=== PATIENT | female | born 1950 | race Caucasian/White ===

== ENCOUNTER 2018-08-12 15:29 | Inpatient (IN) ==
--- NOTE | 2018-08-12 16:24 | Diag Imaging Result Doc PS360 ---
EXAM: CHEST-1 VIEW INDICATION: edema TECHNIQUE: One view COMPARISON: 07/21/2018 FINDINGS: Lung volumes remain low. There is opacification of the left mid and lower lung zone that is very similar to the previous study suggesting airspace consolidation. The right lung appears to be clear. There is no evidence of pneumothorax. Cardiac silhouette is prominent but stable. IMPRESSION: Opacification on the left that is very similar to the previous study suggesting persistent consolidation. Electronically signed by Sigifredo Shi 08/12/2018 4:22 PM
[2018-08-12 16:31] LABS: EOS# 0.08 X1000 (0.0-0.7); EOS% 2.2 % (0.0-10.0); HEMATOCRIT 26.7 % (37.0-47.0); HEMOGLOBIN 7.9 g/dL (12.0-16.0); IMM GRAN# 0.03 X1000 (0.0-0.04); IMM GRAN% 0.8 % (0.0-0.5); LYMPH# 0.75 X1000 (1.2-3.4); LYMPH% 20.8 % (20.5-51.1); MCH 23.4 PG (27-31); MCHC 29.6 g/dL (33-37); MONO# 0.37 X1000 (0.11-0.59); MONO% 10.3 % (1.7-9.3); MPV 10.5 FL (7.4-10.4); NEUT# 2.37 X1000 (1.4-6.5); NEUT% 65.9 % (42.2-75.2); PLT 116 X1000 (130-400); RBC 3.38 XMIL (4.2-5.4); RDW 20.2 % (11.5-14.5)
[2018-08-12 16:45] LABS: ALB/GLOB RATIO 0.9; ALBUMIN 2.7 g/dL (3.5-5.0); CALCIUM 7.6 mg/dL (8.8-10.2); CREATININE 2.7 mg/dL (0.5-0.9); POTASSIUM 3.9 mmol/L (3.5-5.1); TOTAL BILIRUBIN 0.2 mg/dL (0.20-1.00); TOTAL PROTEIN 5.8 g/dL (6.3-8.3)
--- NOTE | 2018-08-12 17:50 | PROVIDER DOCUMENTATION ---
HPI-General Adult - General Chief Complaint: Extremity Pain Stated Complaint: BILATERAL LEG SWELLING Time Seen by Provider: 08/12/18 17:14 Source: patient, family Allergies/Adverse Reactions: Patient Allergies Allergy/AdvReac Type Severity Reaction Status Date / Time No Known Allergies Allergy Verified 08/12/18 18:44 Home Medications: Home Medication List Medication Instructions Recorded Confirmed Last Taken Type Omeprazole [Prilosec] 40 mg PO DAILY 12/25/15 08/12/18 08/11/18 History Spironolactone 50 mg PO BID 12/25/15 08/12/18 08/11/18 History Amitriptyline HCl 1 tab PO QHS 11/18/17 08/12/18 08/11/18 History Clonidine HCl 1 tab PO BID 11/18/17 08/12/18 08/11/18 History Escitalopram [Lexapro] 10 mg PO DAILY 11/18/17 08/12/18 08/11/18 History Gabapentin 1 tab PO [id number] 11/18/17 08/12/18 08/11/18 History Metformin HCl [Metformin HCl ER] 2 tab PO BID 11/18/17 08/12/18 08/11/18 History ROSUVAstatin [Crestor] 1 tab PO QHS 11/18/17 08/12/18 08/11/18 History Insulin Lispro [Humalog Kwikpen 25 unit SQ AC 03/01/18 08/12/18 08/11/18 History U-100] Insulin Glargine [Lantus] 15 unit SUBQ QHS 03/05/18 08/12/18 08/11/18 History Torsemide [Demadex] 20 mg PO DAILY #30 tab 03/06/18 08/12/18 08/11/18 Rx Aspirin/Acetaminophen [Goody's 1 packet PO PRN PRN 07/16/18 08/12/18 08/11/18 History Body Pain Powder Pkt] Budesonide/Formoterol Inhaler 2 puff INH RTBID 07/16/18 08/12/18 08/11/18 History [Symbicort 160/4.5 Microgm Inhaler] Bumetanide 3 mg PO BID 07/16/18 08/12/18 08/11/18 History Ondansetron HCl [Zofran] 4 mg PO PRN PRN 07/16/18 08/12/18 08/11/18 History Potassium Chloride [K-Tab ER] 10 meq PO DAILY 07/16/18 08/12/18 08/11/18 History Levofloxacin [Levaquin] 500 mg PO DAILY #10 tab 07/24/18 08/12/18 08/11/18 Rx Lorazepam [Ativan] 0.5 mg PO TID #30 tablet 07/24/18 08/12/18 08/11/18 Rx Tramadol [Ultram] 50 mg PO Q4H PRN PRN tablet 07/24/18 08/12/18 Unknown Rx - History of Present Illness -Gen Adult Nature of Presenting Problems: THIS IS A 67 YEAR OLD OBESE FEMALE WITH MEDICAL HISTORY OF DIABETES MELLITUS, HYPERTENSION, CONGESTIVE HEART FAILURE, AND ALSO DVT WAS PREVIOUSLY ON XARELTO BUT ACCORDING TO THE PATIENT AND FAMILY, SHE WAS RECENTLY TAKEN OFF XARELTO ABOUT 3 MONTHS AGO DUE TO GIB WHERE SHE WAS ADMITTED AND REQUIRED TRANSFUSION. PATIENT CAME IN TODAY WITH CONCERN OF LEFT LOWER EXTREMITY DISCOMFORT. Location of Pain/Injury: reports: lower extremity (LEFT LOWER EXTREMITY DISCOMFORT.) Pain Radiation: reports: no radiation Review of Systems - Adult - REVIEW OF SYSTEMS - ADULT Constitutional: denies: chills, fever, night sweats, weight loss Eyes: denies: discharge, blurred vision Ears, Nose, Mouth & Throat: reports: no symptoms reported Cardiovascular: reports: no symptoms reported Respiratory: reports: no symptoms reported Gastrointestinal: reports: no symptoms reported Genitourinary: denies: dysuria Musculoskeletal: reports: other (LEFT LOWER EXTREMITY PAIN) Integumentary: reports: no symptoms reported Neurological: reports: no symptoms reported Psychiatric: reports: no symptoms reported Endocrine: reports: no symptoms reported Hematologic/Lymphatic: reports: no symptoms reported Past History - Adult - PAST MEDICAL HISTORY-ADULT Review of Records: reports: Old Records Reviewed Cardiovascular: reports: HTN Respiratory: reports: COPD Neurological: reports: dementia, other (neuropathy) Endocrine/Immune: reports: Diabetes - PRIOR SURGERIES/PROCEDURES Surgical/Procedure History: reports: orthopedic (extremity) (left leg Sx) - IMMUNIZATION STATUS Childhood Immunizations: See Nurse Assessment Flu Vaccine: See Nurse Assessment - FAMILY HISTORY Family History: reviewed, not pertinent Physical Exam-General - PHYSICAL EXAM-ADULT Initial Vital Signs Reviewed: Yes - CONSTITUTIONAL General Appearance: appears well, alert, no apparent distress - EYES Eyes: PERRL/EOMI - HEAD, EARS, NOSE, MOUTH & THROAT HENMT: normocephalic/atraumatic, moist mucous membranes - NECK Neck: non-tender, full range of motion, supple - RESPIRATORY Respiratory: chest non-tender, lungs clear, normal breath sounds - CARDIOVASCULAR Cardiovascular: normal peripheral pulses, regular rate, rhythm, no gallop, no JVD, no murmur, other (BILATEARL LOWER EXTREMITY NONPITTING EDEMA.) - GASTROINTESTINAL (ABDOMEN) Abdominal Exam: normal bowel sounds, non tender, soft - GENITOURINARY Female Genitalia/Pelvic Exam: external exam normal, other (FOBT DONE). negative : active bleeding Rectal Exam: normal rectal tone. negative: black stool, hemorrhoids, mass, tenderness - MUSCULOSKELETAL Back Exam: normal inspection Extremity: normal range of motion, non-tender, normal gait - SKIN Integumentary: normal color, normal turgor - NEUROLOGIC Neurologic: grossly normal - PSYCHIATRIC Psych/Mental Status: normal mood/affect, normal thought content, normal thought process, oriented x 3 Progress - PLAN OF CARE/RESULTS Progress/Plan/Lab Results: Vital Signs - 8 hr 08/12/18 16:00 Temperature 98.0 F Pulse Rate 84 Respiratory Rate 18 Blood Pressure 108/53 O2 Sat by Pulse Oximetry 86 L Laboratory Results - last 24 hr 08/12/18 08/12/18 08/12/18 16:11 16:11 16:11 WBC 3.60 L RBC 3.38 L Hgb 7.9 L Hct 26.7 L MCV 79.0 L MCH 23.4 L MCHC 29.6 L RDW Std Deviation 20.2 H Plt Count 116 L MPV 10.5 H Immature Gran % (Auto) 0.8 H Neut % (Auto) 65.9 Lymph % (Auto) 20.8 Arthur % (Auto) 10.3 H Eos % (Auto) 2.2 Baso % (Auto) 0.0 Immature Gran # (Auto) 0.03 Neut # (Auto) 2.37 Lymph # (Auto) 0.75 L Arthur # (Auto) 0.37 Eos # (Auto) 0.08 Baso # (Auto) 0.00 D-Dimer, Quantitative Sodium 134 L Potassium 3.9 Chloride 94 L Carbon Dioxide 23 L Anion Gap 17 BUN 37 H Creatinine 2.7 H Estimated GFR/1.73 m2 18 BUN/Creatinine Ratio 14 Glucose 101 Calculated Osmolality 277 Calcium 7.6 L Total Bilirubin 0.20 AST 19 ALT 27 Alkaline Phosphatase 88 Creatine Kinase 48 Troponin T [id number]-Dudvailwghs Pept 2514 H Total Protein 5.8 L Albumin 2.7 L Globulin 3.1 Albumin/Globulin Ratio 0.9 Plasma Lactate 08/12/18 08/12/18 08/12/18 16:11 16:11 16:11 WBC RBC Hgb Hct MCV MCH MCHC RDW Std Deviation Plt Count MPV Immature Gran % (Auto) Neut % (Auto) Lymph % (Auto) Arthur % (Auto) Eos % (Auto) Baso % (Auto) Immature Gran # (Auto) Neut # (Auto) Lymph # (Auto) Arthur # (Auto) Eos # (Auto) Baso # (Auto) D-Dimer, Quantitative 1.02 H Sodium Potassium Chloride Carbon Dioxide Anion Gap BUN Creatinine Estimated GFR/1.73 m2 BUN/Creatinine Ratio Glucose Calculated Osmolality Calcium Total Bilirubin AST ALT Alkaline Phosphatase Creatine Kinase Troponin T 0.011 Yrk-W-Rxgfjitajst Pept Total Protein Albumin Globulin Albumin/Globulin Ratio Plasma Lactate 2.4 H Orders Category Date Time Status CHEST-1 VIEW [RAD] Stat Exams 08/12/18 15:43 Completed BLOOD CULTURE [BLDCUL] Stat Lab 08/12/18 16:11 Ordered CBC WITH ELECTRONIC DIFF [HEME] Stat Lab 08/12/18 16:11 Completed CK PROFILE [SP CHEM] Stat Lab 08/12/18 16:11 Completed COMPREHENSIVE METABOLIC PANEL [CHEM] Stat Lab 08/12/18 16:11 Completed D-DIMER [COAG] Stat Lab 08/12/18 16:11 Completed LACTATE, PLASMA [CHEM] Stat Lab 08/12/18 16:11 Completed LACTATE, PLASMA [CHEM] Stat Lab 08/12/18 17:41 Uncollected OCCULT BLOOD SCREENING [STOOL] Stat Lab 08/12/18 17:41 Uncollected PRO B-NATRIURETIC PEPTIDE Stat Lab 08/12/18 16:11 Completed TROPONIN T Stat Lab 08/12/18 16:11 Completed TROPONIN T Stat Lab 08/12/18 17:44 Ordered EKG [EKG] Stat Ther 08/12/18 15:44 Ordered Venous U/S Bilateral Legs Stat Ther 08/12/18 17:42 Ordered Result Diagrams: 08/12/18 16:11 08/12/18 16:11 - REASSESSMENT Reassessment #1 Time Reassessed: 17:55 Status: other (PENDING BILATEARL LOWER EXTREMITY US FOR ELEVATED DDIMER. FOBT DONE AND PENDING RESULT. PATIENT SIGNED OUT TO DR. ORTIZ WHO WILL CONTINUE WITH PATIENT CARE.) - EKG 1 Time of EKG reading by physician:: 17:57 EKG Read and Signed by:: Vidal Payne EKG Interpretation (*Must complete 3 of following elements*): Normal Rate: 100 Rhythm: SINUS RHYTHM WITH PREMATURE ATRIAL COMPLEXES [place]: normal QRS: normal MD Interval: normal ST Wave: normal - CONSULTS/PCP/HOSPITALIST Notification #1 *Consult/PCP/Hospitalist*: Dr Lopez Time Discussed: 19:18 Consult Disposition: Will see in ED (Pt discussed with Dr Lopez who agreed to admit.) - CHANGE OF SHIFT REPORT (ED Provider) Report Given and Care Transferred to:: ANGEL Time of Transfer: 17:57 Items Pending: Labs, Ultrasound Results Comment: Results discussed with Pt who wants to talk to her daughter before she considers being admitted. Pt care transferred to Dr Iglesias at 1900. Departure - Departure Date of Disposition Decision: 08/12/18 Time of Disposition Decision: 19:19 DIAGNOSIS: Sepsis, Pneumonia, Cellulitis, CHF (congestive heart failure) Disposition: ADMITTED INPATIENT 09 Certified Medical Emergency: Emergent Condition: Fair - Critical Care Note This patient required my direct & personal management of CC.: Yes Total Time (mins): 30 Critical Care Statement: This patient required my direct personal management to treat or rule out processes, the absence of which, could potentiallly result in sudden, clinically significant life or limb threatening deterioration. Attestation - Physician/ MARCE Attestation The physician spent face to face time with patient:: Yes Advanced Practice Provider documentation review:: Supervising physician onsite and consulted in the evaluation and care of this patient. The physician did have a face to face encounter with the patient.
[2018-08-12] MEDS ORDERED: ROCEPHIN 1 GM in NS 50 ML IV ONE (18:59)
[2018-08-12] MEDS ORDERED: VANCOMYCIN IV PER PHARMACY MISC SCH (21:00)
[2018-08-12 21:03] LABS: INR 0.92; PROTIME 13.1 Seconds (11.0-16.0)
[2018-08-12 21:04] LABS: PTT 37.6 Seconds (22.3-41.8)
[2018-08-12] MEDS: ZOSYN 2.25 GM in NS 50 ML IV SCH (21:17)
[2018-08-12] MEDS ORDERED: NS 500 ML IV ONE (21:45)
[2018-08-12] MEDS ORDERED: VANCOMYCIN 2,000 MG in NS 500 ML IV ONE (22:00)
[2018-08-12 22:17] LABS: ALLEN TEST YES; BE 2.9 mmoll (-3.0-3.0); BLOOD TYPE ARTERIAL; HCO3-(ACT) 27.1 mmoll (20.0-26.0); METHB 0.6 % (0.0-1.5); O2(CT) 10.3 mL/dL (15.0-23.0); PO2(98.6) 67 mmHg (60-100); SAMPLE BLOOD; SAO2 94.3 % (95.0-100.0); THB 8.2 g/dL (11.5-17.4)
[2018-08-12 22:20] LABS: PCO2(98.6) 61 mmHg (35-45)
[2018-08-12 22:21] LABS: MODALITY CANNULA; O2HB 88.4 % (95.0-99.0)
[2018-08-12 22:55] LABS: URINE SOURCE CATH
[2018-08-12 23:01] LABS: BILIRUBIN URINE NEGATIVE (NEGATIVE); BLOOD URINE NEGATIVE (NEGATIVE); COLOR YELLOW; GLUCOSE URINE NEGATIVE (NEGATIVE); KETONE URINE NEGATIVE (NEGATIVE); LEUKOCYTES URINE NEGATIVE (NEGATIVE); NITRITE URINE NEGATIVE (NEGATIVE); PH URINE 5.5; PROTEIN URINE 30 mg/dL (NEGATIVE); SP GRAVITY URINE 1.004; TURBIDITY URINE CLEAR (CLEAR); UR EPITHELIAL CELLS <10 /HPF (<10); URINE BACTERIA NEGATIVE /HPF; URINE WBC <10 /HPF (<10); UROBILINOGEN URINE NORMAL (NORMAL)
[2018-08-12] MEDS: DUONEB (A & A) INH SCH (23:05)
[2018-08-12] MEDS ORDERED: PROTONIX IV SCH (23:30)
[2018-08-13] MEDS ORDERED: NS 500 ML IV ONE ×2 (00:36→02:34)
[2018-08-13] MEDS ORDERED: NS 1,000 ML IV SCH (00:45)
[2018-08-13] MEDS: SODIUM CHLORIDE 0.9% INJ SCH (00:57)
[2018-08-13] MEDS: DUONEB (A & A) INH SCH ×6 (03:05→23:24)
[2018-08-13 04:56] LABS: EOS# 0.07 X1000 (0.0-0.7); EOS% 2.3 % (0.0-10.0); HEMATOCRIT 24.1 % (37.0-47.0); IMM GRAN# 0.03 X1000 (0.0-0.04); LYMPH# 0.68 X1000 (1.2-3.4); LYMPH% 22.3 % (20.5-51.1); MCH 23.2 PG (27-31); MCV 79.8 FL (81-99); MONO# 0.42 X1000 (0.11-0.59); MONO% 13.8 % (1.7-9.3); MPV 9.6 FL (7.4-10.4); NEUT# 1.85 X1000 (1.4-6.5); NEUT% 60.6 % (42.2-75.2); PLT 106 X1000 (130-400); RBC 3.02 XMIL (4.2-5.4); RDW 20.4 % (11.5-14.5); WBC 3.05 X1000 (4.8-10.8)
[2018-08-13 05:26] LABS: ALBUMIN 2.4 g/dL (3.5-5.0); CALCIUM 7.9 mg/dL (8.8-10.2); CREATININE 2.4 mg/dL (0.5-0.9); PHOSPHORUS 5.6 mg/dL (2.7-4.5); POTASSIUM 3.3 mmol/L (3.5-5.1)
[2018-08-13 05:44] LABS: FERRITIN 37 ng/mL (13-150)
[2018-08-13] MEDS: ZOSYN 2.25 GM in NS 50 ML IV SCH ×2 (05:45→14:08)
[2018-08-13 06:29] LABS: ALLEN TEST YES; BE 1.5 mmoll (-3.0-3.0); BLOOD TYPE ARTERIAL; HCO3-(ACT) 26.1 mmoll (20.0-26.0); METHB 0.7 % (0.0-1.5); O2HB 94.4 % (95.0-99.0); PO2(98.6) 103 mmHg (60-100); SAMPLE BLOOD; SAO2 98.1 % (95.0-100.0); THB 7.4 g/dL (11.5-17.4); pH(98.6) 7.28 (7.35-7.45)
[2018-08-13 06:30] LABS: MODALITY BI PAP; PCO2(98.6) 61 mmHg (35-45)
[2018-08-13] MEDS ORDERED: HUMALOG SUBQ SCH (07:00)
--- NOTE | 2018-08-13 07:09 | Diag Imaging Result Doc PS360 ---
EXAM: CT HEAD W/O CONTRAST 08/12/2018 HISTORY: AMS TECHNIQUE: This exam was performed using automated exposure control, adjustment of mA or kV according to patient size, and/or use of iterative reconstruction technique. COMMENT: There are calcifications in the internal carotid arteries bilaterally. There is no evidence of mass effect, bleed, abnormal extra-axial fluid collection, or hydrocephalus. The visualized paranasal sinuses are clear. There is hyperostosis frontalis interna. The calvarium is intact. Compared to the previous study of 07/16/2018 the appearance of the brain has not changed significantly. IMPRESSION: No evidence of acute disease. Electronically signed by Maykel Rodríguez 08/13/2018 7:07 AM
--- NOTE | 2018-08-13 07:18 | Diag Imaging Result Doc PS360 ---
EXAM: CHEST-PORTABLE INDICATION: PNA,Acute Resp. Failure TECHNIQUE: One view COMPARISON: 08/12/2018 FINDINGS: Left-sided consolidation appears slightly less dense as compared to the previous study. No new consolidation is identified. Cardiac silhouette is stable. IMPRESSION: Likely slight interval improvement. Electronically signed by Sigifredo Shi 08/13/2018 7:15 AM
--- NOTE | 2018-08-13 07:44 | EKG Report ---
Test Performed on : 08/12/2018 5:17:17 PM Test Reason : edema Blood Pressure : / mmHG Vent. Rate : 100 BPM Atrial Rate : 100 BPM P-R Int : 160 ms QRS Dur : 092 ms QT Int : 352 ms P-R-T Axes : 043 052 161 degrees QTc Int : 454 ms Sinus rhythm. with premature atrial complexes. ST & T wave abnormality, consider lateral ischemia Abnormal ECG When compared with ECG of 17-JUL-2018 10:14, premature atrial complexes. are now present Vent. rate has increased BY [address] no longer elevated in Inferior leads ST now depressed in Lateral leads Nonspecific T wave abnormality now evident in Inferior leads T wave inversion now evident in Lateral leads Unconfirmed Result
--- NOTE | 2018-08-13 09:48 | HISTORY AND PHYSICAL ---
PRIMARY CARE PROVIDER: Dr. Wallace Meyer. TIME HISTORY AND PHYSICAL ASSESSMENT PERFORMED: 08/12/2018 at 2100. CHIEF COMPLAINT: Bilateral lower extremity swelling, erythema with pain that is worse in her left lower extremity. HISTORY OF PRESENT ILLNESS: Ms. Ndiaye is a 67-year-old, female, with a past medical history most notable for COPD requiring home oxygen use with ongoing continued tobacco abuse. She also has a history of diabetes, mellitus, type 2, hypertension, anemia, chronic renal failure, congestive heart failure and history of previous left lower extremity DVT. The patient was recently admitted to our facility on 07/16/2018. She was discharged on 2017. During this visit she was treated for COPD exacerbation and left lower lobe pneumonia. According to the ER note, the patient presented to the ER today complaining of left lower extremity discomfort. During her ER evaluation she was noted to be anemic with a hemoglobin of 7.9 and hematocrit 26.7. She also did appear to have decreased renal function with a creatinine of 2.7, BUN of 37 and GFR of 18. They also did perform a D-dimer which was elevated at 1.02. They did perform a test of chest x-ray which showed that the patient had an opacification in the left, very similar to the previous study suggesting persistent consolidation. They also performed a venous Doppler bilateral lower extremities for which the ER physician, Dr. Iglesias, reported verbally that this was a negative venous study. I really do not have an official report at this time to confirm this. She was noted in the initial ER note to be awake, alert and oriented times three. Upon my examination in the ER, the patient was very lethargic. It did take verbal and tactile stimulation to get her to awaken and once awoken she was only initially oriented to her name but did later tell us where she was. She could not say the month or date. Once she had answered a question she would drift back off to sleep. Given these findings, we did perform arterial blood gasses which showed that the patient was hypercapnic with a PC02 of 61. The patient does have COPD and does appear to be a chronic retainer. This was not that much high than what her baseline is. We did go ahead and place her on BiPAP as well, though did perform a CT head without contrast which did show no acute intracranial abnormalities. They did place a Eason catheter. The patient showed no signs of infection. During the patient's Eason catheter being placed she did become a little bit more awake. I was able to get her to report to me that she was complaining of shortness of breath and had had a cough. She denied any chest pain. She did report that she does have chronic swelling in bilateral lower extremities and that they do chronically hurt though the erythema and warmth was new. Other than this, I was not able to get much more information from the patient at this time. The patient will be placed inpatient and admitted to the ICU for further treatment and evaluation. REVIEW OF SYSTEMS: Unfortunately at this time we are unable to perform a complete review of systems due to patient's current condition and mentation. PAST MEDICAL HISTORY: This was obtained from previous medical records: 1. COPD with home oxygen use for which I believe is 2 to 3 liters nasal cannula. It also reported in previous records that the patient had been noncompliant with wearing her oxygen in the past. 2. Diabetes mellitus, type 2. 3. Hypertension. 4. History of left lower extremity DVT. 5. Anemia. 6. History of gastrointestinal bleeding. 7. Chronic kidney disease. 8. Chronic lymphedema. 9. Morbid obesity. 10.History of moderate to severe pulmonary hypertension with a PA pressure of 64 to 69 on echocardiogram performed in February 2018. 11.History of right-sided heart failure. PAST SURGICAL HISTORY: 1. Cholecystectomy. 2. Tubal ligation. 3. Left leg surgery. SOCIAL HISTORY: According to the patient's last history and physical performed at the end of June 2018, the patient at that time did live with her daughter and . It is reported that she smoked more than three packs per day at that time and has been smoking this way for 30 years. There is no known alcohol or illicit drug use. FAMILY HISTORY: Remarkable for siblings with breast cancer and renal cancer. Both of her parents had a history of CVAs. ALLERGIES: THE PATIENT HAS NO KNOWN ALLERGIES. HOME MEDICATIONS: 1. Amitriptyline 25 mg p.o. nightly. 2. Symbicort 160 mg/4.5 mcg inhaler two puffs inhaled b.i.d. 3. Bumetanide 3 mg p.o. b.i.d. 4. Clonidine 0.1 mg p.o. b.i.d. 5. Lexapro 10 mg p.o. daily. 6. Gabapentin 800 mg p.o. four times a day. 7. Lantus 15 units subcutaneously nightly. 8. Humalog Kwik-Pen U-100 25 units subcutaneously AC. 9. Levaquin 500 mg p.o. daily. 10.Ativan 0.5 mg p.o. t.i.d. 11.Metformin extended release 500 mg p.o. b.i.d. 12.Prilosec 40 mg p.o. daily. 13.Zofran 4 mg p.o. p.r.n. for nausea. 14.Potassium chloride 10 mEq p.o. daily. 15.Crestor 20 mg p.o. nightly. 16.Spironolactone 50 mg b.i.d. 17.Demadex 20 mg p.o. daily. 18.Ultram 10 mg p.o. q 4 hours p.r.n. for pain. DIAGNOSTIC DATA/LABORATORY RESULTS: White blood cell count is 3,600, hemoglobin 7.9, hematocrit 26.7, platelet count is 116. PT 13.1, INR 0.92, PTT is 37.6, D-dimer is 1.02. Sodium 134, potassium 3.9, chloride 94, serum bicarb is 23, BUN 37, creatinine 2.7 with a GFR of 18, glucose 101, calcium 7.6. Liver function test within normal limits. CK 48, troponin initial was 0.011 but repeat was less than 0.001. Plasma was 2.4 with a repeat of 1.8. Urinalysis was obtained via catheter. It was positive for protein, and 10 to 20 red blood cells. It was negative for glucose, ketones, blood, nitrites, leukocytes, and bacteria. Arterial blood gasses were obtained on nasal cannula at 2 liters, pH was 7.3, PCO2 61, PO2 67, HC03 is 27.1, base excess of 2.9, oxyhemoglobin is 88.4. Her saturation is 94.3. Carboxyhemoglobin is 5.7. EKG showed sinus rhythm with premature atrial complexes at a rate of 100 with a QTc of 454. Chest x-ray showed opacification on the left that is very similar to the previous study suggesting persistent consolidation. CT head without contrast showed expected intracranial exam for age, without acute intracranial abnormality. There was no interval change from previous. PHYSICAL EXAMINATION: VITAL SIGNS: Temperature 98, heart rate 90, respirations 20, blood pressure is 104/57, oxygen saturation is 96% on BiPAP. GENERAL: Ms. Ndiaye is a 67-year-old, obese, female. She was resting in the ER stretcher. She is very drowsy. She is responsive to verbal and light tactile stimulation though was only alert and oriented to person and place, not time. She does drift right back off to sleep after answering questions. It was difficult to obtain HPI and past medical history due to her mentation. HEENT: Head: Atraumatic, normocephalic. Pupils are equal, round and reactive to light, were 3 mm bilaterally and brisk. Oral mucosa was slightly dry. Oropharynx was clear. NECK: Supple. Trachea in midline. CARDIOVASCULAR: The patient has S1, S2. No murmurs, gallops or rubs appreciated with a regular rate and rhythm. PULMONARY: The patient has symmetrical chest expansion bilaterally. Lung sounds in the upper rocha did have some rhonchi noted. She does have crackles noted in bilateral bases. ABDOMEN: Soft, does not appear to be distended though the patient has a protuberant abdomen noted. She was nontender upon palpation. Bowel sounds were present in all four quadrants and were normoactive. EXTREMITIES: No cyanosis or clubbing noted. The patient does have swelling noted to bilateral lower extremities from approximately the knee down. She does have a history of chronic lymphedema. Both of her lower extremities from her knee down are erythematous and warm to the touch. Radial pulses were 2+. Pedal pulses were difficult to palpate. Did have to use the assistance of a venous Doppler on her right lower extremity. The left lower extremity pulses were 1+. Capillary refill at this time is less than 3. INTEGUMENTARY: The patient's skin is pink, warm and dry. NEUROLOGIC: The patient is drowsy though is arousable to verbal and tactile stimulation. Once awoken she is alert and oriented to person and place only, not time. She is able to move all extremities though at this time complete neurologic exam is difficult due to her current condition and mentation. ASSESSMENT AND PLAN: 1. Left lower lobe pneumonia. The patient has recently been admitted to the hospital approximately two to three weeks ago for treatment of pneumonia with discharge with antibiotic of Levaquin. Given this we decided to place her with antibiotic coverage of Vancomycin and Zosyn for healthcare associated pneumonia. Blood cultures and sputum culture have been ordered. We will continue with aggressive pulmonary toilet with scheduled DuoNeb treatment, incentive spirometry and frequent encouragement of turn causing deep breathing. We will perform a VQ lung scan in the morning. We will continue to follow. 2. Acute on chronic hypercapnic and hypoxic respiratory failure. The patient's PCO2 level was elevated at 61 and she was having some confusion and lethargy so we did place her on BiPAP at this time. She is resting comfortably on BiPAP. She has maintained adequate oxygen saturations from 95 to 96%. We will continue to monitor her respiratory status closely and repeat an ABG in the morning. 3. Bilateral lower extremity cellulitis. For treatment of this we have placed this patient with antibiotic coverage as mentioned above of Vancomycin and Zosyn. 4. Possible sepsis. The patient does have source of infection of pneumonia and bilateral lower extremity cellulitis. She has been afebrile. White blood cell count is 3, 600. She is not tachycardic though has had some borderline low blood pressures. We will continue to monitor this closely. The patient has been placed on empiric antibiotics. Blood cultures and sputum culture have been obtained. Will continue to monitor this closely. 5. Encephalopathy. This would be multifactorial. The patient was hypercapnic and hypoxic. She also does take some medicines that could have effect on her neurological status such as amitriptyline, gabapentin, Ativan and tramadol. She also does have an acute kidney injury at this time which may be affecting this as well. We have placed her with frequent neuro checks. Her CT of the head without contact was negative for any acute intracranial abnormality. We will continue to follow. 6. Microcytic anemia. The patient has had a drop from her previous hemoglobin and hematocrit that was just collected on 07/24. She does have a history of gastrointestinal bleeding in the past. We have ordered a Hemoccult stool and will continue to monitor this closely. Will repeat her hemoglobin and hematocrit in the morning and transfuse if necessary. 7. Rule out deep vein thrombosis. The patient does have a history of left lower extremity deep vein thrombosis. She was previously on Xarelto but this did have to be discontinued due to her gastrointestinal bleeding according to her previous medical records. She has complained of increased swelling, erythema, warmth and pain in her bilateral lower extremities. A venous Doppler was performed in the ER and Dr. Iglesias, the ER physician, did give a verbal report that this study was negative though we do not have a study at this time to confirm this. We will continue to await those results. 8. Diabetes mellitus, type 2. The patient does have an acute kidney injury at this time. We will hold her metformin. Will place on Lispro sliding scale insulin but given that she is NPO we have placed this patient specific to only be treated if greater than 200. 9. Acute on chronic kidney disease. The patient does have increased creatinine of 2.7 from a previous of 0.7 and a GFR of 18. We are providing some gentle fluid hydration with normal saline. We will avoid nephrotoxic medication and renally dosed medicines as necessary. Continue to follow. 10.Venous thromboembolism prophylaxis. At this time we are awaiting venous Doppler lower extremities results. If this is negative we can place sequential compression devices or NEIL hose on the patient. We are holding anticoagulants at this time given that the patient is anemic and does have a history of gastrointestinal bleeding. We are ruling out possible gastrointestinal bleeding. The patient has been placed in ICU with telemetry. She will have vital signs per ICU protocol. Will do frequent neuro checks. She will be NPO at this time until she becomes more awake and alert. We will repeat a CBC, renal profile and arterial blood gas in the morning. As well, we have ordered an anemia profile. Further orders and recommendations pending hospital course, diagnostic studies and physician evaluation. Dictated by TOM Allan for Clint Lopez MD I have performed a face to face diagnostic evaluation. Labs/ Xrays- reviewed. Chest- rhonchi A/P- Pneumonia, sepsis- Admit, IV ABX, check blood cultures Dr. Lopez cc: MD Wallace Sargent Jr, MD MTDD
--- NOTE | 2018-08-13 10:01 | PROGRESS NOTE ---
DATE: 08/13/2018 SUBJECTIVE: The patient is on BiPAP. Nurses say she has not been talking to them very much. She said just a word or two to me that was appropriate and then she fell off asleep and would not talk to me any more. She comes with exacerbation of COPD, left lower, left mid lung infiltrate, cellulitis lower extremities, possible congestive heart failure, elevated D-dimer, anemia with a hemoglobin this morning down to 7.0, history of GI bleed, AODM, morbid obesity, hypotension with a systolic pressure down to 70, now it is back up to 85. OBJECTIVE: Please see vital signs in chart. HEENT: She is normocephalic. On BiPAP. Lungs: Have a few scattered rhonchi anteriorly. Heart: Regular rate and rhythm without murmurs, gallops, or friction rubs. Abdomen: Soft. Active bowel sounds. No organomegaly or tenderness. Extremities: Lower extremities are swollen and red consistent with some cellulitis. She has a history of lymphedema as well. LABORATORY: Potassium was a little low at 3.0. ASSESSMENT: 1. Exacerbation of chronic obstructive pulmonary disease. 2. Cellulitis. 3. Hypotension. 4. Diabetes mellitus. 5. Congestive heart failure. 6. Anemia. Stool was negative for blood but still concerned that there could be a GI bleed. 7. Renal failure. PLAN: Will consult Pulmonology, Cardiology, Nephrology as her creatinine was 2.7 and she has renal failure. Will consult Infectious Disease. Continue support. Will transfuse. Will consult GI as well. Condition guarded. cc: Wallace Meyer Jr, MD
[2018-08-13 10:21] LABS: IRON SATURATION 25 %; TIBC 260 ug/dL; TOTAL IRON 66 ug/dL (49-151); UNBOUND IRON 194 ug/dL (112-346)
[2018-08-13] MEDS: POTASSIUM CHLORIDE 20 MEQ/SWI 20 MEQ/100 ML IVPB IV SCH ×2 (10:42→13:30)
[2018-08-13] MEDS: PROTONIX IV SCH ×2 (10:52→21:21)
[2018-08-13] MEDS ORDERED: NS 250 ML ONE (11:27)
--- NOTE | 2018-08-13 13:36 | Diag Imaging Result Doc PS360 ---
EXAM: LUNG SCAN / VQ 08/13/2018 HISTORY: Hypoxia,Dyspnea,Elevated D-dimer TECHNIQUE: 41.7 mCi of technetium 99m DTPA aerosol and 5.8 mCi of technetium MAA. COMMENT: The study is limited to anterior and posterior projection due to the patient's clinical condition. There is decreased ventilation to the left lower chest due to cardiomegaly. There is actually better perfusion activity in this area than ventilation. There are no absolute segmental or subsegmental perfusion defects. IMPRESSION: Low probability for pulmonary emboli. Electronically signed by Maykel Rodríguez 08/13/2018 1:34 PM
[2018-08-13] MEDS: HUMALOG SUBQ SCH ×3 (14:03→21:20)
[2018-08-13] MEDS: TEFLARO 600 MG in NS 250 ML IV SCH (15:03)
[2018-08-13 15:23] LABS: URINE SOURCE CATH
[2018-08-13 15:32] LABS: BILIRUBIN URINE NEGATIVE (NEGATIVE); BLOOD URINE LARGE (NEGATIVE); COLOR YELLOW; GLUCOSE URINE NEGATIVE (NEGATIVE); KETONE URINE NEGATIVE (NEGATIVE); LEUKOCYTES URINE SMALL (NEGATIVE); NITRITE URINE NEGATIVE (NEGATIVE); PH URINE 5.5; PROTEIN URINE 30 mg/dL (NEGATIVE); SP GRAVITY URINE 1.005; TURBIDITY URINE CLEAR (CLEAR); UROBILINOGEN URINE NORMAL (NORMAL)
[2018-08-13 15:37] LABS: UR EPITHELIAL CELLS <10 /HPF (<10); URINE BACTERIA NEGATIVE /HPF; URINE WBC <10 /HPF (<10)
[2018-08-13 15:39] LABS: UR CREAT RANDOM 31.1 mg/dL (11-20); UR PROT RANDOM 34.4 mg/dL
[2018-08-13 15:55] LABS: URINE CASTS GRANULAR PRESENT; URINE CRYSTALS NONE SEEN; URINE SMALL ROUND CELLS NONE SEEN; URINE YEAST NONE SEEN
[2018-08-13] MEDS: LOTRIMIN 1% CREAM TOP SCH (16:47)
--- NOTE | 2018-08-13 17:53 | NEPHROLOGY CONSULTATION ---
DATE: 08/13/2018 REASON FOR CONSULTATION: Acute kidney injury. HISTORY OF PRESENT ILLNESS: Ms. Ndiaye is a 67-year-old white female who has severe COPD requiring home oxygen. She has ongoing tobacco abuse. Diabetes, obesity, hypertension, congestive heart failure, history of DVT, etc. She was recently hospitalized at this facility with pneumonia and she was discharged on oral Levaquin. Her last creatinine was 0.7 on July 24. She has done poorly since discharge with declining status. More shortness of breath, lower extremity discomfort and weakness. Because of her worsening performance status and symptoms she came to the emergency room where she was hypotensive and anemic and had acute kidney injury. She was lethargic. She was treated with BiPAP. CT of the head was unremarkable. She was admitted to the intensive care unit with a diagnosis of pneumonia, respiratory failure, possible sepsis. She has been treated with BiPAP and IV fluids as well as empiric broad-spectrum antibiotics. She has not received any IV contrast or any nephrotoxic medications. She is receiving vancomycin at this time. Having received 1.5 L of bolus IV fluids, she is now on normal saline at 75 mL an hour. Her creatinine was 2.7 on presentation, 2.4 today. Urine output has been good. She is awake, alert. She states she does not normally have swelling. No chest pain palpitation. PAST MEDICAL HISTORY: As above. HOME MEDICATIONS: Include: Levaquin, spironolactone, omeprazole, amitriptyline , clonidine, escitalopram, metformin, rosuvastatin, gabapentin, insulin, torsemide, ondansetron, bumetanide, budesonide, potassium, aspirin, tramadol, levofloxacin, lorazepam. ALLERGIES: None. SOCIAL HISTORY: As above. She lives with her and daughter. FAMILY HISTORY: Otherwise, noncontributory. REVIEW OF SYSTEMS: Otherwise, noncontributory. PHYSICAL EXAMINATION: Vital Signs: Blood pressure 85/57, heart rate 84, respirations 16, afebrile. General: Obese white female on BiPAP, no distress. Skin: Warm and dry with a few bruises. HEENT: Conjunctivae are pink. Pupils are equal. Oropharynx is dry. Tongue is midline. Neck: Neck veins are not visible. Trachea is midline. Heart: Regular. No gallops, murmurs, rubs. Lungs: Have equal excursion. Shallow, no crackles or wheezes. Abdomen: Obese, soft, nontender. Bowel sounds are present. Extremities: Have 1+ edema. No clubbing or cyanosis. IMPRESSION: Acute kidney injury, presumably acute tubular necrosis secondary to sepsis. Certainly, she is at risk for ATN because of sepsis and hypotension. She did receive Levaquin at home which can also be a risk for acute tubular necrosis. She has no indications for dialysis at this time. Modest hypokalemia, but acid-base is in target. I will stop her IV fluids at this time. She may need vasopressors if her blood pressure remains low. cc: MD Wallace Truong Jr, MD MTDD
--- NOTE | 2018-08-13 18:15 | Diag Imaging Result Doc PS360 ---
EXAM: US RENAL 2 (RETROPER) COMPLETE 08/13/2018 HISTORY: decreased renal function TECHNIQUE: Renal ultrasound COMMENT: The detail is suboptimal due to the patient's body habitus. There is no evidence of hydronephrosis or mass. There is a cyst in the left mid anterior renal cortex. The right kidney is 11.6 x 5.5 x 6.2 cm the left is 10.9 x 6 x 6.6 cm. The urinary bladder was not demonstrated. IMPRESSION: No evidence of obstructive uropathy. Electronically signed by Maykel Rodríguez 08/13/2018 6:13 PM
--- NOTE | 2018-08-13 18:21 | ECHO REPORT ---
ORDER DATE: 08/13/2018 INDICATIONS: A 67-year-old female with COPD, CHF, hypertension, and diabetes. M-MODE MEASUREMENTS: Left ventricle end diastole: 5.1 cm. Left ventricle end systole: 3.6 cm. Posterior wall: 1.3 cm. Interventricular septum: 1.3 cm. Left atrium: 5.0 cm. Aortic root: 3.0 cm. SUMMARY OF 2-DIMENSIONAL IMAGIN. The left ventricular function is normal. Ejection fraction is estimated visually to be in the order of 65%. There is no wall motion abnormality noted. 2. The right ventricle appears to be mild to moderately enlarged. 3. There is moderate calcification of the mitral annulus. 4. There is a trivial pericardial effusion. 5. The inferior vena cava is moderately enlarged. 6. The tricuspid valve shows a moderate degree of regurgitation. 7. Pulmonary pressure is estimated at 64 mmHg. 8. The mitral valve shows mild degree of regurgitation. 9. Pulse wave Doppler of mitral inflow is normal. 10.Tissue Doppler of septal and lateral mitral annulus averages 5 and a half cm. There is impaired left ventricular relaxation. 11.Aortic valve appears to be grossly normal. 12.The pulmonic valve also appears to be grossly normal. 13.Definity was added to this study to optimize visualization of the endocardium. Clinical correlation recommended. cc: MD Cristofer Mercado MD Roger H. Moss Jr, MD
--- NOTE | 2018-08-13 18:24 | CONSULTATION ---
DATE OF CONSULTATION: 08/13/2018 IMPRESSION: 1. Respiratory failure, probably more related to severe chronic obstructive pulmonary disease, obstructive sleep apnea, and possible recurrent pneumonia. Cannot exclude congestive heart failure. Elevated B type natriuretic peptide level is nonspecific in the setting of renal dysfunction. 2. Chief complaint of lower extremity pain with clinical findings suggesting cellulitis. 3. Anemia, recurrent. 4. Acute on chronic renal dysfunction. 5. Severe chronic obstructive pulmonary disease. 6. Morbid obesity. 7. Diabetes type 2. RECOMMENDATIONS: Repeat limited echocardiography to better assess volume status. 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 She presented with complaint of left lower extremity pain. She was found to be anemic and with elevated BUN and creatinine. She was found to have hypoxemia as well as hypercapnia. Chest x-ray reportedly revealed left lower lung infiltrate, which was persistent. The cardiac silhouette was enlarged. She denies any chest discomfort or dyspnea. She denies cough. She seems somewhat drowsy in the setting of hypercapnia. PAST MEDICAL HISTORY: 1. Severe COPD requiring chronic home oxygen. 2. Probable obstructive sleep apnea. 3. Obesity. 4. Chronic left lower extremity DVT. 5. Hypertension. 6. Diabetes mellitus type 2 with associated peripheral neuropathy. 7. Cor pulmonale. PAST SURGICAL HISTORY: Left lower extremity surgery and cholecystectomy. ALLERGIES: She has no known drug allergies. MEDICATIONS PRIOR TO ADMISSION: As listed. SOCIAL HISTORY: She lives with her daughter. She has a history of chronic heavy cigarette use. She does not use alcohol. She is not very mobile and ambulates only to get to the bathroom. FAMILY HISTORY: Negative for premature coronary disease. REVIEW OF SYSTEMS: Pulmonary: Negative for dyspnea or cough. Gastrointestinal: Negative for melena or bright red blood per rectum. Constitutional: Noncontributory. Remainder of review of systems negative/noncontributory with 14 total systems reviewed. PHYSICAL EXAMINATION: General: This is an obese white female in no distress, on BiPAP. The patient is somewhat drowsy. Vital Signs: Blood pressure 106/78, heart rate 85 and regular, oxygen saturation 97% on BiPAP with 40% oxygen. HEENT: Extraocular movements appear intact. Mucous membranes are moist. Neck: Supple. Jugular venous distention cannot be appreciated given the patient's obese neck. Chest: Clear to auscultation anteriorly. Cardiac Exam: Reveals a regular rate and rhythm without appreciable murmur, rub, or gallop. Abdomen: Soft, nontender. Bowel sounds are normal. Extremities: Mild pretibial edema. The distal left lower extremity is very erythematous. Chronic venous stasis changes are evident in both lower extremities. LABORATORY DATA: White blood cell count 3.5, hematocrit 24.1, hemoglobin 7.0, platelet count 106,000. Sodium 139, potassium 3.3, chloride 100, carbon dioxide 27, BUN 32, creatinine 2.4, glucose 84. Troponin T less than 0.01. Albumin 2.4. DIAGNOSTIC STUDIES: A 12-lead EKG demonstrates sinus rhythm with occasional premature ventricular complex, occasional premature atrial complex, and nonspecific ST and T-wave abnormality. Chest x-ray reports left-sided consolidation, less dense as compared to previous study. Cardiac silhouette enlarged. cc: MD Wallace Farfan Jr, MD
--- NOTE | 2018-08-13 19:32 | CONSULTATION ---
DATE OF CONSULTATION: 08/13/2018 REQUESTING PHYSICIAN: Dr. Meyer. REASON FOR CONSULTATION: Anemia. HISTORY OF PRESENT ILLNESS: Ms. Ndiaye is a 67-year-old female who was admitted on 08/12/2018 for bilateral lower extremity swelling, erythema and cellulitis. She also has history of COPD on home oxygen and ongoing tobacco abuse. She was noted to be anemic and Gastroenterology was consulted. Her Hemoccult was negative. Her last EGD was done by Dr. Abreu on 03/03/2018 which showed no AVMs, no signs of active bleeding. PAST MEDICAL HISTORY: COPD on home oxygen 2 to 3 L/minute, type 2 diabetes, morbid obesity, hypertension, history of left lower extremity DVT, anemia, GI bleeding, chronic kidney disease, chronic lymphedema, moderate to severe pulmonary hypertension with PA pressure of 64 to 69 on echocardiogram in February 2018, right-sided heart failure, chronic anemia. PAST SURGICAL HISTORY: Cholecystectomy, tubal ligation, left leg surgery. SOCIAL HISTORY: She smokes more than 3 packs per day and she is smoking more than 30 years. No history of alcohol or illicit drug abuse. FAMILY HISTORY: Siblings with breast cancer, renal cancer. Both parents with history of CVA. ALLERGIES: No known drug allergies. MEDICATIONS IN THE HOSPITAL: Include: Humalog, Tylenol, albuterol/ipratropium, Iron C, potassium chloride, multivitamin, normal saline 70 mL/h, Zofran, Protonix b.i.d., vancomycin IV, Zosyn IV q.8 hours. The patient is currently n.p.o. Denies any current fevers, rigors or chills chest pain, shortness of breath. She does have baseline shortness of breath. She has morbid obesity. She denies any vomiting blood or passing blood in the stools. She denies any black stools. She has a history of arthritis and she has history of heart failure and pulmonary hypertension. She denies any neurologic complaints. PHYSICAL EXAMINATION: Vital Signs: Temperature of 98.9, pulse of 86, respiratory rate 18, blood pressure 106/78, saturating 97% on BiPAP at 40% FiO2. Body weight of 256 pounds 9 ounces. BMI of 46.9 kg/m2. General: Morbidly obese, lying in bed. Currently on BiPAP. HEENT: Positive pallor. No icterus. Positive BiPAP mask. Neck: Supple. Abdomen: Morbidly obese. Soft, nondistended. No guarding or rebound. Extremities: Bilateral lower extremity edema and erythema noted in the lower extremities suggesting cellulitis. Neurologic: She is awake, alert. Answers questions. She did not have a good conversation as she is on a BiPAP face mask. LABS: Hemoglobin and hematocrit is 7 and 24.1, white count 3.05, platelet count of 106,000. INR 0.92, PT of 13.1, PTT of 37.6. ABG: pH of 7.28, PCO2 of 61, PO2 103, bicarb of 26.1, lactate of 0.4. Sodium 139, potassium 3.3, chloride 100, bicarb of 27, anion gap of 12, BUN of 32, creatinine of 2.4, glucose of 84, calcium 7.9, phosphorus 5.6, iron level of 66, percent saturation 25%. AST 19, ALT 27, alkaline phosphatase is 88. Total protein 5.8, albumin of 2.4, total bilirubin is 0.2. B12 of 563, folate of 10.8, lactate of 1.8. Urinalysis showing positive protein and small white and red cells. Blood cultures are currently drawn. They are pending. Chest x-ray done today showed left-sided consolidation. Head CT done showed no evidence of acute disease. IMPRESSION AND PLAN: 1. Anemia. 2. Negative fecal occult. 3. Respiratory failure. 4. Chronic obstructive pulmonary disease. 5. Morbid obesity. 6. Cellulitis lower extremity. 7. Diabetes. 8. Right-sided heart failure. 9. Pulmonary hypertension. 10. Renal failure. RECOMMENDATIONS: 1. We will continue to watch patient's hematocrit, type and cross, and transfuse to keep hematocrit more than 20 and transfuse as needed. 2. Patient needs a hematological workup as to rule out any evidence of bone marrow suppression. She does not have any signs of active GI bleeding. She had a recent EGD done a few months ago which was negative. For now we will keep her on GI prophylaxis with PPIs. We will keep her on a bowel regimen to prevent constipation. I will keep her on Iron C b.i.d. and multivitamins daily. Then once stabilized she will probably need outpatient colonoscopy. The above plans discussed with the patient and the nursing staff and all questions answered. Please call with any further questions. cc: MD Wallace Crawford Jr, MD
--- NOTE | 2018-08-13 20:00 | PULMONOLOGY CONSULTATION ---
DATE: 08/13/2018 REQUESTING PHYSICIAN: Dr. Wallace Meyer. REASON FOR CONSULTATION: Respiratory failure. HISTORY OF PRESENT ILLNESS: Ms. Ndiaye is a 67-year-old white female with COPD, ongoing tobacco use, morbid obesity, chronic renal insufficiency, who was admitted to the hospital from 07/16/2018 to 07/24/2018 with COPD exacerbation, confusion, and pneumonia/areas of consolidation. The patient was counseled extensively about the need to discontinue tobacco. She was encouraged to follow up. She was to continue outpatient antibiotics and to follow up with Dr. Meyer with a CT scan in three weeks. The patient continued to smoke and presented to the emergency room with increased lower extremity swelling. Arterial blood gas revealed acute hypercapnic respiratory failure with a pH of 7.30, pCO2 of 61, pO2 of 67, on 2 L per nasal cannula. D dimer was minimally elevated at 1.02. She did undergo a VQ scan today, which was low probability, primarily due to decreased ventilation in the left chest due to her cardiomegaly. The patient had an echocardiogram which revealed good LV function with evidence of right ventricular enlargement with moderate pulmonary hypertension. She is currently being maintained on BiPAP. PAST MEDICAL HISTORY/PROBLEM LIST: 1. Morbid obesity a BMI of 47. 2. COPD with ongoing tobacco use. 3. Areas of consolidation on recent CT scan, pending follow up. 4. Diabetes mellitus. 5. Hypertension. 6. Chronic hypoxemic respiratory failure with noncompliance while smoking. 7. History of deep vein thrombosis. 8. Chronic lymphedema. 9. Morbid obesity. 10.Status post cholecystectomy. 11.Moderate to severe pulmonary hypertension. SOCIAL HISTORY: Ongoing tobacco use, as per above. No alcohol use listed. FAMILY HISTORY: Positive for renal cancer, breast cancer, and stroke. REVIEW OF SYSTEMS: Is limited. The patient will wake up and will answer a single question and then drifts back to sleep. PHYSICAL EXAMINATION: General: Physical exam reveals a morbidly obese white female, on BiPAP ventilation. Vital Signs: Blood pressure 121/60, heart rate 94, respiratory rate 26, oxygen saturation 94% HEENT: The pupils are equal and reactive. The oropharynx is clear but evaluation is limited with BiPAP in place. Neck: Supple. Chest: Reveals markedly diminished breath sounds bilaterally. Cardiac exam: S1, S2, distant heart sounds. Abdomen: Obese and soft with good bowel sounds. Extremities: Reveal chronic venous insufficiency. LABORATORIES: Arterial blood gas this morning, pH 7.28, pCO2 of 61, pO2 of 103. Chemistries: Sodium 139, potassium 3.3, chloride 100, bicarbonate 27, BUN 32, creatinine 2.4. IMAGING: Chest x-ray reveals some areas of consolidation on the left, which appear less dense than on prior study. IMPRESSION: A 67 year old with chronic obstructive pulmonary disease exacerbation, chronic hypoxemic respiratory failure, acute hypercapnic respiratory failure, pulmonary hypertension, abnormal CT scan of the thorax, ongoing tobacco use, acute renal failure. RECOMMENDATIONS: 1. Continue BiPAP through the evening with followup arterial blood gas tomorrow morning. 2. Continue bronchodilators. 3. Continue current antibiotic as outlined by Dr. Sumit Polanco. 4. Encourage smoking cessation. 5. Initiate DVT prophylaxis. 6. Follow up noncontrast CT scan tomorrow. cc: MD Wallace Lowe Jr, MD
[2018-08-13] MEDS: LOVENOX SUBQ SCH (21:20)
[2018-08-13] MEDS: ICAR-C PO SCH ×2 (21:20→21:23)
--- NOTE | 2018-08-13 22:34 | INFECTIOUS DISEASE CONSULT REP ---
DATE: 08/13/2018 CONCLUSION: The patient has bilateral leg cellulitis. She also has bilateral tinea pedis, which may be the portal of entry for the patient's leg cellulitis. In addition, she has a left middle lobe and lower lobe opacification, which could be due to pneumonia. RECOMMENDATIONS: I have discontinued vancomycin and Zosyn, and have put the patient instead on ceftaroline. DISCUSSION: The patient was unable to provide a history, and no family members were present. The information I got was from the computer. The patient was admitted to the hospital. She complained of bilateral lower extremity swelling, erythema, and pain. The patient's studies thus far show a CBC, with a white count of 3050, hemoglobin 7, and platelet count 106,000. Creatinine is 2.4. GFR is 20. The blood gases show a pH of 7.28, a PO2 of 103, and a pCO2 of 61. Urinalysis showed no white cells or bacteria. Blood cultures are pending. Lung scan showed no pulmonary emboli. Chest x-ray shows left middle lobe and lower lobe opacification. CT scan of the head shows no acute disease. REVIEW OF SYSTEMS: Unable to obtain from the patient. PAST MEDICAL HISTORY: Positive for COPD, diabetes mellitus, hypertension, left lower extremity deep venous thrombosis, anemia, history of GI tract bleeding, chronic kidney disease, chronic lymphedema, morbid obesity, pulmonary hypertension, hyperlipidemia, and right-sided heart failure. PAST SURGICAL HISTORY: The patient's surgical history is positive for cholecystectomy, tubal ligation, and left leg surgery. SOCIAL HISTORY: The patient smoked cigarettes, but there is no history of alcohol use or illicit drug use. FAMILY HISTORY: Positive for breast cancer, renal cancer, and cerebrovascular accidents. ALLERGIES: The patient has no known drug allergies. HOME MEDICATIONS: Amitriptyline, Symbicort, bumetanide, clonidine, Lexapro, gabapentin, Lantus insulin, Humalog insulin, Levaquin, Ativan, metformin, Prilosec, Zofran, potassium, Crestor, spironolactone, Demadex, and Ultram. PHYSICAL EXAMINATION: Vital Signs: Temperature is 98.9 degrees, pulse 86, respirations 18, blood pressure 106/78. Patient is 5 feet 2 inches tall, and weighs 256 pounds. General: This is an obese, elderly female, who is lethargic. Head, Eyes, Ears, Nose, and Throat: There is no drainage from the nose or the ears. Neck: No meningismus. Thorax: Increased AP diameter of the chest. Lungs: Clear to auscultation. Cardiovascular: Heart rate is sinus rhythm at times, and then other times her heartbeat is irregular. Abdomen: Soft and nontender. Extremities: The patient has bilateral leg edema and erythema, and she has crusting between all toes of both feet. Neurologic: The patient was very lethargic. She did not answer my questions. She did not move her extremities to request. There was no tremor. Thank you for the consult. cc: MD Wallace Serrano Jr, MD
[2018-08-14] MEDS: HUMALOG SUBQ SCH ×6 (01:36→20:18)
[2018-08-14] MEDS: TEFLARO 600 MG in NS 250 ML IV SCH ×2 (01:39→15:00)
[2018-08-14] MEDS: DUONEB (A & A) INH SCH ×6 (03:43→23:22)
[2018-08-14 04:16] LABS: ALLEN TEST YES; BE 0.8 mmoll (-3.0-3.0); BLOOD TYPE ARTERIAL; HCO3-(ACT) 25.5 mmoll (20.0-26.0); METHB 0.4 % (0.0-1.5); O2(CT) 11.9 mL/dL (15.0-23.0); O2HB 92.8 % (95.0-99.0); PO2(98.6) 67 mmHg (60-100); SAMPLE BLOOD; SAO2 94.6 % (95.0-100.0); THB 9.1 g/dL (11.5-17.4); pH(98.6) 7.28 (7.35-7.45)
[2018-08-14 04:26] LABS: MODALITY BI PAP; PCO2(98.6) 60 mmHg (35-45)
[2018-08-14] MEDS: LOTRIMIN 1% CREAM TOP SCH ×2 (05:07→15:00)
[2018-08-14 05:08] LABS: HEMOGLOBIN 9.4 g/dL (12.0-16.0); MCH 24.4 PG (27-31); MCHC 30.3 g/dL (33-37); MCV 80.5 FL (81-99); MPV 10.1 FL (7.4-10.4); RBC 3.85 XMIL (4.2-5.4); RDW 21.7 % (11.5-14.5); WBC 3.81 X1000 (4.8-10.8)
[2018-08-14 05:15] LABS: ALBUMIN 2.5 g/dL (3.5-5.0); CALCIUM 8.1 mg/dL (8.8-10.2); CREATININE 1.9 mg/dL (0.5-0.9); PHOSPHORUS 4.5 mg/dL (2.7-4.5); POTASSIUM 3.5 mmol/L (3.5-5.1)
--- NOTE | 2018-08-14 07:31 | Diag Imaging Result Doc PS360 ---
EXAM: CHEST-PORTABLE INDICATION: respiratory failure TECHNIQUE: One view COMPARISON: 08/13/2018 FINDINGS: Inspiration is suboptimal. Interstitial thickening throughout both lungs has worsened somewhat suggesting mild edema that has worsened. There is increased opacity at the right lung base suggesting developing atelectasis and/or infiltrate. Cardiac silhouette is stable. IMPRESSION: Interval slight worsening as described. Electronically signed by Sigifredo Shi 08/14/2018 7:29 AM
[2018-08-14] MEDS: PROTONIX IV SCH ×3 (08:49→23:08)
[2018-08-14] MEDS: ICAR-C PO SCH ×2 (08:49→20:17)
[2018-08-14] MEDS: CENTRUM SILVER PO SCH (08:49)
[2018-08-14] MEDS: TYLENOL PR PRN (09:58)
--- NOTE | 2018-08-14 10:16 | PROGRESS NOTE ---
DATE: 08/14/2018 SUBJECTIVE: The patient is feeling a little better. She is awake, a little bit confused but is carry on a conversation. She says her breathing is better. OBJECTIVE: Vital Signs: Blood pressure 124/66, respirations 20, pulse 87, temperature is 97.7 degrees Fahrenheit. Oxygen saturation on BiPAP is 96%. HEENT: She is normocephalic. EOMs intact. PERRLA. Throat clear. Lungs: A little dull in the right base. Heart : Regular rate and rhythm without murmurs, gallops, or friction rubs. Abdomen: Soft. Active bowel sounds. No organomegaly or tenderness. Neurologic: Intact grossly except for some confusion. DIAGNOSTIC DATA: Laboratory shows a white count of only 3810, hemoglobin is up to 9.4 after transfusion. It was 7.0 yesterday. ABG shows a pH of 7.28, pCO2 of 60, pO2 of 67 on BiPAP. Creatinine has come down from 2.7 to 2.4, and today is 1.9, Cr 21. The patient does have continued. redness in her lower extremities, with ulceration on the left heel. Blood cultures are no growth. Could find no source of bleeding. May have a bone marrow problem. We will consult Hematology, especially since she has a pancytopenia with platelet count low 110, 000, was 106,000. ASSESSMENT: 1. Right lower lobe pneumonia. 2. Chronic obstructive pulmonary disease exacerbation. 3. Respiratory distress. 4. Morbid obesity. 5. Pancytopenia. 6. Cellulitis of lower extremities. PLAN: We will continue to support with antibiotics. We will consult Hematology. I have again reiterated that she needs to quit smoking. Appreciate all the help from the specialists. cc: MD LUZ Abernathy Jr
--- NOTE | 2018-08-14 14:29 | Extremity Venous Study ---
PROCEDURE NAME: Venous U/S Bilateral Legs - 08/12/2018 PROCEDURE: Bilateral lower extremity venous duplex study. REFERRING PHYSICIAN: Dr. So Payne. READING PHYSICIAN: Dr. Thomas Woo. GENERAL ACCOUNTING CLERK: Tang. INDICATION: History of DVT, elevated D-dimer. FINDINGS: The patient had a large body habitus limiting the study, and she refused a Valsalva. The common femoral, superficial femoral, deep femoral, greater saphenous, popliteal, posterior tibial and peroneal veins were imaged. They are compressible, patent, without thrombus. INTERPRETATION: No obvious DVT or SVT on this study, which does show resolution of a previous thrombus throughout the right common femoral, superficial femoral, popliteal, and saphenous veins that were noted on the left side on 07/05/2015. cc: MD Wallace Vela Jr, MD
--- NOTE | 2018-08-14 16:11 | NEPHROLOGY PROGRESS NOTE ---
DATE: 08/14/2018 SUBJECTIVE: No complaints today. She is lying on her right side. She is alert and talking but did not really answer my questions. OBJECTIVE: Vital Signs: Blood pressure 110/71, heart rate 103, respirations 44, afebrile. General: No acute distress. Respiratory rate was not this high at the time of my exam. HEENT: Oropharynx is dry. Neck: Neck veins are not visible. Heart: Irregular, and heart rate is ranging from 85 to 130. Lungs: Equal breath sounds. No crackles. Abdomen: Obese, soft, nontender. Bowel sounds present. Extremities: 1+ edema. No clubbing or cyanosis. IMPRESSION: Acute kidney injury. Creatinine 1.9 today. Baseline 0.7 as of July 24. Should continue to improve. cc: MD Wallace Truong Jr, MD
--- NOTE | 2018-08-14 16:46 | Diag Imaging Result Doc PS360 ---
EXAM: CT THORAX W/O CONTRAST HISTORY: f/u TECHNIQUE: CT chest without contrast COMPARISON: 07/22/2018 FINDINGS: Interval development of a small right-sided pleural effusion measuring 2.5 cm posteriorly and inferiorly in the midline. Left pleural effusion measuring 1.6 cm is slightly larger than on the prior study. The heart is enlarged. There is vascular distention. Mediastinal nodes are slightly larger on the current study. A calcified right hilar lymph nodes. There are groundglass infiltrates in the upper lungs. IMPRESSION: Cardiomegaly with pulmonary edema and small pleural effusions with groundglass infiltrates This exam was performed using automated exposure control, adjustment of mA or kV according to patient size, and/or use of iterative reconstruction technique. Electronically signed by Frederic Lynn 08/14/2018 4:44 PM
[2018-08-14] MEDS: LASIX IV SCH (17:29)
--- NOTE | 2018-08-14 18:06 | PROGRESS NOTE ---
DATE: 08/14/2018 SUBJECTIVE: Patient resting in bed. She is in a BiPAP face mask. She was able to answer some of my questions. She denies any active bleeding. She denies any abdominal pain. OBJECTIVE: Vital signs: Temperature of. 97.3, pulse rate of 97, respiratory 24 , blood pressure 127/80 saturating, 92% on 50% BiPAP. General: She is morbidly obese. Lying in bed. On a BiPAP mask. HEENT: Pale conjunctivae. No icterus. Face mask in place. Neck : Supple. Abdomen: Obese, soft, nondistended. Extremities: Bilateral lower extremity cellulitis. Neurologic: She is awake and answers questions. LABORATORY DATA: Her hemoglobin and hematocrit is 9.4 and 31, white count of 3.81, platelet count of 110,000. Her ABG showing pH 7.28, pCO2 60, PO2 67. This is on BiPAP 50% FiO2. Sodium 140, potassium 3.5, chloride 103, bicarb 25, anion gap 15, BUN of 21, creatinine 1.9 , glucose of 133, calcium 8.5, phosphorus 4.5. Iron studies show percent saturation of 25%. Albumin of 2.5. Occult blood was negative and blood culture negative at 48 hours. Chest x-ray done today showed interval slight worsening. Interstitial thickening throughout both lungs worsened. Increased opacity in the right lung base suggesting atelectasis or infiltrate. IMPRESSION AND PLAN: 1. Anemia. Negative Hemoccult. We will continue watch the hematocrit. 2. The patient had recent EGD which was done a few months ago which was negative. No plans for any endoscopic intervention at this time. We may have to exclude bone marrow pathology or other hematological disorders. 3. Right lower lobe pneumonia. She is on antibiotics. 4. Chronic obstructive pulmonary disease exacerbation. She is on oxygen support and BiPAP support. 5. Morbid obesity. Aware. 6. Pancytopenia. Hematology was consulted. 7. Cellulitis lower extremities. She is on antibiotics. 8. Gastrointestinal prophylaxis. Proton pump inhibitors. 9. Deep vein thrombosis prophylaxis with Lovenox. The above plan discussed with the patient's nurse and patient. All questions answered. We will be here if needed. Please call us with any further questions. cc: MD Wallace Crawford Jr, MD MTDD
[2018-08-14] MEDS: LOVENOX SUBQ SCH (20:17)
[2018-08-15] MEDS: TEFLARO 600 MG in NS 250 ML IV SCH ×2 (02:37→14:45)
[2018-08-15] MEDS: LOTRIMIN 1% CREAM TOP SCH ×2 (02:38→14:04)
[2018-08-15] MEDS: HUMALOG SUBQ SCH ×6 (02:39→21:03)
[2018-08-15] MEDS: DUONEB (A & A) INH SCH ×6 (03:44→23:22)
[2018-08-15 04:55] LABS: BASO# 0.01 X1000 (0.0-0.2); BASO% 0.2 % (0.0-0.8); EOS# 0.05 X1000 (0.0-0.7); EOS% 0.9 % (0.0-10.0); HEMATOCRIT 32.6 % (37.0-47.0); HEMOGLOBIN 9.9 g/dL (12.0-16.0); IMM GRAN# 0.11 X1000 (0.0-0.04); LYMPH# 0.51 X1000 (1.2-3.4); MCH 24.2 PG (27-31); MCHC 30.4 g/dL (33-37); MCV 79.7 FL (81-99); MONO% 12.4 % (1.7-9.3); MPV 10.6 FL (7.4-10.4); NEUT# 4.26 X1000 (1.4-6.5); NEUT% 75.5 % (42.2-75.2); PLT 133 X1000 (130-400); RBC 4.09 XMIL (4.2-5.4); RDW 21.1 % (11.5-14.5); WBC 5.64 X1000 (4.8-10.8)
[2018-08-15 05:24] LABS: ALBUMIN 2.6 g/dL (3.5-5.0); CALCIUM 8.7 mg/dL (8.8-10.2); CREATININE 1.6 mg/dL (0.5-0.9); PHOSPHORUS 3.7 mg/dL (2.7-4.5); POTASSIUM 3.1 mmol/L (3.5-5.1)
[2018-08-15 05:24] LABS: ALLEN TEST YES; BE 2.2 mmoll (-3.0-3.0); BLOOD TYPE ARTERIAL; HCO3-(ACT) 26.5 mmoll (20.0-26.0); METHB 0.7 % (0.0-1.5); O2(CT) 16.9 mL/dL (15.0-23.0); O2HB 92.2 % (95.0-99.0); PO2(98.6) 66 mmHg (60-100); SAMPLE BLOOD; SAO2 94.3 % (95.0-100.0); pH(98.6) 7.34 (7.35-7.45)
[2018-08-15 05:26] LABS: MODALITY BI PAP
[2018-08-15 05:27] LABS: PCO2(98.6) 54 mmHg (35-45)
--- NOTE | 2018-08-15 07:12 | Diag Imaging Result Doc PS360 ---
CHEST-PORTABLE - 08/15/2018 INDICATION: respiratory failure COMPARISON: 08/14/2018 FINDINGS: Stable severe cardiomegaly and pulmonary vascular congestion. Lung volumes are improved. There is decrease in the patchy right basilar infiltrate/atelectasis. Stable background interstitial pulmonary edema. IMPRESSION: Improved lung volumes with slight improvement in right basilar atelectasis. Otherwise no change. Electronically signed by Shayan Erwin 08/15/2018 7:10 AM
[2018-08-15] MEDS: PROTONIX IV SCH ×3 (07:38→21:00)
[2018-08-15] MEDS: CENTRUM SILVER PO SCH ×2 (07:38→10:13)
[2018-08-15] MEDS: LASIX IV SCH ×2 (07:38→10:13)
[2018-08-15] MEDS: ICAR-C PO SCH ×3 (07:38→21:01)
--- NOTE | 2018-08-15 09:33 | PROGRESS NOTE ---
DATE: 08/15/2018 SUBJECTIVE: Vital signs stable with temperature 98, heart rate 103, respirations 27, O2 saturation 96% on BiPAP. The patient is a 67-year-old, morbidly obese white female with right lower lobe pneumonia, respiratory failure, morbid obesity, cellulitis of both lower extremities including the left heel. Dr. Mir and Dr. Polanco are involved in her care. LABORATORY REPORTS: Hemoglobin 9.9, hematocrit 32.6, white blood count 5600. Sodium 143, potassium 3.1. BUN 16, and creatinine 1.6. Glucose 145, calcium 8.7. The patient is taking very little p.o. IMAGING REPORTS: Chest x-ray showed improvement bilaterally. There are improved lung volumes. CULTURES: Blood cultures have revealed no growth at 48 hours. MEDICATIONS: She is on insulin per protocol q. 4 hours. Antibiotics included ceftaroline, fosamil 600 mg q. 12 hours. Clostridium ointment is being applied to lower extremities. She is on Lovenox. PLAN: Add IV potassium. Continue BiPAP and supportive care. cc: MD Wallace Hollingsworth Jr, MD
[2018-08-15] MEDS ORDERED: VANCOMYCIN 1,700 MG in NS 250 ML IV SCH (10:00)
[2018-08-15] MEDS: SANTYL OINT TOP SCH (10:14)
[2018-08-15] MEDS: POTASSIUM CHLORIDE 20 MEQ/SWI 20 MEQ/100 ML IVPB IV SCH ×2 (10:14→12:12)
--- NOTE | 2018-08-15 19:13 | INFECTIOUS DISEASE PROGRESS NO ---
DATE: 08/15/2018 PRESENT ILLNESS: The patient has bilateral leg cellulitis. She also has a right lower lobe infiltrate versus atelectasis and pulmonary venous congestion. MEDICATIONS: The patient is receiving ceftaroline. PHYSICAL EXAMINATION: Temperature is 98 degrees, pulse 116, respirations 13, blood pressure is 113/71. General: This patient is an obese elderly female. She seems to be somewhat dyspneic even at rest on the bed. Head/eyes/ears/nose/throat: There is no drainage from the nose or ears. She has a BiPAP mask on at this time. Neck: No stiffness. Lungs: Clear to auscultation. Cardiovascular: Heart rate is irregular. Abdomen: Soft and nontender. The patient's legs are edematous but they are less erythematous than they were when she came in the hospital. Neurologic: The patient appeared to be lethargic. She did not follow request to move her extremities. There was no tremor. LAB AND X-RAY: Chest x-ray shows pulmonary venous congestion and a decrease in the right lower lobe infiltrate/atelectasis. Blood cultures are negative. Creatinine is 1.6. GFR is 32. Blood gases show a pH of 7.34, pO2 of 66 and a pCO2 of 54. The CBC shows a white count of 5640, hemoglobin 9.9 and platelet count 133,000. ASSESSMENT AND PLAN: Patient has leg cellulitis and pulmonary infiltrates which could be due to pneumonia. My plan is to continue ceftaroline and also order a procalcitonin level. COMORBIDITIES: She has COPD, diabetes mellitus and chronic leg edema. She also has chronic kidney disease. The patient also is very obese. cc: MD Wallace Serrano Jr, MD
[2018-08-15] MEDS: LOVENOX SUBQ SCH (20:59)
[2018-08-15] MEDS ORDERED: LANOXIN IV ONE ×3 (21:34→23:50)
[2018-08-16] MEDS: TEFLARO 600 MG in NS 250 ML IV SCH ×2 (01:33→14:35)
[2018-08-16] MEDS: LOTRIMIN 1% CREAM TOP SCH ×2 (01:33→14:35)
[2018-08-16] MEDS: HUMALOG SUBQ SCH ×6 (01:51→22:03)
[2018-08-16] MEDS ORDERED: LANOXIN IV ONE (02:00)
[2018-08-16] MEDS: DUONEB (A & A) INH SCH ×6 (03:23→23:17)
[2018-08-16 04:56] LABS: ALBUMIN 2.5 g/dL (3.5-5.0); CALCIUM 8.6 mg/dL (8.8-10.2); CREATININE 1.3 mg/dL (0.5-0.9); PHOSPHORUS 2.1 mg/dL (2.7-4.5); POTASSIUM 2.6 mmol/L (3.5-5.1)
[2018-08-16 04:57] LABS: ALLEN TEST YES; BE 7.1 mmoll (-3.0-3.0); BLOOD TYPE ARTERIAL; HCO3-(ACT) 30.4 mmoll (20.0-26.0); O2(CT) 15.1 mL/dL (15.0-23.0); O2HB 94.9 % (95.0-99.0); PCO2(98.6) 42 mmHg (35-45); PO2(98.6) 69 mmHg (60-100); SAMPLE BLOOD; SAO2 97.2 % (95.0-100.0); THB 11.3 g/dL (11.5-17.4); pH(98.6) 7.48 (7.35-7.45)
[2018-08-16 05:00] LABS: MODALITY CANNULA
[2018-08-16] MEDS: CARDIZEM 100 MG in NS 80 ML IV SCH ×3 (06:35→22:30)
--- NOTE | 2018-08-16 07:33 | Diag Imaging Result Doc PS360 ---
CHEST-PORTABLE - 08/16/2018 INDICATION: respiratory failure COMPARISON: 08/15/2018 FINDINGS: Stable cardiomegaly and pulmonary vascular congestion. Stable hazy interstitial pulmonary edema. No large infiltrates or pleural effusion. IMPRESSION: No change from prior. Electronically signed by Shayan Erwin 08/16/2018 7:31 AM
[2018-08-16] MEDS ORDERED: ALBUMIN 25% IV ONE (08:10)
[2018-08-16] MEDS: CENTRUM SILVER PO SCH ×2 (08:32→08:48)
[2018-08-16] MEDS: ICAR-C PO SCH ×3 (08:32→22:00)
[2018-08-16] MEDS: SANTYL OINT TOP SCH (08:32)
[2018-08-16] MEDS: LASIX IV SCH (08:32)
--- NOTE | 2018-08-16 08:46 | PROGRESS NOTE ---
DATE: 08/16/2018 VITAL SIGNS: Temperature 98, heart rate 121, respirations 24, O2 saturation 92 on 4 L nasal oxygen. Blood pressure 170/100. SUBJECTIVE: The patient is moaning but responds occasionally in appropriate manner with simple yes and no answers. She denies hurting but feels weak and bad in general. OBJECTIVE: Chest x-ray is basically unchanged this morning with persistent cardiomegaly, pulmonary vascular congestion, and interstitial pulmonary edema. There are no large infiltrates or pleural effusion. Laboratory, sodium 144, potassium 2.6, BUN 12, creatinine 1.3, glucose 123, calcium 8.6, phosphorus 2.1, albumin 2.5. Abdomen soft. Legs, pretibial erythema with cellulitis of the left ankle. PLAN: Continue current therapy plus addition of potassium. cc: MD Wallace Hollingsworth Jr, MD
[2018-08-16] MEDS: POTASSIUM CHLORIDE 20 MEQ/SWI 20 MEQ/100 ML IVPB IV SCH ×2 (08:57→09:33)
[2018-08-16] MEDS ORDERED: POTASSIUM CHLORIDE 20 MEQ/SWI 20 MEQ/100 ML IVPB IV SCH (09:00)
[2018-08-16 09:16] LABS: BASO# 0.06 X1000 (0.0-0.2); BASO% 1.1 % (0.0-0.8); EOS# 0.06 X1000 (0.0-0.7); EOS% 1.1 % (0.0-10.0); HEMATOCRIT 37.8 % (37.0-47.0); HEMOGLOBIN 11.6 g/dL (12.0-16.0); IMM GRAN% 1.9 % (0.0-0.5); LYMPH# 0.81 X1000 (1.2-3.4); LYMPH% 15.3 % (20.5-51.1); MCH 24.5 PG (27-31); MCHC 30.7 g/dL (33-37); MCV 79.9 FL (81-99); MONO# 1.04 X1000 (0.11-0.59); MONO% 19.6 % (1.7-9.3); NEUT# 3.23 X1000 (1.4-6.5); PLT 140 X1000 (130-400); RBC 4.73 XMIL (4.2-5.4); RDW 21.9 % (11.5-14.5)
[2018-08-16] MEDS: PROTONIX IV SCH ×2 (09:33→22:16)
[2018-08-16] MEDS: ZOFRAN IV PRN (09:33)
[2018-08-16] MEDS: DEMEROL IV PRN (10:17)
--- NOTE | 2018-08-16 12:13 | INFECTIOUS DISEASE PROGRESS NO ---
DATE: 08/16/2018 PRESENT ILLNESS: Patient has bilateral leg cellulitis. She also has pulmonary venous congestion with a possible pneumonia. Today, she has a somewhat altered mental status. MEDICATIONS: This is the third day of treatment with ceftaroline. PHYSICAL EXAMINATION: Vital Signs: Temperature is 98 degrees, pulse 132, respirations 19, blood pressure 150/74. The patient's weight is 241 pounds. General: This is an obese, elderly female. She is in no acute distress. Head, eyes, ears, nose, and throat: There is no drainage from the nose or ears. She did not respond to verbal stimuli. Neck: No stiffness. Lungs: Clear to auscultation. Cardiovascular: Heart rate was regular. Abdomen: Soft and not tender. Neurologic: The patient appeared to be in a delirium. She did not respond to verbal stimuli. There was no tremor. LABORATORY AND X-RAY: Creatinine is 1.3. GFR is 41. CBC shows a white count of 5300, hemoglobin 11.6, and platelet count 140,000. Blood gases showed a pH of 7.48, a PO2 of 69, and a pCO2 of 42. Chest x-ray shows bilateral congestion. ASSESSMENT AND PLAN: 1. Patient has leg cellulitis and pulmonary infiltrates, which could be due to pneumonia, as well as pulmonary venous congestion. The patient also today has an altered mental status. I am waiting for the procalcitonin level to return. 2. Comorbidities: COPD, diabetes mellitus, chronic leg edema. End-stage renal disease, and obesity. cc: MD Wallace Serrano Jr, MD
[2018-08-16] MEDS: HALDOL IV PRN (13:08)
[2018-08-16 13:10] LABS: INR 1.02; PROTIME 14.2 Seconds (11.0-16.0)
[2018-08-16] MEDS ORDERED: NS 250 ML ONE (13:59)
[2018-08-16] MEDS ORDERED: POTASSIUM CHLORIDE 40 MEQ in NS 250 ML IV ONE (16:00)
[2018-08-16] MEDS ORDERED: BLISTEX MEDICATED BERRY LIP BALM TOP PRN (16:23)
[2018-08-16] MEDS: LOVENOX SUBQ SCH (22:00)
[2018-08-17] MEDS: HUMALOG SUBQ SCH ×6 (01:14→20:21)
[2018-08-17] MEDS: TEFLARO 600 MG in NS 250 ML IV SCH ×2 (02:59→14:08)
[2018-08-17] MEDS: LOTRIMIN 1% CREAM TOP SCH ×2 (02:59→14:08)
[2018-08-17] MEDS: DUONEB (A & A) INH SCH ×6 (03:23→23:13)
[2018-08-17 04:27] LABS: ALLEN TEST YES; BE 10.5 mmoll (-3.0-3.0); BLOOD TYPE ARTERIAL; METHB 0.7 % (0.0-1.5); O2(CT) 13.2 mL/dL (15.0-23.0); O2HB 91.9 % (95.0-99.0); PO2(98.6) 64 mmHg (60-100); SAMPLE BLOOD; SAO2 94.1 % (95.0-100.0); THB 10.2 g/dL (11.5-17.4); pH(98.6) 7.41 (7.35-7.45)
[2018-08-17 04:29] LABS: MODALITY VENTIMASK; PCO2(98.6) 58 mmHg (35-45)
[2018-08-17 04:31] LABS: HEMATOCRIT 32.7 % (37.0-47.0); HEMOGLOBIN 9.7 g/dL (12.0-16.0); MCH 24.2 PG (27-31); MCHC 29.7 g/dL (33-37); MCV 81.5 FL (81-99); MPV 10.2 FL (7.4-10.4); RBC 4.01 XMIL (4.2-5.4); RDW 21.2 % (11.5-14.5); WBC 4.1 X1000 (4.8-10.8)
[2018-08-17 04:44] LABS: CALCIUM 8.4 mg/dL (8.8-10.2); CREATININE 1.2 mg/dL (0.5-0.9); POTASSIUM 2.8 mmol/L (3.5-5.1)
[2018-08-17] MEDS ORDERED: SODIUM PHOSPHATE 20 MMOL in NS 250 ML IV ONE (05:27)
--- NOTE | 2018-08-17 06:56 | Diag Imaging Result Doc PS360 ---
CT HEAD W/O CONTRAST - 08/17/2018 INDICATION: unequal pupils COMPARISON: 08/12/2018 FINDINGS: The ventricles and sulci are normal in size and contour. No intracranial mass or hemorrhage. The skull is intact. The sinuses mastoids and middle ears are clear. IMPRESSION: Negative exam. This exam was performed using automated exposure control, adjustment of mA or kV according to patient size, and/or use of iterative reconstruction technique Electronically signed by Shayan Erwin 08/17/2018 6:54 AM
--- NOTE | 2018-08-17 07:01 | Diag Imaging Result Doc PS360 ---
CHEST-PORTABLE - 08/17/2018 INDICATION: respiratory failure COMPARISON: 08/16/2018 FINDINGS: Stable significantly low lung volumes. Stable cardiomegaly and pulmonary vascular congestion. There may be some collapse of the left lower lobe. Otherwise no significant infiltrates or pleural effusions. There is a new right PICC line in good position with the catheter tip at the mid SVC. IMPRESSION: New PICC line in good position. Little change from prior. Electronically signed by Shayan Erwin 08/17/2018 6:58 AM
[2018-08-17] MEDS: CENTRUM SILVER PO SCH (08:36)
[2018-08-17] MEDS: SANTYL OINT TOP SCH (08:37)
[2018-08-17] MEDS: ICAR-C PO SCH ×2 (08:37→20:39)
[2018-08-17] MEDS: CARDIZEM 100 MG in NS 80 ML IV SCH ×2 (08:39→20:41)
[2018-08-17] MEDS ORDERED: POTASSIUM CHLORIDE 80 MEQ in NS 500 ML IV ONE ×2 (09:00→14:00)
[2018-08-17] MEDS: PROTONIX IV SCH ×2 (09:16→21:25)
--- NOTE | 2018-08-17 10:39 | PROGRESS NOTE ---
DATE: 08/17/2018 SUBJECTIVE: A 67-year-old obese white female patient of Dr. Meyer admitted to the hospital on 08/12/2018 with altered mental status, bilateral leg swelling due to diastolic heart failure associated with cellulitis. Interval history was reviewed. Patient is obtunded , restrained, not eating well. PAST MEDICAL HISTORY: Reviewed. PAST SURGICAL HISTORY: Reviewed. MEDICINES: Reviewed. ALLERGIES: Not known. REVIEW OF SYSTEMS: Not able to obtain, she is moaning and restrained with confusion. OBJECTIVE: Vital signs: On examination, she is a little bit tachycardic. Respirations 22, blood pressure is 140/93, pulse oximetry 95%. HEENT: She is on Ventimask and poor air entry. Heart: Sounds are very distant. Abdomen: Belly is soft, nontender. Decreased edema as well as redness. PICC line on the right side. She was restrained. INPUT AND OUTPUT: Negative since 08/15, close to 9 L. INVESTIGATIONS: CBC: White cell count 4.1, hematocrit 32, platelets 173,000. ABG: PH is 7.41, pCO2 58, PO2 64 on 50% Ventimask. SMA7: Sodium 143, potassium 2.8, chloride 94, BUN 9, creatinine 1.2, glucose 145, albumin 3. Blood cultures were negative. Stool for occult blood is negative. ASSESSMENT AND PLAN: 1. A 67-year-old white female admitted to the hospital with altered mental status due to Pickwickian syndrome and hypercarbia on 50% Ventimask, stable. 2. Bilateral leg cellulitis due to stasis and dependent edema. Currently on IV ceftaroline 600 mg q.12 since 08/13. 3. Chronic kidney disease. Creatinine 1.9, stable. 4. Deep vein thrombosis prophylaxis with Lovenox 30 mg subcuticular q.24 hours. 5. GI prophylaxis with IV Protonix. 6. Left lower lobe infiltrate. She is on IV antibiotics. 7. History of cor pulmonale, COPD on oxygen. 8. Type 2 diabetes. Currently on insulin, Humalog protocol. 9. Hypokalemia, not on diuretics. Excellent diuresis after improve the oxygenation, replace the potassium and check the labs in the morning. 10. Nutrition will assess. Plan to do an NG tube and PICC line on the right side. 11. History of left lower extremity DVT. Continue on Lovenox. 12. History of gastrointestinal bleeding. Stool cultures are negative. 13. Right-sided heart failure due to COPD. Optimize the treatment for COPD and will follow up. LEVEL OF DOCUMENTATION: 35 minutes. cc: MD Wallace Hinojosa Jr, MD MTDD
[2018-08-17] MEDS: HALDOL IV PRN ×2 (10:50→16:39)
--- NOTE | 2018-08-17 11:59 | Diag Imaging Result Doc PS360 ---
CHEST/ABD TUBE PLACEMENT - 08/17/2018 11:00 AM INDICATION: ng tube placement COMPARISON: 5:42 AM FINDINGS: There is a nasogastric tube in good position in the stomach. IMPRESSION: Nasogastric tube in good position in the stomach. Electronically signed by Shayan Erwin 08/17/2018 11:57 AM
--- NOTE | 2018-08-17 13:14 | CARDIOLOGY PROGRESS NOTE ---
DATE: 08/17/2018 CHIEF COMPLAINT: Dyspnea, respiratory failure, confusion. SUBJECTIVE: Today, Mrs. Ndiaye is nonverbal. She is just growling and moaning. Apparently, she has been more agitated since they put an NG tube, and they had to give her some Haldol. OBJECTIVE: Vital signs: Pulse is 78, temperature 97.4, respirations 21, blood pressure 145/89. General: She does not really verbalize any words. She seems to be somewhat lethargic, very confused. Chest: Diminished breath sounds at the bases. Cardiac: Heart sounds appear to be irregularly irregular. Abdomen: Obese. Extremities: Showed 1+ to 2+ brawny edema. Neurological: Appears to be really very confused. BLOOD WORK: Her blood gases today: pH 7.41, pCO2 of 58, pO2 of 64 on a 50% Ventimask. Hemoglobin 9.7, hematocrit 81.5. Sodium 143, potassium 2.8, BUN 9, creatinine 1.2, chloride 94, carbon dioxide 32. IMAGING: A chest x-ray done today shows new PICC line in good position, little change from prior with low lung volumes, stable cardiomegaly and pulmonary vascular congestion. Head CT done today shows no evidence of any obvious lesion. IMPRESSION: 1. Patient who has persistent atrial fibrillation. 2. Advanced chronic obstructive pulmonary disease, respiratory failure. 3. Obesity. 4. Left lower extremity deep vein thrombosis. 5. Hypertension. 6. Diabetes mellitus type 2. RECOMMENDATION: At this time, I would suggest to continue Cardizem, use digoxin as needed to control the heart rate. Will follow hospital course. Prognosis is quite guarded, given her significant general impairment. cc: MD Wallace Mercado Jr, MD
--- NOTE | 2018-08-17 17:57 | INFECTIOUS DISEASE PROGRESS NO ---
DATE: 08/17/2018 PRESENT ILLNESS: Patient has bilateral leg cellulitis which has improved. She has pulmonary venous congestion and possible pneumonia. She also has an altered mental status. MEDICATIONS: This is the 4th day of treatment with ceftaroline. PHYSICAL EXAMINATION: Vital Signs: Temperature is 97.6 degrees, pulse 88, respirations 26, blood pressure 151/85. General: This is an obese, elderly female. She appears to be in a delirium. Head/eyes/ears/nose/throat: No drainage from the nose or ears. Neck: No stiffness. Lungs: Clear to auscultation. Cardiovascular: Heart rate was irregular. Abdomen: Soft and not tender. Neurologic: Patient is in a delirium. She did not respond to verbal stimuli. She does not have a tremor. LAB AND X-RAY: CT scan of the head showed no abnormalities. Blood gases showed a pH of 7.41, a pO2 of 64 and a pCO2 of 58. Creatinine is 1.2. GFR is 45. CBC shows a white count of 4100, hemoglobin 9.7, and platelet count 173,000. ASSESSMENT AND PLAN: Patient has leg cellulitis and pulmonary infiltrates which could be due to pneumonia as well as pulmonary venous congestion. The patient also has an altered mental status. My plan is to continue ceftaroline and I am waiting for the result of the procalcitonin level. COMORBIDITIES: Include COPD, diabetes mellitus, chronic leg edema, end-stage renal disease and obesity. cc: MD Wallace Serrano Jr, MD
[2018-08-17] MEDS: DEMEROL IV PRN (18:34)
[2018-08-17] MEDS: ATIVAN PO SCH (20:38)
[2018-08-17] MEDS: ULTRAM PO PRN (20:38)
[2018-08-17] MEDS: NEURONTIN PO SCH (20:38)
[2018-08-17] MEDS: ELAVIL PO SCH (20:38)
[2018-08-17] MEDS: LOVENOX SUBQ SCH (20:38)
[2018-08-17] MEDS: LEXAPRO PO SCH (20:38)
[2018-08-17] MEDS: SODIUM CHLORIDE 0.9% INJ SCH (21:25)
[2018-08-18] MEDS: TEFLARO 600 MG in NS 250 ML IV SCH ×2 (01:17→14:49)
[2018-08-18] MEDS: LOTRIMIN 1% CREAM TOP SCH ×2 (01:17→14:49)
[2018-08-18] MEDS: HUMALOG SUBQ SCH ×6 (01:18→22:07)
[2018-08-18] MEDS: DUONEB (A & A) INH SCH ×6 (03:26→23:30)
[2018-08-18 04:30] LABS: ALLEN TEST YES; BE 6.5 mmoll (-3.0-3.0); BLOOD TYPE ARTERIAL; METHB 0.2 % (0.0-1.5); O2(CT) 13.8 mL/dL (15.0-23.0); PO2(98.6) 94 mmHg (60-100); SAMPLE BLOOD; SAO2 97.7 % (95.0-100.0); THB 10.1 g/dL (11.5-17.4); pH(98.6) 7.37 (7.35-7.45)
[2018-08-18 04:32] LABS: MODALITY VENTIMASK; PCO2(98.6) 57 mmHg (35-45)
[2018-08-18] MEDS ORDERED: ATIVAN PO PRN (04:46)
[2018-08-18] MEDS: ATIVAN PO SCH (04:47)
[2018-08-18] MEDS: NEURONTIN PO SCH ×3 (05:32→22:06)
[2018-08-18 05:42] LABS: HEMATOCRIT 32.2 % (37.0-47.0); HEMOGLOBIN 9.5 g/dL (12.0-16.0); MCH 24.6 PG (27-31); MCHC 29.5 g/dL (33-37); MCV 83.4 FL (81-99); MPV 10.4 FL (7.4-10.4); RBC 3.86 XMIL (4.2-5.4); RDW 21.5 % (11.5-14.5); WBC 3.73 X1000 (4.8-10.8)
[2018-08-18 05:56] LABS: ALBUMIN 2.7 g/dL (3.5-5.0); CALCIUM 8.4 mg/dL (8.8-10.2); CREATININE 1.1 mg/dL (0.5-0.9); PHOSPHORUS 2.9 mg/dL (2.7-4.5); POTASSIUM 3.8 mmol/L (3.5-5.1)
[2018-08-18] MEDS: MAG-OX PO SCH ×3 (06:39→17:46)
--- NOTE | 2018-08-18 07:21 | Diag Imaging Result Doc PS360 ---
CHEST-PORTABLE - 08/18/2018 INDICATION: respiratory failure COMPARISON: 08/17/2018 FINDINGS: Stable nasogastric tube and right PICC line in good position. Stable cardiomegaly and severe pulmonary vascular congestion. No infiltrates or large effusions. IMPRESSION: No change from prior. Electronically signed by Shayan Erwin 08/18/2018 7:18 AM
[2018-08-18] MEDS: SANTYL OINT TOP SCH (08:51)
[2018-08-18] MEDS: ICAR-C PO SCH ×2 (08:55→22:06)
[2018-08-18] MEDS: CENTRUM SILVER PO SCH (08:55)
[2018-08-18] MEDS: LEXAPRO PO SCH (08:55)
[2018-08-18] MEDS: CARDIZEM 100 MG in NS 80 ML IV SCH (08:57)
[2018-08-18] MEDS: PROTONIX IV SCH ×2 (09:12→22:07)
--- NOTE | 2018-08-18 09:25 | INFECTIOUS DISEASE PROGRESS NO ---
DATE: 08/18/2018 PRESENT ILLNESS: The patient has bilateral leg cellulitis. She also had pulmonary venous congestion and possible pneumonia. The patient continues with a decreased level of consciousness, but it should be noted she is receiving sedation, so most likely that is the reason for her decreased mental acuity. MEDICATIONS: The patient is on day 5 of treatment with ceftaroline. PHYSICAL EXAMINATION: Vital Signs: Temperature is 99.2 degrees, pulse 79, respirations 18, blood pressure 141/79. General: This is an obese, elderly female. She is not arousable. HEENT: She has a BiPAP mask on. No drainage was noted from the nose or ears. Neck: No meningismus. Lungs: Clear to auscultation. Cardiovascular: Heart rate is for the most part regular, but there are areas where it is irregular. Abdomen: The abdomen is soft and nontender. Extremities: Both legs are less erythematous and swollen. LAB AND X-RAY: Chest x-ray shows no infiltrate today. ASSESSMENT AND PLAN: Since the patient's infiltrates have cleared, I do not think the patient has pneumonia. Her leg cellulitis is getting better. I am continuing ceftaroline and I am still waiting to see the results of the procalcitonin level. COMORBIDITIES: The patient has comorbidities that include COPD, diabetes mellitus, chronic leg edema, end-stage renal disease and morbid obesity. cc: MD Wallace Serrano Jr, MD
[2018-08-18] MEDS ORDERED: MAGNESIUM SULFATE 2 GM/S.W.I. 2 GM/50 ML IVPB IV ONE (10:19)
--- NOTE | 2018-08-18 12:20 | Diag Imaging Result Doc PS360 ---
CT ABD/PELVIS W/IV CONT ONLY - 08/18/2018 INDICATION: mets cervical ca, evaluate dz status, on keytruda COMPARISON: 03/02/2018 FINDINGS: There are bilateral lower lobe infiltrates left greater than right. There is a trace right pleural effusion. Heart size is slightly enlarged. There is a nasogastric tube in good position. There is mild body wall edema. There is a Eaosn catheter in the urinary bladder. Uterus and rectum are normal. There are cholecystectomy clips. The liver, pancreas, spleen, adrenals, and kidneys are normal. No bowel obstruction or inflammation. There are advanced degenerative changes of the spine and pelvis. Bones are intact. IMPRESSION: 1. Bilateral lower lobe infiltrates left greater than right consistent with atelectasis although the there may be pneumonia as well. Trace right pleural effusion. 2. Body wall edema. 3. No acute process in the abdomen. This exam was performed using automated exposure control, adjustment of mA or kV according to patient size, and/or use of iterative reconstruction technique Electronically signed by Shayan Erwin 08/18/2018 12:17 PM
--- NOTE | 2018-08-18 12:58 | PROGRESS NOTE ---
DATE: 08/18/2018 SUBJECTIVE: The patient is still obtunded. NG tube was placed. Not eating well. Awake. Apparently, nurse practitioner ordered CT of the abdomen and pelvis for follow-up on some cervical cancer. This morning, we started giving her home medicines through the NG tube. Not eating well. She has excellent diuresis. REVIEW OF SYSTEMS: None reported. PHYSICAL EXAMINATION: Vital Signs: Temperature is 98.6, pulse is 80, blood pressure is 116/73 96% on Ventimask. General: Morbidly obese, and restrained. Chest: Bilateral poor air entry. Heart: Sounds are regular. Very distant. Abdomen: Belly is soft, obese, nontender. Good bowel sounds. 1+ pedal edema in both legs. LABS: CBC: White cell count 3.7, hematocrit 32, platelets 183,000. ABG: pH is 7.37, pCO2 57, PO2 94. SMA-7: Sodium 150, potassium 3.8, creatinine is 1.1, magnesium 1.0. Chest x-ray on 08/18/2018: Cardiomegaly, stable. CT scan of the abdomen and pelvis: Bowel wall edema. No acute process in the belly. ASSESSMENT AND PLAN: 1. Altered mental status due to Pickwickian syndrome, with hypercarbia, on BiPAP machine, under the care of Dr. Matthews. Slowly wean off the FiO2. 2. Bilateral leg cellulitis due to dependent edema, currently on IV ceftaroline 600 mg IV q.12. 3. Chronic kidney disease. Creatinine back to the baseline. 4. Hypomagnesemia. Replace the magnesium. 5. Deep venous thrombosis prophylaxis with Lovenox and gastrointestinal prophylaxis with IV Protonix. 6. History of cor pulmonale. BiPAP machine. Slowly wean off FiO2. 7. Type 2 diabetes, currently on insulin. 8. Nutrition. NG tube. We will start with Dietary consult, and also add some free water. PICC line on the right side. Stable. Will follow up. LEVEL OF DOCUMENTATION: 25 minutes. cc: MD Wallace Hinojosa Jr, MD
--- NOTE | 2018-08-18 15:19 | CARDIOLOGY PROGRESS NOTE ---
DATE: 08/18/2018 CHIEF COMPLAINT: Dyspnea, confusion, and agitation. SUBJECTIVE: Mrs. Ndiaye remains heavily sedated at this time. She does not interact very much. OBJECTIVE: Blood pressure is 116/73, temperature 98.6, pulse 80, respirations 18. She is on a Cardizem drip. Rate is controlled now. HEENT unremarkable. Chest with some bilateral rhonchi. Heart sounds are irregularly irregular. Abdomen is soft. Extremities showed edema with redness of both legs, especially the left. LABORATORY WORK: Hemoglobin 9.5, hematocrit is 32.2, white cell count 3.73. Sodium 150, potassium 3.8, magnesium low at 1.0. Dr. Pineda has ordered magnesium replacement and also Dr. Matthews. IMAGING: Her most current chest x-ray from today shows stable nasogastric tube and right PICC line in good position. A CT of the abdomen that was done today shows bilateral lower lobe infiltrates, left greater than right, consistent with atelectasis; body wall edema; no acute process in the abdomen. IMPRESSION: 1. Patient has persistent atrial fibrillation, which is controlled now with intravenous Cardizem. 2. Advanced chronic obstructive pulmonary disease with pleural effusions/ atelectasis. 3. Obesity. 4. Remote history of deep venous thrombosis (on the right side). There has been no recent episode of it. The last ultrasound of the lower extremities done on 08/12/2018 shows that there is no obvious deep venous thrombosis on her. 5. History of diabetes mellitus. 6. Hypertension. 7. Agitation/encephalopathy. RECOMMENDATION: At this time, I would suggest to continue Cardizem as we are doing. No other drastic intervention. cc: MD Wallace Mercado Jr, MD MTDD
[2018-08-18] MEDS: ELAVIL PO SCH (22:06)
[2018-08-18] MEDS: LOVENOX SUBQ SCH (22:07)
[2018-08-18] MEDS: SODIUM CHLORIDE 0.9% INJ SCH (22:11)
[2018-08-19] MEDS: MAG-OX PO SCH ×4 (01:02→18:35)
[2018-08-19] MEDS: HUMALOG SUBQ SCH ×6 (01:22→21:21)
[2018-08-19] MEDS: TEFLARO 600 MG in NS 250 ML IV SCH ×2 (01:46→14:34)
[2018-08-19] MEDS: LOTRIMIN 1% CREAM TOP SCH ×2 (01:46→14:34)
[2018-08-19] MEDS: DUONEB (A & A) INH SCH ×6 (03:36→23:25)
[2018-08-19 04:31] LABS: ALLEN TEST YES; BE 6.4 mmoll (-3.0-3.0); BLOOD TYPE ARTERIAL; HCO3-(ACT) 29.8 mmoll (20.0-26.0); METHB 0.6 % (0.0-1.5); O2(CT) 14.4 mL/dL (15.0-23.0); O2HB 90.6 % (95.0-99.0); PO2(98.6) 61 mmHg (60-100); SAMPLE BLOOD; SAO2 92.4 % (95.0-100.0); THB 11.3 g/dL (11.5-17.4); pH(98.6) 7.39 (7.35-7.45)
[2018-08-19 04:32] LABS: MODALITY BI PAP; PCO2(98.6) 54 mmHg (35-45)
[2018-08-19] MEDS: NEURONTIN PO SCH ×3 (05:59→21:15)
[2018-08-19 06:07] LABS: CALCIUM 8.7 mg/dL (8.8-10.2); CREATININE 1.1 mg/dL (0.5-0.9); MAGNESIUM 1.8 mg/dL (1.5-2.7); PHOSPHORUS 3.8 mg/dL (2.7-4.5); POTASSIUM 3.6 mmol/L (3.5-5.1)
[2018-08-19 06:33] LABS: PREALBUMIN 6.6 mg/dL (20-40)
--- NOTE | 2018-08-19 06:51 | Diag Imaging Result Doc PS360 ---
CHEST-PORTABLE - 08/19/2018 INDICATION: respiratory failure COMPARISON: 08/18/2018 FINDINGS: There has been significant collapse of the left lower lobe, with deviation of the mediastinum to the left. Stable cardiomegaly and pulmonary vascular congestion. No dense infiltrates or significant effusion. IMPRESSION: Significant collapse of the left lung with volume loss and deviation of the mediastinum to the left, presumably due to airway mucous plugging. Electronically signed by Shayan Erwin 08/19/2018 6:49 AM
--- NOTE | 2018-08-19 07:57 | INFECTIOUS DISEASE PROGRESS NO ---
DATE: 08/19/2018 PRESENT ILLNESS: Patient has bilateral leg cellulitis. It is slightly better than when she came in, but still a significant amount of erythema remains. The patient's newest finding is that she has collapse of part of her left lung. Dr. Erwin, who read the x-ray, thought that there could be mucous plugging of the bronchus. MEDICATIONS: This is the sixth day of treatment with ceftaroline. PHYSICAL EXAMINATION: Vital Signs: Temperature is 97.8 degrees, pulse 83, respirations 20, blood pressure 135/76. General: This is an obese, elderly female. She is much more alert today, and in fact is even trying to talk. Head/eyes/ears/nose/throat: No drainage was noted from the nose or ears. I was unable to get a good look at her mouth. Neck: No stiffness. Lungs: Clear to auscultation. Cardiovascular: Heart rate is irregular. Abdomen: Soft and not tender. Extremities: The patient's both legs remain edematous and erythematous, but overall there has been some improvement. LAB AND X-RAY: The blood gases show a pH of 7.39, a PO2 of 61, a pCO2 of 54. Creatinine is 1.1. GFR is 50. Chest x-ray as mentioned above shows significant left lung collapse. ASSESSMENT AND PLAN: I am going to continue ceftaroline. I have discussed with Dr. Matthews about the patient's lung collapse, and he asked me to make the patient nothing by mouth, which I have done. For now, I am going to continue ceftaroline also. I did order a procalcitonin level, the result of which is not yet back. COMORBIDITIES: The patient's comorbidities: She has COPD, diabetes mellitus, chronic leg edema, end-stage renal disease, and morbid obesity. cc: MD Wallace Serrano Jr, MD
[2018-08-19] MEDS: CENTRUM SILVER PO SCH (08:49)
[2018-08-19] MEDS: ICAR-C PO SCH ×2 (08:49→21:15)
[2018-08-19] MEDS: LEXAPRO PO SCH (08:49)
[2018-08-19] MEDS: SANTYL OINT TOP SCH (08:49)
--- NOTE | 2018-08-19 10:48 | EKG Report ---
Test Performed on : 08/15/2018 7:59:24 PM Test Reason : NO EKG ORDER FOR MUSE Blood Pressure : / mmHG Vent. Rate : 136 BPM Atrial Rate : 197 BPM P-R Int : 000 ms QRS Dur : 098 ms QT Int : 358 ms P-R-T Axes : 000 058 063 degrees QTc Int : 538 ms Atrial fibrillation. with rapid ventricular response. with premature ventricular or aberrantly conduc césar complexes. Nonspecific ST abnormality Abnormal ECG When compared with ECG of 15-AUG-2018 19:58, (Unconfirmed) Atrial fibrillation. has replaced Sinus rhythm. Confirmed by Merrick RIOS, Norris Galdamez ([id number]) on 08/21/2018 8:34:51 AM
[2018-08-19] MEDS: ZOFRAN IV PRN (11:08)
[2018-08-19] MEDS: SODIUM CHLORIDE 0.9% INJ SCH ×2 (11:08→21:15)
[2018-08-19] MEDS: PROTONIX IV SCH ×2 (11:08→21:15)
[2018-08-19] MEDS: MUCOMYST 20% INH SCH ×2 (11:24→19:34)
[2018-08-19] MEDS ORDERED: EPINEPHRINE ONE (12:47)
[2018-08-19] MEDS ORDERED: XYLOCAINE 2% ONE (12:47)
[2018-08-19] MEDS ORDERED: XYLOCAINE 2% VISCOUS ONE (12:47)
[2018-08-19] MEDS ORDERED: SODIUM CHLORIDE 0.9% 20 ML ONE ×2 (12:48→13:36)
[2018-08-19] MEDS ORDERED: DIPRIVAN 1% ONE (12:57)
--- NOTE | 2018-08-19 13:31 | PROGRESS NOTE ---
DATE: 08/19/2018 SUBJECTIVE: I am seeing the patient for Dr. Meyer who is out this week. The patient remains in the ICU. She is alert but has been found to have a partial collapse of her left lung this morning on chest x-ray and is going down now by stretcher for a bronchoscopy per Dr. Matthews. OBJECTIVE: Vital Signs: Afebrile, pulse 76, respirations 24, blood pressure 123/67, O2 saturation 80 to 95 percent on O2 per Ventimask. CV: Irregularly irregular. Lungs: Decreased breath sounds with possible rhonchi on the left. Right fairly clear. Laboratory Data: Shows sodium 148, potassium 3.6, chloride 105, CO2 30, BUN 12, creatinine 1.1, glucose 150s primarily, calcium 8.7, phosphorus 3.8, magnesium 1.8 up from 1.0 yesterday. Prealbumin 6.6. Chest x-ray today reveals significant collapse of the left lung with volume loss and deviation of the mediastinum to the left, presumably due to airway mucus plugging per Dr. Erwin. ASSESSMENT: 1. Partial collapse of the left lung. Rule out secondary to mucus plugging. Going now for a bronchoscopy per Dr. Matthews. 2. Hypercapnia with Pickwickian syndrome and chronic obstructive pulmonary disease, on a BiPAP at night. 3. Bilateral leg cellulitis, on ceftaroline intravenous antibiotic per Dr. Sumit Polanco. 4. Chronic kidney disease, now with improved renal function. 5. Hypomagnesemia, improved with repletion. 6. Cor pulmonale. 7. Type 2 diabetes mellitus, on sliding scale insulin. 8. Nutrition per nasogastric tube. PLAN: Continue antibiotics. Patient to receive bronchoscopy hopefully to clear mucus plugging. Continue other supportive measures with albuterol nebulizers and Mucomyst nebulizers. Continue to monitor labs closely to include electrolytes and CBC. cc: MD Wallace Lopez Jr, MD
[2018-08-19] MEDS ORDERED: ZEMURON ONE ×2 (13:43→13:52)
[2018-08-19] MEDS ORDERED: VERSED ONE (13:44)
[2018-08-19] MEDS ORDERED: QUELICIN (DOSE) ONE (13:52)
--- NOTE | 2018-08-19 14:24 | OPERATIVE NOTE ---
PROCEDURE DATE: 08/19/2018 REFERRING PHYSICIANS: Dr. Wallace Meyer and Dr. Unruly Jenkins and Dr. Sumit Polanco. PROCEDURE: Bronchoscopy. INDICATION: Left lung collapse, atelectasis and mucous plugging. DESCRIPTION OF PROCEDURE: Consent obtained. Conscious sedation administered via anesthesia. The patient was preemptively electively intubated. Flexible bronchoscope passed through the ET tube, and all major segments visualized. There was initially mucous plug in the left main segment and also subsegment of the left side. After cleaning and suctioning and lavaging, we have noticed that there is a left upper lobe mucus irritation initially we thought, but with further visualization there is quite a possibility of small mucous membrane tumors in the left upper lobe bifurcation of the lingula. Identified the lingula, both blocking about 10% or so. They are just raised above the mucous membranes (see pictures). So, brushings and then endobronchial biopsies taken, sent for cytology, microbiology and pathology. In addition to the lavages, the chest x-ray fluoroscopy guidance used for sampling. Patient tolerated the procedure well. Being sent back to the intensive care unit on the ventilator. Again, the biopsies were endobronchial. No transbronchial biopsies done. So, the patient being sent back on the ventilator to the intensive care unit. Chest x-ray is requested. No complications noted so far. IMPRESSION: 1. Atelectasis on the left side and left mucous plugging. 2. 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 PLAN: Awaiting cytology, microbiology and pathology results. The total blood loss was less than 5 mL and we sometimes used diluted epinephrine to minimize bleeding. cc: MD Wallace Holliday Jr, MD
[2018-08-19] MEDS: DIPRIVAN 1% 1,000 MG/100 ML BOTTLE IV SCH ×3 (14:31→22:57)
[2018-08-19] MEDS ORDERED: DIPRIVAN 1% 1,000 MG/100 ML BOTTLE ONE (14:32)
--- NOTE | 2018-08-19 15:06 | Diag Imaging Result Doc PS360 ---
EXAM: CHEST-PORTABLE INDICATION: post bronchoscopy TECHNIQUE: One view COMPARISON: 08/19/2018 FINDINGS: There is a newly placed ET tube. The tip projects over the trachea and above the lady at about the T4 level. The right PICC line and NG tube appear to be in stable positions. There is no evidence of pneumothorax. The left lower lobe appears slightly better expanded than the previous study. No new consolidations are identified. Cardiac silhouette is stable. IMPRESSION: 1.Interval intubation as described. 2.Slightly better aeration of the left lung as compared to the previous study. Electronically signed by Sigifredo Shi 08/19/2018 3:04 PM
[2018-08-19] MEDS: LOVENOX SUBQ SCH (21:15)
[2018-08-19] MEDS: ELAVIL PO SCH (21:15)
[2018-08-20] MEDS: MAG-OX PO SCH ×2 (01:00→06:13)
[2018-08-20] MEDS: HUMALOG SUBQ SCH ×6 (01:13→20:47)
[2018-08-20] MEDS: LOTRIMIN 1% CREAM TOP SCH ×2 (02:15→13:26)
[2018-08-20] MEDS: TEFLARO 600 MG in NS 250 ML IV SCH ×2 (02:15→13:30)
[2018-08-20] MEDS: DUONEB (A & A) INH SCH ×6 (03:25→23:20)
[2018-08-20] MEDS: NEURONTIN PO SCH ×3 (03:56→20:38)
[2018-08-20] MEDS: DIPRIVAN 1% 1,000 MG/100 ML BOTTLE IV SCH ×5 (03:58→21:55)
[2018-08-20] MEDS: CARDIZEM 100 MG in NS 80 ML IV SCH ×2 (04:07→22:29)
[2018-08-20 05:19] LABS: ALLEN TEST YES; BE 6.2 mmoll (-3.0-3.0); BLOOD TYPE ARTERIAL; HCO3-(ACT) 29.8 mmoll (20.0-26.0); O2(CT) 11.9 mL/dL (15.0-23.0); O2HB 95.8 % (95.0-99.0); PO2(98.6) 105 mmHg (60-100); SAMPLE BLOOD; SAO2 97.6 % (95.0-100.0); SRATE 14 BPM; THB 8.7 g/dL (11.5-17.4); TVOL 500 mL; pH(98.6) 7.39 (7.35-7.45)
[2018-08-20 05:20] LABS: MODALITY VENTILATOR; PCO2(98.6) 53 mmHg (35-45)
[2018-08-20 06:47] LABS: CALCIUM 8.8 mg/dL (8.8-10.2); CREATININE 1.2 mg/dL (0.5-0.9); MAGNESIUM 1.8 mg/dL (1.5-2.7); POTASSIUM 3.3 mmol/L (3.5-5.1)
--- NOTE | 2018-08-20 07:04 | EKG Report ---
Test Performed on : 08/20/2018 06:42:57 AM Test Reason : afib Blood Pressure : / mmHG Vent. Rate : 094 BPM Atrial Rate : 094 BPM P-R Int : 166 ms QRS Dur : 088 ms QT Int : 360 ms P-R-T Axes : 057 033 076 degrees QTc Int : 450 ms Sinus rhythm. with premature atrial complexes. with aberrant conduction. Nonspecific ST and T wave abnormality Abnormal ECG When compared with ECG of 15-AUG-2018 19:59, (Unconfirmed) Sinus rhythm. has replaced Atrial fibrillation. premature ventricular complexes. Confirmed by Merrick RIOS, Norris Galdamez ([id number]) on 08/21/2018 8:51:42 AM
[2018-08-20] MEDS ORDERED: POTASSIUM CHLORIDE 20% LIQUID PO ONE (07:32)
--- NOTE | 2018-08-20 07:51 | Diag Imaging Result Doc PS360 ---
EXAM: CHEST-PORTABLE INDICATION: respiratory failure TECHNIQUE: One view COMPARISON: 08/19/2018 FINDINGS: Support tubes and lines are in stable positions. Lung volumes are very low. Central vascular crowding is noted. Left lower lobe atelectasis appears less prominent than the previous study. No new consolidation is identified. Cardiac silhouette is stable. IMPRESSION: Poor inspiration but likely improved atelectasis at the left lower lobe. Electronically signed by Sigifredo Shi 08/20/2018 7:49 AM
[2018-08-20 07:52] LABS: BASO# 0.02 X1000 (0.0-0.2); BASO% 0.5 % (0.0-0.8); EOS# 0.07 X1000 (0.0-0.7); EOS% 1.8 % (0.0-10.0); HEMATOCRIT 30.6 % (37.0-47.0); HEMOGLOBIN 8.5 g/dL (12.0-16.0); IMM GRAN# 0.06 X1000 (0.0-0.04); IMM GRAN% 1.5 % (0.0-0.5); LYMPH# 1.16 X1000 (1.2-3.4); LYMPH% 29.1 % (20.5-51.1); MCH 23.9 PG (27-31); MCHC 27.8 g/dL (33-37); MONO# 0.75 X1000 (0.11-0.59); MONO% 18.8 % (1.7-9.3); MPV 10.8 FL (7.4-10.4); NEUT# 1.92 X1000 (1.4-6.5); NEUT% 48.3 % (42.2-75.2); PLT 202 X1000 (130-400); RBC 3.56 XMIL (4.2-5.4); RDW 21.6 % (11.5-14.5); WBC 3.98 X1000 (4.8-10.8)
[2018-08-20] MEDS: MUCOMYST 20% INH SCH ×2 (08:01→19:30)
[2018-08-20] MEDS: ICAR-C PO SCH ×2 (08:23→20:38)
[2018-08-20] MEDS: CENTRUM SILVER PO SCH (08:23)
[2018-08-20] MEDS: SANTYL OINT TOP SCH (08:24)
[2018-08-20] MEDS: LEXAPRO PO SCH (08:24)
--- NOTE | 2018-08-20 08:31 | INFECTIOUS DISEASE PROGRESS NO ---
DATE: 08/20/2018 PRESENT ILLNESS: The patient has bilateral leg cellulitis and on x-ray, it was found that there was a left lung collapse. MEDICATIONS: The patient is on her 7th day of ceftaroline. PHYSICAL EXAMINATION: Vital Signs: Temperature is 99.6 degrees, pulse 102, respirations 18, blood pressure 105/49. General: This is an obese, elderly female who is intubated and sedated. Head, Eyes, Ears, Nose, and Throat: No drainage was noted from the nose or ears. Orotracheal tube is in place. Neck: No meningismus. Lungs: Clear to auscultation. Cardiovascular: Heart rate was regular. Abdomen: Soft and nontender. Extremities: The patient has a PICC in her right arm. The site is not erythematous or draining. The legs were both edematous and erythematous but less so than they had been recently. Neurologic: The patient is sedated. She made no spontaneous movements. Integument: No rash noted. LAB AND X-RAY: The chest x-ray shows improvement in the left lower lobe atelectasis. Creatinine is 1.2. GFR is 45. Blood gases show a pH of 7.39, a PO2 of 105, and pCO2 of 53. CBC shows a white count of 3980, hemoglobin 8.5, and platelet count 202,000. ASSESSMENT AND PLAN: The patient has cellulitis of the legs. The patient may have pneumonia in addition to the lung collapse. A procalcitonin level is pending. For now, I plan on continuing ceftaroline. COMORBIDITIES: The patient has COPD, diabetes mellitus, chronic leg edema, end-stage renal disease, and morbid obesity. cc: MD Wallace Serrano Jr, MD
[2018-08-20 08:37] LABS: EOS 1 % (1-10); HYPOCHROM 1+; LYMPHS 26 % (21-51); MONO 17 % (1-9); SEGS 56 % (42-75)
[2018-08-20] MEDS: PROTONIX IV SCH ×2 (09:03→21:55)
[2018-08-20] MEDS ORDERED: LASIX IV ONE (09:52)
--- NOTE | 2018-08-20 13:23 | PROGRESS NOTE ---
DATE: 08/20/2018 SUBJECTIVE: I am seeing Mrs. Ndiaye in Dr. Meyer absence. She is now on a ventilator after having undergone bronchoscopy yesterday for atelectasis and partial collapse left lung due to mucus plugging that was found in left bronchial tree. 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 The patient is sedated. OBJECTIVE: Vital Signs: T-max 100.4, pulse 98, respirations 18, blood pressure 113/65. Again, NG tube and endotracheal tube in place. PICC line in place right arm. CV: Regular rhythm with very frequent ectopy, rule out intermittent atrial fibrillation. Lungs: Decreased breath sounds left lung base fairly clear on the right. Abdomen: Protuberant. Sluggish bowel sounds. Extremities: 1+ to 2+ lower extremity edema with mild redness of the lower extremities and some mild scaliness over the distal left leg. Left ankle is bandaged currently. Neurologic: Patient is sedated. LABS: Sodium 146, potassium 3.3, chloride 104, CO2 of 29, BUN 13, creatinine 1.2. Blood sugars low to 100s. Magnesium 1.8. White count 3.98, hemoglobin 8.5, platelets 202. ASSESSMENT: 1. Left lung atelectasis plus-minus pneumonia with possible lingular mass per bronchoscopy. 2. Hypercapnia with Pickwickian syndrome and chronic obstructive pulmonary disease, now on ventilatory support. 3. Bilateral lower extremity cellulitis on ceftaroline IV per Dr. Polanco. 4. Chronic kidney disease with improvement back to baseline around 1.2 to 1.3 creatinine. 5. Hypomagnesemia, improved with repletion. 6. Hypokalemia, mild. 7. Cor pulmonale. 8. Type 2 diabetes mellitus, stable on sliding scale insulin. PLAN: Cytology is pending from bronchial washing and also fungal and bacterial studies pending in that regard. She is on albuterol nebulizers, Mucomyst nebulizers, and remains on ceftaroline for the lower extremity cellulitis. Supportive measures are being pursued vigorously per Dr. Matthews and Collin. She is receiving potassium repletion and some Lasix per Dr. Matthews today as well. cc: MD Wallace Lopez Jr, MD
[2018-08-20] MEDS: ELAVIL PO SCH (20:38)
[2018-08-20] MEDS: LOVENOX SUBQ SCH (20:38)
[2018-08-21] MEDS: HUMALOG SUBQ SCH ×6 (01:04→21:53)
[2018-08-21] MEDS: LOTRIMIN 1% CREAM TOP SCH ×2 (02:02→13:14)
[2018-08-21] MEDS: DIPRIVAN 1% 1,000 MG/100 ML BOTTLE IV SCH ×6 (02:02→21:50)
[2018-08-21] MEDS: TEFLARO 600 MG in NS 250 ML IV SCH (02:04)
[2018-08-21] MEDS: DUONEB (A & A) INH SCH ×6 (03:25→23:33)
[2018-08-21] MEDS: NEURONTIN PO SCH ×3 (04:48→21:49)
[2018-08-21 04:58] LABS: ALLEN TEST YES; BE 8.7 mmoll (-3.0-3.0); BLOOD TYPE ARTERIAL; HCO3-(ACT) 31.7 mmoll (20.0-26.0); METHB 0.5 % (0.0-1.5); O2(CT) 12.5 mL/dL (15.0-23.0); O2HB 97.2 % (95.0-99.0); PO2(98.6) 141 mmHg (60-100); SAMPLE BLOOD; SAO2 98.7 % (95.0-100.0); SRATE 14 BPM; THB 8.9 g/dL (11.5-17.4); TVOL 500 mL; pH(98.6) 7.37 (7.35-7.45)
[2018-08-21 05:02] LABS: MODALITY VENTILATOR; PCO2(98.6) 61 mmHg (35-45)
--- NOTE | 2018-08-21 06:38 | Diag Imaging Result Doc PS360 ---
CHEST-PORTABLE - 08/21/2018 INDICATION: respiratory failure COMPARISON: 08/20/2018 FINDINGS: Support lines and tubes are stable. Stable cardiomegaly and severe pulmonary vascular congestion. No new or focal infiltrates. No large pleural effusion. IMPRESSION: No change from prior. Electronically signed by Shayan Erwin 08/21/2018 6:35 AM
[2018-08-21] MEDS: MUCOMYST 20% INH SCH ×2 (07:29→19:33)
[2018-08-21] MEDS: SANTYL OINT TOP SCH (08:27)
[2018-08-21] MEDS: ICAR-C PO SCH ×2 (08:27→21:50)
[2018-08-21] MEDS: LEXAPRO PO SCH (08:27)
[2018-08-21] MEDS: CENTRUM SILVER PO SCH (08:27)
[2018-08-21] MEDS: PROTONIX IV SCH ×2 (09:31→21:46)
[2018-08-21] MEDS: SODIUM CHLORIDE 0.9% INJ SCH ×2 (09:31→21:51)
--- NOTE | 2018-08-21 10:49 | INFECTIOUS DISEASE PROGRESS NO ---
DATE: 08/21/2018 PRESENT ILLNESS: The patient has on x-ray pulmonary venous congestion. Her procalcitonin level is 0.23. Based on these findings, I think that the patient does not have pneumonia and she does have, as mentioned by the radiologist, pulmonary venous congestion. The patient does have cellulitis of the legs also. It is improving and the ulcerated area on the left heel is clean and it is getting smaller. MEDICATIONS: This is the 8th day of ceftaroline treatment. PHYSICAL EXAMINATION: Vital Signs: Temperature is 98 degrees, pulse 85, respirations 18, blood pressure 99/58. General: This is an obese, elderly female. She is intubated and sedated. Lungs: Clear to auscultation. Cardiovascular: Regular heart rate. Abdomen: Soft and nontender. Extremities: The patient has a PICC in her right arm. The site is not erythematous or swollen. Both legs are edematous. They seem to be less erythematous today than yesterday. The patient does have an ulcer on her left heel. As mentioned above, the ulcer is clean and granulating. Neurologic: Patient is sedated. LABS/X-RAYS: Patient's does not have a CBC or BMP for today. The bronchial washings obtained on the patient are not growing any organisms. Chest x-ray shows pulmonary vascular congestion. The procalcitonin level, as mentioned above, is 0.23. ASSESSMENT AND PLAN: The patient does not have any more pneumonia. She does have cellulitis of the legs which is improving. My plan now is to discontinue ceftaroline and put the patient on Ancef. COMORBIDITIES: Chronic obstructive pulmonary disease, diabetes mellitus, chronic leg edema, end- stage renal disease, and morbid obesity. cc: MD Wallace Serrano Jr, MD
--- NOTE | 2018-08-21 12:28 | PULMONOLOGY PROGRESS NOTE ---
DATE: 08/21/2018 SUBJECTIVE: The patient is sedated on mechanical ventilation. She failed spontaneous breathing trial. She remains on mechanical ventilation. OBJECTIVE: The patient has been afebrile over the last 24 hours. Blood pressure 107/51, heart rate 96, respiratory rate 15, oxygen saturation 98%. HEENT: Pupils are equal and reactive. Oropharynx is clear. Neck is supple. Chest reveals prolonged expiratory phase with faint wheezing. Cardiac: S1, S2. Abdomen is obese and soft. Extremities without edema. DIAGNOSTIC DATA: Sputum culture reveals no new data. Lung biopsy reveals fragments of patchy inflammation but no evidence of malignancy. Chest x-ray reveals cardiomegaly with pulmonary vascular congestion. Arterial blood gas reveals a pH of 7.37, pCO2 of 61, pO2 of 141. IMPRESSION: A 67 year old with morbid obesity and a BMI of 45, severe COPD with ongoing tobacco use, acute hypoxemic respiratory failure, acute hypercapnic respiratory failure, pulmonary hypertension. She is now on mechanical ventilation following bronchoscopy. RECOMMENDATIONS: 1. Continue current ventilatory support. We will attempt to decrease PEEP today. 2. Continue bronchodilators. 3. Antibiotic management per Dr. Polanco. Cultures remain negative. 4. Recommend low dose steroid. Time spent in critical care is 30 plus minutes. cc: MD Wallace Lowe Jr, MD
[2018-08-21] MEDS: KEFZOL 2 GM/D5W 2 GM/50 ML IVPB IV SCH ×2 (13:01→21:50)
[2018-08-21] MEDS: SOLU-MEDROL IV SCH ×2 (13:03→23:18)
[2018-08-21 13:36] LABS: ALBUMIN 2.5 g/dL (3.5-5.0); CALCIUM 8.7 mg/dL (8.8-10.2); CREATININE 1.2 mg/dL (0.5-0.9); PHOSPHORUS 3.6 mg/dL (2.7-4.5); POTASSIUM 3.8 mmol/L (3.5-5.1)
--- NOTE | 2018-08-21 13:51 | PROGRESS NOTE ---
DATE: 08/21/2018 SUBJECTIVE: The patient remains in the ICU on mechanical ventilation followed by Dr. Matthews/Adeola. She is sedated. OBJECTIVE: Vital Signs: Afebrile, pulse 96, respirations 15, blood pressure 107/51. General: Moderately obese white female, sedated on mechanical ventilation. So far, she has failed weaning trial. CV: RRR. Lungs: CTA, except for very rare wheeze bilaterally. Abdomen: Protuberant, soft, nontender. Active bowel sounds. NG tube in place. Extremities: Trace lower extremity edema with mild redness to the shins, especially bilaterally, right slightly greater than left. Ulcer of the left heel is currently bandaged. X-RAYS: Chest x-ray reveals pulmonary vascular congestion. ASSESSMENT: 1. Left lung atelectasis, improved, with pulmonary and vascular congestion prominent. Negative for pneumonia per Dr. Polanco' report. 2. Hypercapnia with advanced chronic obstructive pulmonary disease and pickwickian syndrome, requiring ventilatory support presently. 3. Bilateral lower extremity cellulitis on cefazolin now per Dr. Polanco. 4. Chronic kidney disease improvement back to baseline. Creatinine 1.2 to 1.3, now. 5. Hypokalemia, status post repletion. 6. Cor pulmonale. 7. Type 2 diabetes mellitus, stable on sliding scale insulin. 8. Paroxysmal atrial fibrillation on Cardizem drip. 9. Possible lingular mass per bronchoscopy done per Dr. Matthews. Biopsy of left upper lung lesion shows chronic inflammatory process and fibrosis. No CA. PLAN: 1. The patient is on antibiotics for the cellulitis and is on some low-dose steroids per Dr. Mir for mild COPD. She remains on nebulizer treatments and ventilatory support. NG tube remains in place. 2. The patient remains on Cardizem for the paroxysmal atrial fibrillation. Continue supportive measures and will follow along with Dr. Mir. cc: MD Wallace Lopez Jr, MD MTDD
[2018-08-21] MEDS: TYLENOL PR PRN (16:51)
--- NOTE | 2018-08-21 17:26 | PROGRESS NOTE ---
DATE: 08/21/2018 SUBJECTIVE: The patient continues sedated on mechanical ventilator. She has converted back to sinus rhythm. OBJECTIVE: Vital Signs: Blood pressure 101/57, heart rate 85 with ECG monitor showing sinus rhythm with frequent premature supraventricular complexes and occasional premature ventricular complex. Oxygen saturation 97% on ventilator with FiO2 of 50%. Jugular venous distention cannot be appreciated. Chest: Auscultation of the chest reveals coarse breath sounds anteriorly. Cardiac Exam: Reveals a regular rate and rhythm without appreciable murmur or gallop. Extremities: Without edema. LABORATORY DATA: Includes arterial blood gas with pH of 7.37, pCO2 of 61, PO2 141. On ventilator with FiO2 of 60%. Sodium 144, potassium 3.8, chloride 102, carbon dioxide 32, BUN 15, creatinine 1.2, glucose 134. Albumin 2.5, magnesium 1.9. IMPRESSION: 1. Hypoxemic/hypercapnic respiratory failure, in a setting of severe COPD and morbid obesity. 2. Recent persistent atrial fibrillation developing during her hospital course now converted back to sinus rhythm. 3. Remote history of deep venous thrombosis on the right side. There has been no evidence of recurrence. 4. Diabetes mellitus type 2. 5. Hypertension. RECOMMENDATIONS: 1. Discontinue intravenous Cardizem. 2. Continue to monitor cardiac rhythm. cc: MD Wallace Farfan Jr, MD
[2018-08-21] MEDS: LOVENOX SUBQ SCH (21:48)
[2018-08-21] MEDS: ELAVIL PO SCH (21:49)
[2018-08-22] MEDS: HUMALOG SUBQ SCH ×6 (00:16→21:08)
[2018-08-22] MEDS: DIPRIVAN 1% 1,000 MG/100 ML BOTTLE IV SCH ×8 (01:50→22:36)
[2018-08-22] MEDS: LOTRIMIN 1% CREAM TOP SCH ×2 (01:51→13:35)
[2018-08-22] MEDS: NEURONTIN PO SCH ×3 (03:28→21:06)
[2018-08-22] MEDS: DUONEB (A & A) INH SCH ×6 (03:29→23:31)
[2018-08-22 04:43] LABS: ALLEN TEST YES; BE 8.6 mmoll (-3.0-3.0); BLOOD TYPE ARTERIAL; HCO3-(ACT) 31.6 mmoll (20.0-26.0); METHB 0.7 % (0.0-1.5); O2(CT) 13.3 mL/dL (15.0-23.0); O2HB 96.8 % (95.0-99.0); PCO2(98.6) 36 mmHg (35-45); PO2(98.6) 159 mmHg (60-100); SAMPLE BLOOD; SAO2 98.3 % (95.0-100.0); SRATE 12 BPM; THB 9.5 g/dL (11.5-17.4); TVOL 650 mL; pH(98.6) 7.55 (7.35-7.45)
[2018-08-22 04:45] LABS: MODALITY VENTILATOR
[2018-08-22] MEDS: KEFZOL 2 GM/D5W 2 GM/50 ML IVPB IV SCH ×3 (04:49→21:07)
[2018-08-22 07:13] LABS: CALCIUM 8.6 mg/dL (8.8-10.2); CREATININE 1.2 mg/dL (0.5-0.9); PHOSPHORUS 4.4 mg/dL (2.7-4.5); POTASSIUM 4.1 mmol/L (3.5-5.1)
[2018-08-22] MEDS: MUCOMYST 20% INH SCH ×2 (07:32→19:32)
--- NOTE | 2018-08-22 08:23 | Diag Imaging Result Doc PS360 ---
EXAM: CHEST-PORTABLE INDICATION: respiratory failure TECHNIQUE: One view COMPARISON: 08/21/2018 FINDINGS: The ET tube is in stable position. The right PICC line is stable. Pulmonary venous congestion is approximately stable. No new consolidation is identified. Cardiac silhouette is stable. IMPRESSION: Essentially stable chest. Electronically signed by Sigifredo Shi 08/22/2018 8:20 AM
[2018-08-22] MEDS: LEXAPRO PO SCH (08:30)
[2018-08-22] MEDS: CENTRUM SILVER PO SCH (08:30)
[2018-08-22] MEDS: ICAR-C PO SCH ×2 (08:30→21:07)
[2018-08-22] MEDS: SANTYL OINT TOP SCH (09:04)
[2018-08-22] MEDS: PROTONIX IV SCH ×2 (09:04→21:06)
[2018-08-22] MEDS: SODIUM CHLORIDE 0.9% INJ SCH ×2 (09:04→21:06)
[2018-08-22] MEDS: SOLU-MEDROL IV SCH ×2 (12:04→23:25)
--- NOTE | 2018-08-22 14:14 | CARDIOLOGY PROGRESS NOTE ---
DATE: 08/22/2018 SUBJECTIVE: Ms. Ndiaye is currently on a ventilator and sedated. PHYSICAL EXAMINATION: Vital Signs: Patient is afebrile over the last 24 hours. Heart rate 72, blood pressure 95/56. Her systolics have been in the 90s to 110s. General: She is in no acute distress. Cardiovascular: She sounds to be in a regular rate and rhythm. Current telemetry shows sinus rhythm. She has no murmurs identified on examination. She has warm and well perfused lower extremities with trace to 1+ bilateral lower extremity edema. Chest: Sounds clear, but she has limited inspiratory effort and somewhat distant breath sounds. Mechanical breath sounds are heard throughout all lung rocha. Abdomen: Soft, nontender. PERTINENT DATA: Her chest x-ray shows some pulmonary venous congestion. She had a bronchoscopy that was negative. Path showed negative for malignancy. Her lab data from the shows a white count of 3.9, hematocrit of 30, platelet count is 202,000. Her chemistry today shows sodium 138, potassium 4.1, BUN 16, creatinine is 1.2. ASSESSMENT: Ms. Ndiaye is a 67-year-old female who has had intermittent atrial fibrillation during this hospitalization, currently in sinus. PLAN: For now, we will continue with current course of treatment from a cardiovascular standpoint. She is on prophylactic Lovenox. I would withhold treatment dose anticoagulation at this time for her atrial fibrillation, given her other comorbidities. cc: MD Wallace Arteaga Jr, MD
--- NOTE | 2018-08-22 14:20 | PULMONOLOGY PROGRESS NOTE ---
DATE: 08/22/2018 SUBJECTIVE: The patient is sedated. She is not breathing over the ventilator. She became agitated and tachypneic with sedation vacation. OBJECTIVE: Blood pressure is 95/56, heart rate 72, respiratory rate 12, oxygen saturation 94%. She has been afebrile for the last 24 hours. HEENT: Pupils are equal and reactive. Oropharynx appears clear. Neck is supple. Chest reveals prolonged expiratory phase with decreased wheezing compared to yesterday. Cardiac: S1, S2. Abdomen is soft and obese. Extremities reveal trace edema. DIAGNOSTIC DATA: Sodium is 138, potassium 4.1, chloride 96, bicarbonate 30, BUN is 16, creatinine 1.2. CBC not obtained today. Arterial blood gas shows pH of 7.55, pCO2 of 36, pO2 of 159. Chest x-ray is unchanged. There is no new microbiology data. IMPRESSION: A 67 year old with morbid obesity and a BMI of 45, severe COPD with ongoing tobacco use, acute hypoxemic respiratory failure, acute hypercapnic respiratory failure , with pulmonary hypertension. RECOMMENDATIONS: 1. Decrease ventilatory rate today. 2. Continue bronchodilators and steroids. 3. Continue current antibiotic regimen. 4. We will initiate spontaneous breathing trial tomorrow in the hopes that the patient can be extubated. Time spent critical care: 30+ minutes cc: MD Wallace Lowe Jr, MD MTDD
--- NOTE | 2018-08-22 15:22 | PROGRESS NOTE ---
DATE: 08/22/2018 SUBJECTIVE: Interval history was reviewed. Since I saw her last time, the patient developed acute respiratory distress syndrome with mucous plugging with left lower lobe collapse. The patient had a bronchoscopy done by Dr. Matthews. After that, the patient was intubated and sedated. Trying to wean off from the vent by Dr. Mir. NG tube was placed on hold. She also has a PICC line in the right side. No history was obtained. PHYSICAL EXAMINATION: Vital Signs: Stable. General: Morbidly obese, intubated, and sedated. NG tube was placed. Chest: Bilateral air entry. Heart: Distant heart sounds. Abdomen: Belly is soft, obese, nontender. Extremities: Decreased edema in both legs as well as stasis changes. LABORATORY DATA: ABG: pH is 7.55, pCO2 36, pO2 159 on assisted control, rate of 12, FIO2 40%, tidal volume 650, PEEP of 5. SMA-7: Sodium 138, potassium 4.1, chloride 96, BUN 60, creatinine 1.2, glucose 215. IMAGING: Chest x-ray with improvement on both sides. ET tube was in place. ASSESSMENT AND PLAN: 1. Acute respiratory failure with Pickwickian syndrome and mucous plugging, status post bronchoscopy, on ventilator support as per Dr. Mir. 2. Enteral feeding on hold. 3. PICC line on the right side. 4. Bilateral stasis dermatitis, much improved. 5. Deep venous thrombosis prophylaxis with Lovenox and gastrointestinal prophylaxis with intravenous Protonix. 6. Diabetes, on sliding scale with insulin coverage. 7. Currently, the antibiotics as per Dr. Polanco, which include cefazolin 2 grams intravenously every eight hours. LEVEL OF DOCUMENTATION: 25 minutes. cc: MD Wallace Hinojosa Jr, MD
[2018-08-22] MEDS: ELAVIL PO SCH (21:07)
[2018-08-22] MEDS: LOVENOX SUBQ SCH (21:08)
[2018-08-23] MEDS: HUMALOG SUBQ SCH ×6 (00:17→20:37)
[2018-08-23] MEDS: DIPRIVAN 1% 1,000 MG/100 ML BOTTLE IV SCH ×10 (01:04→22:47)
[2018-08-23] MEDS: LOTRIMIN 1% CREAM TOP SCH ×2 (01:54→13:21)
[2018-08-23] MEDS: DUONEB (A & A) INH SCH ×6 (03:06→23:11)
[2018-08-23] MEDS: NEURONTIN PO SCH ×3 (03:48→20:36)
[2018-08-23 04:36] LABS: ALLEN TEST YES; BE 8.6 mmoll (-3.0-3.0); BLOOD TYPE ARTERIAL; HCO3-(ACT) 31.6 mmoll (20.0-26.0); METHB 0.7 % (0.0-1.5); O2(CT) 9.2 mL/dL (15.0-23.0); O2HB 90.1 % (95.0-99.0); PO2(98.6) 58 mmHg (60-100); SAMPLE BLOOD; SAO2 91.7 % (95.0-100.0); SRATE 8 BPM; THB 7.2 g/dL (11.5-17.4); TVOL 650 mL; pH(98.6) 7.41 (7.35-7.45)
[2018-08-23 04:38] LABS: MODALITY VENTILATOR; PCO2(98.6) 54 mmHg (35-45)
[2018-08-23] MEDS: KEFZOL 2 GM/D5W 2 GM/50 ML IVPB IV SCH ×3 (04:46→20:36)
[2018-08-23] MEDS: MUCOMYST 20% INH SCH ×2 (07:19→19:26)
--- NOTE | 2018-08-23 08:22 | Diag Imaging Result Doc PS360 ---
EXAM: CHEST-PORTABLE INDICATION: respiratory failure TECHNIQUE: One view COMPARISON: 08/22/2018 FINDINGS: Support tubes and lines are in stable positions. The patient is rotated toward the left. There has been interval complete opacification of the left hemithorax. This is probably due to a large effusion and/or atelectasis. No new consolidation is identified on the right. Cardiac silhouette is essentially stable. IMPRESSION: Interval complete opacification of the left hemithorax. Electronically signed by Sigifredo Shi 08/23/2018 8:19 AM
[2018-08-23] MEDS: SANTYL OINT TOP SCH (08:51)
[2018-08-23] MEDS: ICAR-C PO SCH ×2 (08:51→20:36)
[2018-08-23] MEDS: CENTRUM SILVER PO SCH (08:51)
[2018-08-23] MEDS: LEXAPRO PO SCH (08:51)
[2018-08-23] MEDS: SODIUM CHLORIDE 0.9% INJ SCH (09:00)
[2018-08-23] MEDS: PROTONIX IV SCH ×2 (09:00→23:15)
[2018-08-23] MEDS: SOLU-MEDROL IV SCH ×2 (11:37→23:15)
--- NOTE | 2018-08-23 13:24 | PULMONOLOGY PROGRESS NOTE ---
DATE: 08/23/2018 SUBJECTIVE: The patient will arouse and follow commands with sedation vacation. She remains on mechanical ventilation. OBJECTIVE: Vital signs: The patient has remained afebrile for the last 24 hours. Blood pressure 115/63, heart rate 81, respiratory rate 8 and oxygen saturation 98%. HEENT: Pupils are equal and reactive. Oropharynx is clear. Neck: Supple. Chest: Reveals faint wheezing on the right with tubular breath sounds on the left. Cardiac: S1, S2. Abdomen: Obese and soft with positive bowel sounds. Extremities: Without edema. LABORATORY: Chest x-ray reveals mucus plug with opacification of the left hemithorax compared to yesterday. No chemistry or CBC today. Arterial blood gas showed a pH of 7.41, pCO2 of 54 and pO2 of 58 on 40% (FIO2 increased to 50%). IMPRESSION: 67-year-old with morbid obesity, severe COPD with ongoing tobacco use, acute hypoxemic respiratory failure, acute hypercapnic respiratory failure, pulmonary hypertension, with mucus plug and atelectasis of the left lung. Her tidal volumes will be adjusted, and we will continue mucolytics. I spoke with her daughter this morning. With her severe COPD and morbid obesity, extubation will be challenging, and she may require reintubation after extubation. RECOMMENDATIONS: 1. Ventilator adjustments and continue mucolytics for atelectasis of the left lung. 2. Continue bronchodilators and steroids. 3. Continue current antibiotic regimen. 4. Continue tube feeds. 5. Anticipate weaning and probable extubation with resolution of atelectatic left lung. CRITICAL CARE TIME: 30+ minutes. cc: MD Wallace Lowe Jr, MD
[2018-08-23 13:47] LABS: CALCIUM 9.4 mg/dL (8.8-10.2); CREATININE 1.2 mg/dL (0.5-0.9); POTASSIUM 3.5 mmol/L (3.5-5.1)
--- NOTE | 2018-08-23 13:54 | PROGRESS NOTE ---
DATE: 08/23/2018 Ms. Ndiaye has been on the vent for last 4 days. She has complete opacification of the left thorax. Bronchial washings have come back negative so far. Her pCO2 was 54, PO2 was 58. Other vital signs are stable. Blood sugar was 290. We are going to repeat her electrolytes and magnesium in the morning. Overall condition is unchanged. -7 cc: MD Wallace Cuellar Jr, MD
[2018-08-23 14:51] LABS: BASO# 0.01 X1000 (0.0-0.2); BASO% 0.3 % (0.0-0.8); HEMATOCRIT 28.2 % (37.0-47.0); HEMOGLOBIN 8.3 g/dL (12.0-16.0); IMM GRAN# 0.15 X1000 (0.0-0.04); IMM GRAN% 3.9 % (0.0-0.5); LYMPH# 0.54 X1000 (1.2-3.4); LYMPH% 14.2 % (20.5-51.1); MCH 23.9 PG (27-31); MCHC 29.4 g/dL (33-37); MCV 81.3 FL (81-99); MONO# 0.28 X1000 (0.11-0.59); MONO% 7.3 % (1.7-9.3); MPV 10.5 FL (7.4-10.4); NEUT# 2.83 X1000 (1.4-6.5); NEUT% 74.3 % (42.2-75.2); PLT 224 X1000 (130-400); RBC 3.47 XMIL (4.2-5.4); RDW 20.5 % (11.5-14.5); WBC 3.81 X1000 (4.8-10.8)
[2018-08-23] MEDS: ELAVIL PO SCH (20:36)
[2018-08-23] MEDS: LOVENOX SUBQ SCH ×2 (20:36→20:48)
[2018-08-24] MEDS: DIPRIVAN 1% 1,000 MG/100 ML BOTTLE IV SCH ×4 (00:36→06:55)
[2018-08-24] MEDS: HUMALOG SUBQ SCH ×6 (01:23→20:36)
[2018-08-24] MEDS: LOTRIMIN 1% CREAM TOP SCH ×2 (02:29→13:39)
[2018-08-24] MEDS: DUONEB (A & A) INH SCH ×6 (03:28→23:03)
[2018-08-24 04:33] LABS: ALLEN TEST YES; BE 10.7 mmoll (-3.0-3.0); BLOOD TYPE ARTERIAL; HCO3-(ACT) 33.3 mmoll (20.0-26.0); METHB 0.6 % (0.0-1.5); O2(CT) 11.8 mL/dL (15.0-23.0); O2HB 96.9 % (95.0-99.0); PO2(98.6) 117 mmHg (60-100); SAMPLE BLOOD; SAO2 98.1 % (95.0-100.0); SRATE 8 BPM; THB 8.5 g/dL (11.5-17.4); TVOL 750 mL; pH(98.6) 7.41 (7.35-7.45)
[2018-08-24] MEDS: NEURONTIN PO SCH ×3 (04:37→20:37)
[2018-08-24] MEDS: KEFZOL 2 GM/D5W 2 GM/50 ML IVPB IV SCH ×3 (04:43→20:37)
[2018-08-24 04:46] LABS: MODALITY VENTILATOR; PCO2(98.6) 58 mmHg (35-45)
[2018-08-24 05:43] LABS: AGAP 11; ALB/GLOB RATIO 0.9; ALBUMIN 2.9 g/dL (3.5-5.0); ALKALINE PHOSPHATASE 60 U/L (32-104); BUN 21 mg/dL (8-22); CALCIUM 9.6 mg/dL (8.8-10.2); CHLORIDE 98 mmol/L (98-107); COSMO 288; CREATININE 1.2 mg/dL (0.5-0.9); ESTIMATED GFR 45; GLUCOSE 225 mg/dL (70-104); GOT 18 U/L (10-30); GPT < 5 U/L (10-36); POTASSIUM 4.1 mmol/L (3.5-5.1); SODIUM 139 mmol/L (136-145); TCO2 30 mmol/L (25-35); TOTAL BILIRUBIN < 0.15 mg/dL (0.20-1.00); TOTAL PROTEIN 6.3 g/dL (6.3-8.3)
[2018-08-24 06:53] LABS: HEMATOCRIT 26.6 % (37.0-47.0); MCH 24.7 PG (27-31); MCHC 30.1 g/dL (33-37); MCV 82.1 FL (81-99); MPV 11.3 FL (7.4-10.4); RBC 3.24 XMIL (4.2-5.4); RDW 20.9 % (11.5-14.5); WBC 4.57 X1000 (4.8-10.8)
--- NOTE | 2018-08-24 07:11 | Diag Imaging Result Doc PS360 ---
EXAM: CHEST-PORTABLE 08/24/2018 HISTORY: respiratory failure TECHNIQUE: AP portable at 0513 COMMENT: There is an endotracheal tube with its tip at the thoracic inlet and an NG tube with its tip below the diaphragm. There is cardiomegaly. There is mild interstitial pulmonary edema. The inspiration is less optimal than on 08/23/2018 however there is a left upper lobe is no longer opacified. IMPRESSION: Pulmonary edema and cardiomegaly. Improved atelectasis on the left as described. Electronically signed by Maykel Rodríguez 08/24/2018 7:08 AM
[2018-08-24] MEDS: MUCOMYST 20% INH SCH ×2 (07:40→19:35)
[2018-08-24] MEDS: SANTYL OINT TOP SCH (08:39)
[2018-08-24] MEDS: CENTRUM SILVER PO SCH (08:39)
[2018-08-24] MEDS: ICAR-C PO SCH ×2 (08:39→20:37)
[2018-08-24] MEDS: LEXAPRO PO SCH (08:39)
--- NOTE | 2018-08-24 09:10 | INFECTIOUS DISEASE PROGRESS NO ---
DATE: 08/24/2018 PRESENT ILLNESS: The patient has leg cellulitis and also an ulcerated area on the left heel which has some purulent drainage and is infected also. The pulmonary findings I think are due to pulmonary venous congestion. MEDICATIONS: I stopped the ceftaroline yesterday and placed the patient on Ancef for her cellulitis. PHYSICAL EXAMINATION: Vital Signs: Temperature is 100 degrees, pulse 71, respirations 10, blood pressure 112/64. The patient is intubated and sedated. General: She is an obese, elderly female. She does not appear to be in any acute distress. Head, Eyes, Ears, Nose, and Throat: There is no drainage from the nose or ears. Orotracheal tube is in place. Neck: No stiffness. Lungs: Clear to auscultation. Cardiovascular: Regular heart rate. Abdomen: Soft and apparently nontender. Extremities: Both legs are less erythematous. The ulcer on the left heel does have some yellowish drainage and I am concerned it may be infected. The patient has a PICC in her right arm. The site is not erythematous or swollen. Neurologic: The patient did not respond to verbal stimuli. There was no tremor. LAB AND X-RAY: CBC today shows a white count of 4570, hemoglobin 8, and platelet count 242,000. Blood gases show a pH of 7.41, a PO2 of 117, and a pCO2 of 58. Creatinine is 1.2. GFR is 45. Liver function studies are normal. Bronchial washings and blood cultures are all negative. Chest x-ray shows improvement in the patient's pulmonary edema. ASSESSMENT AND PLAN: The patient has leg cellulitis and an infected left heel ulcer. I plan to continue Ancef pending results of the culture I just obtained from the patient's left heel. COMORBIDITIES: She has chronic obstructive pulmonary disease, diabetes mellitus, chronic leg edema, end-stage renal disease, and morbid obesity. cc: MD Wallace Serrano Jr, MD
[2018-08-24] MEDS: SODIUM CHLORIDE 0.9% INJ SCH ×2 (09:29→20:37)
[2018-08-24] MEDS: PROTONIX IV SCH ×3 (09:29→23:54)
--- NOTE | 2018-08-24 10:44 | PULMONOLOGY PROGRESS NOTE ---
DATE: 08/24/2018 SUBJECTIVE: The patient's sedation is on hold. She is awake, alert, and intermittently following commands. She has no increased work of breathing on a spontaneous breathing trial. She can pull a negative 20 cm pressure and trigger inspiration. OBJECTIVE: Vital signs: Maximum temperature in the last 24 hours 99.7 degrees, blood pressure 112/64, heart rate 71, respiratory rate 10, oxygen saturation 100%. HEENT: Pupils are equal and reactive. Oropharynx is clear. Neck: Supple. Chest: Reveals prolonged expiratory phase with scattered rhonchi. Cardiac: S1, S2. Abdomen: Obese and soft. Extremities: Reveal trace edema. LABORATORIES: Chest x-ray reveals reexpansion of the left lung. Arterial blood gas reveals pH of 7.41, pCO2 of 58, pO2 of 117. Sodium 139, potassium 4.1, chloride 98, bicarbonate 30, BUN 21, creatinine 1.2. IMPRESSION: A 67-year-old with morbid obesity, severe COPD with ongoing tobacco use, acute hypoxemic respiratory failure, acute hypercapnic respiratory failure, pulmonary hypertension, with resolution of atelectasis in the left lung. The patient currently is without increased work of breathing on a spontaneous breathing trial. She will be extubated this morning but will be at high risk for failure requiring reintubation. RECOMMENDATION: 1. Extubation this morning. 2. Will cycle BiPAP at bedtime and p.r.n. 3. Encouraged bronchial hygiene. 4. Antibiotics per Infectious Disease for possible leg cellulitis and infected left heel ulcer. 5. Guarded prognosis as outlined above. Time spent in critical care 30+ minutes. cc: MD Wallace Lowe Jr, MD
[2018-08-24] MEDS: SOLU-MEDROL IV SCH ×2 (12:54→23:55)
--- NOTE | 2018-08-24 13:39 | PROGRESS NOTE ---
DATE: 08/24/2018 Ms. Ndiaye is somewhat alert today. She is on Ventimask. She is off the ventilator now. Her lungs still reveal some pulmonary congestion. Her vital signs are stable. Hemoglobin is 8 g. Left side of the lung shows improvement on the chest x-ray. She has pulmonary edema with cardiomegaly. Overall prognosis is poor. We will continue to watch her closely. -3 cc: MD Wallace Cuellar Jr, MD
[2018-08-24] MEDS: HALDOL IV PRN (14:46)
[2018-08-24] MEDS: LOVENOX SUBQ SCH (20:37)
[2018-08-24] MEDS: ELAVIL PO SCH (20:37)
[2018-08-25] MEDS: HUMALOG SUBQ SCH ×6 (00:36→21:23)
[2018-08-25] MEDS: DUONEB (A & A) INH SCH ×6 (03:17→22:48)
[2018-08-25] MEDS: LOTRIMIN 1% CREAM TOP SCH ×2 (03:39→13:19)
[2018-08-25] MEDS: KEFZOL 2 GM/D5W 2 GM/50 ML IVPB IV SCH (04:20)
[2018-08-25] MEDS: NEURONTIN PO SCH ×3 (04:20→21:23)
[2018-08-25 05:24] LABS: ALLEN TEST YES; BE 9.9 mmoll (-3.0-3.0); BLOOD TYPE ARTERIAL; HCO3-(ACT) 32.6 mmoll (20.0-26.0); METHB 0.9 % (0.0-1.5); O2(CT) 12.1 mL/dL (15.0-23.0); O2HB 95.4 % (95.0-99.0); PO2(98.6) 83 mmHg (60-100); SAMPLE BLOOD; SAO2 97.4 % (95.0-100.0); THB 8.9 g/dL (11.5-17.4); pH(98.6) 7.42 (7.35-7.45)
[2018-08-25 05:25] LABS: MODALITY COOL AEROSOL; PCO2(98.6) 55 mmHg (35-45)
[2018-08-25 05:51] LABS: HEMATOCRIT 28.3 % (37.0-47.0); HEMOGLOBIN 8.4 g/dL (12.0-16.0); MCH 24.8 PG (27-31); MCHC 29.7 g/dL (33-37); MCV 83.5 FL (81-99); MPV 11.2 FL (7.4-10.4); RBC 3.39 XMIL (4.2-5.4); RDW 21.4 % (11.5-14.5); WBC 4.13 X1000 (4.8-10.8)
[2018-08-25 06:12] LABS: AGAP 12; ALB/GLOB RATIO 0.8; ALBUMIN 3.1 g/dL (3.5-5.0); ALKALINE PHOSPHATASE 62 U/L (32-104); BUN 26 mg/dL (8-22); CALCIUM 9.4 mg/dL (8.8-10.2); CHLORIDE 99 mmol/L (98-107); COSMO 302; ESTIMATED GFR 55; GLUCOSE 282 mg/dL (70-104); GOT 17 U/L (10-30); GPT < 5 U/L (10-36); POTASSIUM 4.1 mmol/L (3.5-5.1); SODIUM 144 mmol/L (136-145); TCO2 33 mmol/L (25-35); TOTAL BILIRUBIN < 0.15 mg/dL (0.20-1.00); TOTAL PROTEIN 7.2 g/dL (6.3-8.3)
[2018-08-25] MEDS: LEXAPRO PO SCH (08:02)
[2018-08-25] MEDS: PROTONIX IV SCH ×2 (08:02→21:22)
[2018-08-25] MEDS: SANTYL OINT TOP SCH (08:02)
[2018-08-25] MEDS: CENTRUM SILVER PO SCH (08:02)
[2018-08-25] MEDS: ICAR-C PO SCH ×2 (08:02→21:22)
[2018-08-25] MEDS: MUCOMYST 20% INH SCH ×2 (08:22→20:00)
--- NOTE | 2018-08-25 08:37 | Diag Imaging Result Doc PS360 ---
EXAM: CHEST-PORTABLE INDICATION: respiratory failure TECHNIQUE: One view COMPARISON: 08/24/2018 FINDINGS: The ET tube appears to have been removed during the interval. The NG tube and right PICC line are in stable positions. There is better inspiration on the current study. Given differences in inspiration, the interstitial edema and pulmonary venous congestion are approximately stable. No new consolidation is identified. Cardiac silhouette is stable. IMPRESSION: Better inspiration and apparent removal of the ET tube. Essentially stable chest, otherwise. Electronically signed by Sigifredo Shi 08/25/2018 8:35 AM
--- NOTE | 2018-08-25 09:01 | EKG Report ---
Test Performed on : 08/25/2018 08:05:28 AM Test Reason : afib Blood Pressure : / mmHG Vent. Rate : 091 BPM Atrial Rate : 091 BPM P-R Int : 168 ms QRS Dur : 090 ms QT Int : 344 ms P-R-T Axes : 049 062 076 degrees QTc Int : 423 ms Sinus rhythm. with premature atrial complexes. Nonspecific ST abnormality Abnormal ECG When compared with ECG of 20-AUG-2018 06:42, Nonspecific T wave abnormality no longer evident in Anterior leads Confirmed by Merrick RIOS, Norris Galdamez ([id number]) on 08/25/2018 1:13:00 PM
--- NOTE | 2018-08-25 09:32 | INFECTIOUS DISEASE PROGRESS NO ---
DATE: 08/25/2018 PRESENT ILLNESS: The patient's leg cellulitis has improved quite a bit. She does have an ulcerated area on her left heel which today does not look purulent like it did yesterday. The patient's pulmonary findings I think are due to pulmonary venous congestion and not to pneumonia. MEDICATIONS: Yesterday, ceftaroline was discontinued, and I started the patient on Ancef for her leg cellulitis. PHYSICAL EXAMINATION: Vital Signs: Temperature was 100; now it is 99. Pulse 102, respirations 20, blood pressure 120/66. Generally, this is an obese, elderly female. She seems to be somewhat delirious. Head/eyes/ears/nose/throat: She does not have any drainage coming from the nose or ears. I could not really get a good view of her mouth. Neck: No stiffness. Lungs clear to auscultation. Cardiovascular: Heart rate is irregular. Abdomen is soft and nontender. Extremities: The patient also has a PICC in place in the right arm. The site is not erythematous or swollen. The patient's legs had less erythema, and the patient's heel did not have any purulent drainage. Neurologic: As mentioned above, the patient seems delirious. She did not respond to verbal stimuli. There was no tremor. LABORATORY DATA AND X-RAY: CBC shows a white count of 4130, hemoglobin 8.4, and platelet count 260,000. Blood gases show a pH of 7.42, a PO2 of 83 and a pCO2 of 55. Creatinine is 1. GFR is 55. The patient's left foot heel is growing gram-positive coccus. Chest x-ray shows pulmonary venous congestion. ASSESSMENT AND PLAN: The patient has leg cellulitis which is improving. The heel ulcer looks clean. I am waiting for the patient's culture results and, for now, I will continue Ancef. COMORBIDITIES: The patient has chronic obstructive pulmonary disease, diabetes mellitus, chronic leg edema, end-stage renal disease, and morbid obesity. cc: MD Wallace Serrano Jr, MD
[2018-08-25] MEDS ORDERED: VANCOMYCIN IV PER PHARMACY MISC SCH (10:45)
[2018-08-25] MEDS ORDERED: VANCOMYCIN 2,000 MG in NS 500 ML IV ONE (11:00)
--- NOTE | 2018-08-25 11:07 | INFECTIOUS DISEASE PROGRESS NO ---
DATE: 08/25/2018 ADDENDUM: The micro lab just called and notified us that the patient is growing presumptive methicillin-resistant Staphylococcus aureus from her heel culture I took yesterday. I have discontinued Ancef and placed the patient on vancomycin intravenously. cc: MD Wallace Serrano Jr, MD
[2018-08-25] MEDS: SOLU-MEDROL IV SCH (11:26)
[2018-08-25] MEDS: LASIX IV SCH (13:05)
--- NOTE | 2018-08-25 13:37 | PULMONOLOGY PROGRESS NOTE ---
DATE: 08/25/2018 SUBJECTIVE: The patient is arousable to alert. She has some confusion. She will respond to questions. She has a marginal cough effort. The patient was ordered BiPAP last evening, but it was accidentally canceled and will be reordered. OBJECTIVE: The patient has been afebrile for the last 24 hours, blood pressure 112/75, heart rate 91, respiratory rate 20, oxygen saturation 99%. HEENT: Pupils are equal and reactive. Oropharynx is clear. Neck is supple. Chest reveals coarse rhonchi bilaterally with prolonged expiratory phase. Cardiac: S1, S2. Abdomen is soft. Extremities revealed trace to 1+ peripheral edema. DIAGNOSTIC DATA: Chest x-ray reveals removal of endotracheal tube with better inspiration. No consolidation identified. Microbiology reveals a gram-positive cocci from the left foot. No new data from the bronchial washings. Arterial blood gas reveals a pH of 7.42, pCO2 of 55, pO2 of 83. Sodium is 144, potassium 4.1, chloride 99, bicarbonate 33, BUN is 26, creatinine 1.0. IMPRESSION: A 67 year old with morbid obesity, severe COPD, intermittent atelectasis of the left lung, ongoing tobacco use, acute hypoxemic and acute hypercapnic respiratory failure, with pulmonary hypertension. The patient has been successfully extubated and is doing well 24 hours off mechanical ventilation. RECOMMENDATIONS: 1. Cycle BiPAP nightly at bedtime and p.r.n. 2. Continue bronchial hygiene. 3. Antibiotics per Infectious Disease for cellulitis and infected heel ulcer. 4. Continue tube feeds. 5. Smoking cessation and weight loss will be strongly encouraged. cc: MD Wallace Lowe Jr, MD
--- NOTE | 2018-08-25 14:33 | PROGRESS NOTE ---
DATE: 08/25/2018 SUBJECTIVE: Ms. Ndiaye extubated yesterday. The patient is doing better. She is tolerating oxygen via nasal cannula. When she talks, she does make sense most of the time. She is ambulating all 4 limbs. Patient does have decubitus on the right heel. Wound culture grew MRSA. The patient is on vancomycin. Patient is also on antibiotics for pneumonia. She denied any chest pain, palpitations, complaining of dull headache. No nausea or vomiting. PAST MEDICAL HISTORY: Her past medical history is significant for: 1. Morbid obesity. 2. Chronic obstructive pulmonary disease. 3. Diabetes mellitus. 4. Hypertension. 5. Chronic hypoxemic respiratory failure. 6. History of DVT. 7. Chronic lymphedema. 8. Obesity. 9. Moderate to severe pulmonary hypertension. Her history, physical, Pulmonary consult and ID consult noted. OBJECTIVE: Vital signs: Blood pressure 96/59, pulse 104, respiration 18, temperature 97.7 degrees. Neck: Supple. No JVD. Lungs: Decreased air entry both the bases. CVS: S1 and S2 heard. Abdomen: Soft, globular. Bowel sounds present. Extremities: Patient does have a dressed wound on the right heel. Minimal swelling in both the legs. [employer]: Alert, awake, answering questions fairly well. LABORATORY DATA: Lab data done today reveals hemoglobin 8.4, hematocrit 28.3, WBC count 4.13, platelet 260. Blood gas: The pH is 7.42, pCO2 of 55, PO2 83. Electrolytes: BUN 26, creatinine 1, potassium 4.1. MEDICAL PROBLEMS: 1. Status post respiratory failure and mechanical ventilation. The patient is on nasal cannula doing well. 2. Pneumonia. 3. Decubitus ulcer on the right heel. 4. Hypercapnic respiratory failure. 5. Pulmonary hypertension. 6. Chronic obstructive pulmonary disease. 7. Morbid obesity. 8. Methicillin-resistant Staphylococcus aureus on the right heel wound. 9. Anemia most likely of chronic disease. Overall prognosis fair to guarded. The patient is clinically improving. We will continue current treatment and close observation. cc: MD Wallace Lara Jr, MD
[2018-08-25] MEDS: SODIUM CHLORIDE 0.9% INJ SCH (21:22)
[2018-08-25] MEDS: LOVENOX SUBQ SCH (21:22)
[2018-08-25] MEDS: ELAVIL PO SCH (21:23)
[2018-08-26] MEDS: HUMALOG SUBQ SCH ×6 (01:10→19:59)
[2018-08-26] MEDS: LASIX IV SCH (01:11)
[2018-08-26] MEDS: SOLU-MEDROL IV SCH ×3 (01:11→23:55)
[2018-08-26] MEDS: LOTRIMIN 1% CREAM TOP SCH ×2 (01:15→13:42)
[2018-08-26] MEDS: DUONEB (A & A) INH SCH ×6 (02:53→23:32)
[2018-08-26] MEDS: NEURONTIN PO SCH ×3 (03:31→19:57)
[2018-08-26 04:39] LABS: ALLEN TEST YES; BE 18.9 mmoll (-3.0-3.0); BLOOD TYPE ARTERIAL; HCO3-(ACT) 39.7 mmoll (20.0-26.0); O2(CT) 13.5 mL/dL (15.0-23.0); PO2(98.6) 106 mmHg (60-100); SAMPLE BLOOD; SAO2 98.4 % (95.0-100.0); THB 9.9 g/dL (11.5-17.4)
[2018-08-26 04:41] LABS: MODALITY BI PAP; PCO2(98.6) 57 mmHg (35-45)
[2018-08-26 06:25] LABS: BASO# 0.05 X1000 (0.0-0.2); BASO% 0.9 % (0.0-0.8); EOS# 0.01 X1000 (0.0-0.7); EOS% 0.2 % (0.0-10.0); HEMATOCRIT 32.3 % (37.0-47.0); HEMOGLOBIN 9.4 g/dL (12.0-16.0); IMM GRAN# 0.39 X1000 (0.0-0.04); IMM GRAN% 6.8 % (0.0-0.5); LYMPH% 15.6 % (20.5-51.1); MCH 24.4 PG (27-31); MCHC 29.1 g/dL (33-37); MCV 83.7 FL (81-99); MONO# 0.71 X1000 (0.11-0.59); MONO% 12.3 % (1.7-9.3); MPV 11.4 FL (7.4-10.4); NEUT# 3.71 X1000 (1.4-6.5); NEUT% 64.2 % (42.2-75.2); PLT 281 X1000 (130-400); RBC 3.86 XMIL (4.2-5.4); RDW 21.8 % (11.5-14.5); WBC 5.77 X1000 (4.8-10.8)
[2018-08-26 06:39] LABS: MAGNESIUM 2.1 mg/dL (1.5-2.7); PHOSPHORUS 3.1 mg/dL (2.7-4.5); PREALBUMIN 29.3 mg/dL (20-40)
[2018-08-26 06:49] LABS: AGAP 15; ALB/GLOB RATIO 0.7; ALBUMIN 3.1 g/dL (3.5-5.0); ALKALINE PHOSPHATASE 63 U/L (32-104); BUN 25 mg/dL (8-22); CALCIUM 9.1 mg/dL (8.8-10.2); CHLORIDE 93 mmol/L (98-107); COSMO 300; CREATININE 0.9 mg/dL (0.5-0.9); ESTIMATED GFR > 60; GLUCOSE 290 mg/dL (70-104); GOT 30 U/L (10-30); GPT 7 U/L (10-36); POTASSIUM 3.4 mmol/L (3.5-5.1); SODIUM 143 mmol/L (136-145); TCO2 35 mmol/L (25-35); TOTAL BILIRUBIN 0.21 mg/dL (0.20-1.00); TOTAL PROTEIN 7.5 g/dL (6.3-8.3)
[2018-08-26 07:08] LABS: LYMPHS 12 % (21-51); MONO 22 % (1-9); SEGS 66 % (42-75)
[2018-08-26] MEDS ORDERED: POTASSIUM CHLORIDE 20% LIQUID PO ONE ×2 (07:15→07:28)
[2018-08-26] MEDS: MUCOMYST 20% INH SCH ×2 (07:17→19:45)
--- NOTE | 2018-08-26 07:17 | Diag Imaging Result Doc PS360 ---
EXAM: CHEST-PORTABLE 08/26/2018 HISTORY: respiratory failure TECHNIQUE: AP portable at 0544 COMMENT: The NG tube and right PICC line remain in place. There is cardiomegaly. The inspiration is less optimal than on 08/25/2018, however the pulmonary edema which was present previously has improved slightly. IMPRESSION: Improved pulmonary edema. Electronically signed by Maykel Rodríguez 08/26/2018 7:15 AM
[2018-08-26] MEDS: CENTRUM SILVER PO SCH (08:25)
[2018-08-26] MEDS: LEXAPRO PO SCH (08:25)
[2018-08-26] MEDS: ICAR-C PO SCH ×2 (08:25→19:59)
[2018-08-26] MEDS: PROTONIX IV SCH ×2 (08:25→19:59)
[2018-08-26] MEDS: SANTYL OINT TOP SCH (08:27)
--- NOTE | 2018-08-26 08:29 | PROGRESS NOTE ---
DATE: 08/26/2018 SUBJECTIVE: The patient says she is feeling a little bit better. She is a little confused, thought this was . This is Friday which is close but could not tell me the year. She did carry on conversation. OBJECTIVE: Blood pressure 119/67, respirations 23, pulse 96. Temp 98.1 degrees Fahrenheit. Weight is 224 pounds 3.2 ounces.HEENT: She is normocephalic. EOMS intact. PERRLA. Throat clear. Lungs: Have scattered rhonchi. Heart: Regular rate and rhythm without murmurs, gallops, friction rubs. Abdomen: Soft. Active bowel sounds. No organomegaly or tenderness. Does have an NG tube down. He has been on BiPAP but right now is off. Extremities: Cellulitis seems to be improving in the lower extremities. Less redness there. She has an ulceration on her left heel that seems to be growing MRSA, at least that is presumed MRSA. The patient has stayed a little confused. Blood gas today has a pH of 7.50, pCO2 57, PO2 of 106 on 40% FiO2 while she was on BiPAP. White count 5770, hemoglobin 9.4, potassium a little low at 3.4, glucose 290. ASSESSMENT: 1. Respiratory arrest. 2. Pulmonary edema seen on chest x-ray. 3. Cellulitis. 4. Ulceration on the left heel with presumed Methicillin-resistant Staphylococcus aureus. 5. Adult onset diabetes mellitus. 6. Pickwickian syndrome. 7. Morbid obesity. 8. Tobacco addiction. 9. Chronic obstructive pulmonary disease. 10. The patient also has had a history of DVT. 11. Chronic lymph edema. 12. Hypertension. 13. Pulmonary hypertension. 14. She also has anemia, probably of chronic disease. PLAN: We will continue support. Condition guarded. The patient is now on vancomycin. Appreciate help from all the specialists. cc: Wallace Meyer Jr, MD
--- NOTE | 2018-08-26 09:21 | INFECTIOUS DISEASE PROGRESS NO ---
DATE: 08/26/2018 PRESENT ILLNESS: The patient has bilateral leg cellulitis. A recent culture taken from her heel grew methicillin-resistant Staphylococcus aureus. MEDICATIONS: Yesterday, I placed the patient on vancomycin when we were notified by the microbiology lab that the culture I took from the patient's heel was growing methicillin-resistant Staphylococcus aureus. PHYSICAL EXAMINATION: Vital Signs: Temperature is 98.2 degrees, pulse 88, respirations 22, blood pressure 119/67. General: This is an obese, elderly female. Her sensorium seems to be slightly improved today. She is able to carry on a conversation. Head, Eyes, Ears, Nose, and Throat: No drainage noted from the nose or ears. She does not have any white patches on her tongue. Neck: No meningismus. Lungs: Clear to auscultation. Cardiovascular: Heart rate is irregular. Abdomen: Soft and nontender. Extremities: The patient has a PICC in her right arm. The site is not swollen or tender. Both legs have less erythema and no purulent drainage. Neurologic: The patient is lethargic. She did respond to verbal stimuli, however. LAB AND X-RAY: CBC shows a white count of 5770, hemoglobin 9.4, and platelet count 281,000. Patient's blood gases show a pH of 7.5, a PO2 of 106, pCO2 of 57. Creatinine is 0.9. GFR is greater than 60. Liver function studies are normal. ASSESSMENT AND PLAN: The patient has methicillin-resistant Staphylococcus aureus leg cellulitis. My plan is to continue with vancomycin. COMORBIDITIES: Chronic obstructive pulmonary disease, diabetes mellitus, chronic leg edema, end- stage renal disease, and morbid obesity. cc: MD Wallace Serrano Jr, MD
[2018-08-26] MEDS: ULTRAM PO PRN (19:57)
[2018-08-26] MEDS: ELAVIL PO SCH (19:59)
[2018-08-26] MEDS: LOVENOX SUBQ SCH (19:59)
[2018-08-26] MEDS: SODIUM CHLORIDE 0.9% INJ SCH (19:59)
[2018-08-26] MEDS ORDERED: LASIX IV ONE (22:09)
[2018-08-26] MEDS: VANCOMYCIN 1,500 MG in NS 250 ML IV SCH (23:55)
[2018-08-27] MEDS: HUMALOG SUBQ SCH ×6 (00:08→21:12)
[2018-08-27] MEDS: LOTRIMIN 1% CREAM TOP SCH ×2 (02:26→13:19)
[2018-08-27] MEDS: NEURONTIN PO SCH ×4 (03:34→19:52)
[2018-08-27] MEDS: DUONEB (A & A) INH SCH ×6 (03:50→23:28)
[2018-08-27 05:05] LABS: ALLEN TEST YES; BE 19.6 mmoll (-3.0-3.0); BLOOD TYPE ARTERIAL; HCO3-(ACT) 40.2 mmoll (20.0-26.0); METHB 0.5 % (0.0-1.5); O2(CT) 13.9 mL/dL (15.0-23.0); PO2(98.6) 85 mmHg (60-100); SAMPLE BLOOD; THB 10.2 g/dL (11.5-17.4); pH(98.6) 7.54 (7.35-7.45)
[2018-08-27 05:07] LABS: MODALITY BI PAP; PCO2(98.6) 52 mmHg (35-45)
[2018-08-27 05:18] LABS: HEMATOCRIT 32.4 % (37.0-47.0); HEMOGLOBIN 9.6 g/dL (12.0-16.0); MCH 24.9 PG (27-31); MCHC 29.6 g/dL (33-37); MCV 84.2 FL (81-99); MPV 11.4 FL (7.4-10.4); RBC 3.85 XMIL (4.2-5.4); WBC 5.77 X1000 (4.8-10.8)
[2018-08-27 05:34] LABS: AGAP 9; ALB/GLOB RATIO 0.8; ALBUMIN 3.3 g/dL (3.5-5.0); ALKALINE PHOSPHATASE 63 U/L (32-104); BUN 26 mg/dL (8-22); CALCIUM 9.9 mg/dL (8.8-10.2); CHLORIDE 92 mmol/L (98-107); COSMO 299; CREATININE 0.8 mg/dL (0.5-0.9); ESTIMATED GFR > 60; GLUCOSE 329 mg/dL (70-104); GOT 28 U/L (10-30); GPT 10 U/L (10-36); POTASSIUM 3.8 mmol/L (3.5-5.1); SODIUM 141 mmol/L (136-145); TCO2 40 mmol/L (25-35); TOTAL BILIRUBIN 0.25 mg/dL (0.20-1.00); TOTAL PROTEIN 7.5 g/dL (6.3-8.3)
[2018-08-27 05:57] LABS: PHOSPHORUS 3.6 mg/dL (2.7-4.5)
--- NOTE | 2018-08-27 06:55 | PULMONOLOGY PROGRESS NOTE ---
DATE: 08/26/2018 SUBJECTIVE: The patient is awake, alert. She is conversant. She has no increased work of breathing. She has a marginal cough effort. OBJECTIVE: VITAL SIGNS: The patient has been afebrile for the last 24 hours. Blood pressure 116/76, heart rate 93, respiratory rate 14, oxygen saturation 96% on 4 L per nasal cannula. HEENT: Pupils are equal and reactive. Oropharynx is clear. NECK: Supple. CHEST: Reveals prolonged expiratory phase with scattered rhonchi. Wheezing has diminished. CARDIAC: Distant heart sounds. Normal S1, normal S2. ABDOMEN: Soft, without hepatosplenomegaly. EXTREMITIES: Reveal cellulitis involving both legs with a heel ulcer. LABORATORIES: Chest x-ray reveals cardiomegaly with shallow inspiration but decrease in pulmonary edema. Sodium 143, potassium 3.4, chloride 93, bicarbonate 35, BUN 25, creatinine 0.9. Arterial blood gas, pH 7.50, PCO2 of 57, PO2 of 106. IMPRESSION: 68-year-old with morbid obesity, severe COPD, fluctuating atelectasis in the left lung, ongoing tobacco use at the time of admission, acute hypoxemic and acute hypercapnic respiratory failure with pulmonary hypertension. Patient also has bilateral lower extremity cellulitis. Clinically, she is improving and stable off mechanical ventilation. RECOMMENDATIONS: 1. Continue to cycle BiPAP at bedtime and p.r.n. 2. Maintain balance to prevent fluid overload. 3. Wean oxygen as tolerated. 4. Continue antibiotics per Infectious Disease. 5. Initiate physical therapy. 6. Patient likely will require rehab at the time of discharge. cc: MD Wallace Lowe Jr, MD
--- NOTE | 2018-08-27 07:07 | Diag Imaging Result Doc PS360 ---
EXAM: CHEST-PORTABLE HISTORY: respiratory failure TECHNIQUE: Chest, single view COMPARISON: 08/26/2018 FINDINGS: Poor inspiratory effort. Heart remains enlarged. There is pulmonary edema. There may be a tiny left pleural effusion. No consolidation. No change in the right-sided PICC line. IMPRESSION: No interval improvement. Electronically signed by Frederic Lynn 08/27/2018 7:04 AM
[2018-08-27] MEDS: MUCOMYST 20% INH SCH ×2 (07:23→19:36)
[2018-08-27] MEDS: SODIUM CHLORIDE 0.9% INJ SCH (08:41)
[2018-08-27] MEDS: PROTONIX IV SCH ×2 (08:41→20:57)
[2018-08-27] MEDS: CENTRUM SILVER PO SCH (08:41)
[2018-08-27] MEDS: ICAR-C PO SCH ×2 (08:41→20:57)
[2018-08-27] MEDS: LEXAPRO PO SCH (08:41)
[2018-08-27] MEDS: SANTYL OINT TOP SCH (09:00)
--- NOTE | 2018-08-27 09:05 | PROGRESS NOTE ---
DATE: 08/27/2018 SUBJECTIVE: The patient has no complaints. She says she feels better. She seems a little confused when I have asked her questions. OBJECTIVE: Vital signs: Blood pressure is 132/61, respirations 18, pulse 81, oxygen saturation is 98%. Temp is 97.9 degrees Fahrenheit. She is on nasal cannula at 4 liters this time. HEENT: She is normocephalic. EOMS intact. PERRLA. Throat clear. Lungs: Have scattered wheezes, a little worse on the right side. Heart: Regular rate and rhythm without murmurs, gallops, friction rubs. Abdomen: Soft. Active bowel sounds. No organomegaly or tenderness. DIAGNOSTIC DATA: Blood pressure is holding up better now. White count is 5770, hemoglobin 9.6, hematocrit 32.4 platelet count 274,000. Blood gas shows a pH of 7.54, pCO2 of 52, pO2 of 85. That was done on BiPAP. Potassium up to 3.8, was 3.4 yesterday. Rest of electrolytes essentially normal. ASSESSMENT: 1. Respiratory distress. 2. Chronic obstructive pulmonary disease. 3. Pneumonia now clearing 4. Cellulitis, lower extremities. 5. Methicillin-resistant Staphylococcus aureus in wound on left foot. 6. Atelectasis, left lung. 7. Diabetes mellitus. PLAN: We will continue care. Patient seems to be slowly improving. Appreciate the help from all the specialists. cc: Wallace Meyer Jr, MD
--- NOTE | 2018-08-27 09:36 | INFECTIOUS DISEASE PROGRESS NO ---
DATE: 08/27/2018 PRESENT ILLNESS: The patient has methicillin-resistant Staphylococcus aureus bilateral leg cellulitis. MEDICATIONS: The patient has been on vancomycin now for 1 day. PHYSICAL EXAMINATION: Vital Signs: Temperature is 98 degrees, pulse 84, respirations 18, blood pressure 132/61. General: This is an obese, elderly female. She is alert and talking now. She talks in a very hoarse voice. Head, Eyes, Ears, Nose, and Throat: No drainage noted from the nose or ears. I did not see any white patches on her tongue. Neck: No stiffness. Lungs: Bilateral rhonchi. Cardiovascular: Heart rate is irregular. Abdomen: Soft and nontender. Extremities: The patient has a PICC in her right arm. The site is not erythematous or draining. The patient's legs are less erythematous and edematous. Neurologic: The patient is lethargic but she is able to respond to verbal stimuli and she can talk. LAB AND X-RAY: Chest x-ray shows pulmonary edema. Creatinine is 0.8. GFR is greater than 60. Blood gases show a pH of 7.54, PO2 of 85, and a pCO2 of 52. CBC shows a white count of 5770, hemoglobin 9.6, platelet count of 274,000. Liver function studies are normal. ASSESSMENT AND PLAN: The patient has methicillin-resistant Staphylococcus aureus leg cellulitis. I plan to continue vancomycin. Also, we are elevating the patient's legs as much as possible. COMORBIDITIES: COPD, diabetes mellitus, chronic leg edema, end-stage renal disease, and morbid obesity. cc: MD Wallace Serrano Jr, MD
[2018-08-27] MEDS: SOLU-MEDROL IV SCH ×2 (11:23→23:13)
--- NOTE | 2018-08-27 15:43 | PULMONOLOGY PROGRESS NOTE ---
DATE: 08/27/2018 SUBJECTIVE: The patient is awake, alert, and conversant. She has no increased work of breathing. She reports she is hungry. OBJECTIVE: The patient has been afebrile for the last 24 hours. Blood pressure 104/59. Heart rate 100. Respiration rate 16. Oxygen saturation 95% on 4 L per nasal cannula. HEENT: Pupils are equal and reactive. Oropharynx is clear. Neck is supple. Chest reveals prolonged expiratory phase with faint crackles in the bases. No wheezing. No rhonchi. Cardiac exam: S1-S2. Abdomen is obese and soft. Extremities revealed cellulitis of the lower extremities. LABORATORIES: Chest x-ray reveals tiny left effusion but no consolidation. There is increased vascular markings consistent with pulmonary vascular congestion. White blood count 5.77, hemoglobin 9.6. Platelet count 274,000. Chemistry: Sodium 141, potassium 3.8, chloride 92, bicarbonate 40. BUN 26, creatinine 0.8. IMPRESSION: A 68-year-old with morbid obesity, severe chronic obstructive pulmonary disease, acute hypoxemic and acute hypercapnic respiratory failure and pulmonary hypertension. The patient is currently being treated for bilateral cellulitis. She is stable off mechanical ventilation. PLAN: 1. Continue oxygen and BiPAP for respiratory failure. 2. Maintain intake and output fluid balance. 3. Initiate physical therapy. 4. Continue antibiotics per Infectious Disease. 5. Pull in NG-tube and attempt oral diet. 6. Anticipate the need for rehab at the time of discharge. cc: MD Wallace Lowe Jr, MD
[2018-08-27] MEDS: ELAVIL PO SCH (20:57)
[2018-08-27] MEDS: LOVENOX SUBQ SCH (20:57)
[2018-08-28] MEDS: HUMALOG SUBQ SCH ×6 (01:10→20:36)
[2018-08-28] MEDS: LOTRIMIN 1% CREAM TOP SCH ×2 (01:15→14:02)
[2018-08-28] MEDS: DUONEB (A & A) INH SCH ×6 (03:27→23:29)
[2018-08-28] MEDS: NEURONTIN PO SCH ×3 (04:05→19:33)
[2018-08-28 04:27] LABS: ALLEN TEST YES; BE 18.1 mmoll (-3.0-3.0); BLOOD TYPE ARTERIAL; METHB 0.7 % (0.0-1.5); O2(CT) 14.4 mL/dL (15.0-23.0); O2HB 96.3 % (95.0-99.0); PO2(98.6) 96 mmHg (60-100); SAMPLE BLOOD; SAO2 98.1 % (95.0-100.0); THB 10.5 g/dL (11.5-17.4)
[2018-08-28 04:28] LABS: MODALITY BI PAP; PCO2(98.6) 56 mmHg (35-45)
[2018-08-28 04:58] LABS: HEMATOCRIT 33.2 % (37.0-47.0); HEMOGLOBIN 9.9 g/dL (12.0-16.0); MCH 24.6 PG (27-31); MCHC 29.8 g/dL (33-37); MCV 82.4 FL (81-99); MPV 11.8 FL (7.4-10.4); RBC 4.03 XMIL (4.2-5.4); WBC 5.67 X1000 (4.8-10.8)
[2018-08-28 05:19] LABS: AGAP 11; ALKALINE PHOSPHATASE 69 U/L (32-104); BUN 25 mg/dL (8-22); CALCIUM 9.6 mg/dL (8.8-10.2); CHLORIDE 93 mmol/L (98-107); COSMO 294; CREATININE 0.7 mg/dL (0.5-0.9); ESTIMATED GFR > 60; GLUCOSE 274 mg/dL (70-104); GOT 26 U/L (10-30); GPT 13 U/L (10-36); POTASSIUM 3.6 mmol/L (3.5-5.1); SODIUM 140 mmol/L (136-145); TCO2 37 mmol/L (25-35); TOTAL PROTEIN 6.5 g/dL (6.3-8.3)
--- NOTE | 2018-08-28 06:50 | Diag Imaging Result Doc PS360 ---
EXAM: CHEST-PORTABLE HISTORY: respiratory failure TECHNIQUE: Portable chest single view COMPARISON: 08/27/2018 FINDINGS: Poor inspiratory effort. Right-sided PICC line in good position. Heart is enlarged and there is pulmonary edema. No consolidation. No pleural effusions identified. IMPRESSION: No interval improvement. Electronically signed by Frederic Lynn 08/28/2018 6:47 AM
[2018-08-28] MEDS: MUCOMYST 20% INH SCH ×2 (07:52→19:49)
[2018-08-28] MEDS: ICAR-C PO SCH ×2 (08:36→20:35)
[2018-08-28] MEDS: LEXAPRO PO SCH (08:36)
[2018-08-28] MEDS: CENTRUM SILVER PO SCH (08:36)
[2018-08-28] MEDS: SODIUM CHLORIDE 0.9% INJ SCH (08:36)
[2018-08-28] MEDS: PROTONIX IV SCH ×2 (08:36→20:35)
--- NOTE | 2018-08-28 10:09 | INFECTIOUS DISEASE PROGRESS NO ---
DATE: 08/28/2018 PRESENT ILLNESS: Ms. Ndiaye has a methicillin-resistant Staph aureus cellulitis to her bilateral lower extremities. There is also a candidal, erythematous rash to her intertriginous areas. MEDICATIONS: Today is day 3 of IV vancomycin per pharmacy dosing. PHYSICAL EXAM: Vital Signs: Temperature is 98.7, pulse rate is 103, respiratory rate 21, blood pressure 103/63. O2 saturation is 99% on 5 L nasal cannula. General: This is a chronically ill- appearing, elderly female. She is sitting up in the bed, drinking liquids much of which is on her gown. HEENT: Atraumatic, normocephalic. Oral mucous membranes are pink and moist. Conjunctivae are pink. Neck: Supple. Trachea is midline. Cardiovascular: Irregularly, irregular. Pedal pulses are diminished bilaterally. Respiratory: Lung sounds are clear in the upper lobes. Diminished in the bases. Abdomen: Soft, obese, and nontender. Bowel sounds are active. Neurologic: She is awake, alert, and oriented to person and place. Extremities: Generally weak with some mild edema noted. There is a PICC line in place to her right upper arm. The site has no erythema, edema, or drainage. There is erythema noted to bilateral calves. Integumentary: There are some areas of erythema to the intertriginous areas below her breasts and abdominal fat folds. LABORATORY AND X-RAY: Today her white count is 5.67, hemoglobin 9.9, platelet count 279,000. This morning on a 40% BiPAP, her pH was 7.5, pCO2 56, pO2 96, HCO3 is 39. Creatinine is 0.7, estimated GFR is greater than 60. AST 26, ALT 13, alkaline phosphatase 69. Her left foot has grown a methicillin-resistant Staph aureus. Her chest x-ray today showed no interval improvement with pulmonary edema and no consolidation. ASSESSMENT AND PLAN: Ms. Ndiaye has a methicillin-resistant Staphylococcus aureus cellulitis to her lower extremities. We will continue her vancomycin at this point, and keep her legs elevated as much as possible. Unfortunately, fluconazole interacts with several of her medications, so we will order Micafungin 100mg IV daily for the erythematous rash to her intertriginous areas. These plans have been discussed with and recommended by Dr. Polanco. COMORBIDITIES: For Ms. Ndiaye include that she is elderly with diabetes mellitus , chronic lower extremity edema, and chronic obstructive pulmonary disease. Dictated by TOM Addison for Sumit Polanco MD This chart was documented by, TOM Addison and accurately reflects the services performed, treatment plan and medical decisions as attested by the providers signature Sumit Polanco MD. cc: MD Wallace Serrano Jr, MD MTDD
[2018-08-28] MEDS: MYCAMINE 100 MG in NS 100 ML IV SCH (10:40)
[2018-08-28] MEDS: VANCOMYCIN 1,500 MG in NS 250 ML IV SCH (10:40)
[2018-08-28] MEDS: SANTYL OINT TOP SCH (10:48)
[2018-08-28] MEDS: SOLU-MEDROL IV SCH (11:27)
[2018-08-28] MEDS: LANOXIN IV SCH ×2 (11:27→14:01)
--- NOTE | 2018-08-28 11:39 | EKG Report ---
Test Performed on : 08/28/2018 11:31:36 AM Test Reason : afib Blood Pressure : / mmHG Vent. Rate : 098 BPM Atrial Rate : 129 BPM P-R Int : 000 ms QRS Dur : 096 ms QT Int : 360 ms P-R-T Axes : 000 042 069 degrees QTc Int : 459 ms Atrial fibrillation. with premature ventricular or aberrantly conducted complexes. Nonspecific ST and T wave abnormality Abnormal ECG When compared with ECG of 25-AUG-2018 08:05, Atrial fibrillation. has replaced Sinus rhythm. Confirmed by Shama RIOS, Carlos Benoit ([id number]) on 08/29/2018 8:44:15 AM
--- NOTE | 2018-08-28 12:19 | PROGRESS NOTE ---
DATE: 08/28/2018 SUBJECTIVE: The patient is feeling a little bit better. She is more alert. She carries on a good conversation without confusion. OBJECTIVE: Vital signs: Blood pressure is 112/79, respirations 20, pulse 72, temperature 98.7 degrees Fahrenheit. Pulse has been ranging; however, as she went into atrial fibrillation which she has had in the past. She has had GI bleed in the past, and did not go back for her complete GI workup as requested. Right now, she is comfortable. Since she has also had some hypotension, we would probably have to give her digoxin. As matter of fact, looking through her chart right now, I see where Cardiology went ahead and started some IV digoxin for her to slow her heart rate down. HEENT: She is normocephalic. EOMS intact. PERRLA. Throat clear. Lungs: Sound fairly clear to auscultation. Chest x-ray still shows a little pulmonary edema and mild cardiomegaly. Heart: Irregularly, irregular without murmurs, gallops, or friction rubs. Abdomen: Soft. Active bowel sounds. No organomegaly or tenderness. Neurological: Cranial nerves 2-12 intact grossly. Sensory and motor intact. Reflexes 1+ all. Skin: The patient has cellulitis of the lower extremities seem to be improving. Her wound on her left heel is improving. ASSESSMENT: 1. Respiratory distress. 2. Exacerbation of chronic obstructive pulmonary disease. 3. Pneumonia, now resolved. 4. Cellulitis of lower extremities. 5. Methicillin-resistant Staphylococcus aureus infected left heel ulceration. 6. Yeast infection in her inguinal areas. 7. New onset atrial fibrillation. She has had this in the past, but has been in normal sinus rhythm until today for some time now. SECONDARY DIAGNOSES: 1. Lymphedema. 2. Diabetes mellitus. 3. Morbid obesity. 4. Tobacco addiction. 5. Pickwickian syndrome. PLAN: We will continue to support. Appreciate Cardiology seeing the patient for the atrial fibrillation. Appreciate all the consultants. Helping with her care. cc: Wallace Meyer Jr, MD
[2018-08-28] MEDS ORDERED: LOPRESSOR IV PRN (13:08)
--- NOTE | 2018-08-28 13:32 | PROGRESS NOTE ---
DATE: 08/28/2018 SUBJECTIVE: The patient reported to have some episodic tachycardia. She has been making gradual progress from a pulmonary standpoint. She denies any palpitations or chest discomfort. OBJECTIVE: Blood pressure 112/79, heart rate 72, with ECG monitor showing sinus rhythm with frequent premature supraventricular complexes as well as brief irregular bursts of tachycardia that appeared to be probably multifocal atrial tachycardia. The patient has not manifested sustained tachycardia. Auscultation of the chest reveals a few faint wheezes. Oxygen saturation 99 to 100 percent on nasal cannula oxygen at 4 L/minute. There is no significant jugular venous distention. Auscultation of the chest reveals diminished breath sounds diffusely. No wheezes could be appreciated. Cardiac exam reveals a regular rate and rhythm without appreciable murmur or gallop. Extremities without edema. LABORATORY DATA: White blood cell count of 5.67, hematocrit 33.2, hemoglobin 9.9. Platelet count 279,000. Sodium 140, potassium 3.6, chloride 93, carbon dioxide 37. BUN 25, creatinine 0.7, glucose 274. IMPRESSION: 1. Recovering hypoxemic hypercapnic respiratory failure in the setting of severe chronic obstructive pulmonary disease and morbid obesity. 2. Recent persistent atrial fibrillation during hospital course. The patient has converted back to sinus rhythm with frequent premature supraventricular complexes and occasional brief instances of what appears to be multifocal atrial tachycardia. 3. Remote history of deep venous thrombosis on the right side. There has been no evidence of recurrence. 4. Diabetes mellitus, type 2. 5. Hypertension. RECOMMENDATIONS: 1. Low-dose diltiazem as tolerated. 2. Can use some IV metoprolol as needed if sustained tachycardia manifested. 3. Aspirin p.o. daily as tolerated. cc: MD Wallace Farfan Jr, MD
[2018-08-28] MEDS: ASPIRIN PO SCH (14:01)
[2018-08-28] MEDS: CARDIZEM PO SCH (18:13)
[2018-08-28] MEDS: LOVENOX SUBQ SCH (20:35)
[2018-08-28] MEDS: ELAVIL PO SCH (20:35)
[2018-08-29] MEDS: HUMALOG SUBQ SCH ×6 (00:51→20:04)
[2018-08-29] MEDS: SOLU-MEDROL IV SCH ×2 (00:53→14:00)
[2018-08-29] MEDS: LOTRIMIN 1% CREAM TOP SCH ×2 (03:15→14:00)
[2018-08-29] MEDS: NEURONTIN PO SCH ×3 (03:33→20:04)
[2018-08-29] MEDS: DUONEB (A & A) INH SCH ×6 (03:39→23:32)
[2018-08-29 05:08] LABS: HEMATOCRIT 33.1 % (37.0-47.0); HEMOGLOBIN 10.1 g/dL (12.0-16.0); MCH 25.1 PG (27-31); MCHC 30.5 g/dL (33-37); MCV 82.3 FL (81-99); MPV 11.1 FL (7.4-10.4); RBC 4.02 XMIL (4.2-5.4); RDW 21.4 % (11.5-14.5); WBC 5.76 X1000 (4.8-10.8)
[2018-08-29 05:16] LABS: ALLEN TEST YES; BE 13.4 mmoll (-3.0-3.0); BLOOD TYPE ARTERIAL; HCO3-(ACT) 35.3 mmoll (20.0-26.0); METHB 0.4 % (0.0-1.5); O2(CT) 13.9 mL/dL (15.0-23.0); O2HB 94.7 % (95.0-99.0); PO2(98.6) 73 mmHg (60-100); SAMPLE BLOOD; SAO2 97.1 % (95.0-100.0); THB 10.4 g/dL (11.5-17.4); pH(98.6) 7.48 (7.35-7.45)
[2018-08-29 05:18] LABS: MODALITY BI PAP; PCO2(98.6) 52 mmHg (35-45)
[2018-08-29 05:37] LABS: AGAP 15; ALBUMIN 3.1 g/dL (3.5-5.0); BUN 23 mg/dL (8-22); CALCIUM 9.5 mg/dL (8.8-10.2); CHLORIDE 94 mmol/L (98-107); COSMO 296; CREATININE 0.6 mg/dL (0.5-0.9); ESTIMATED GFR > 60; GLUCOSE 265 mg/dL (70-104); GOT 25 U/L (10-30); GPT 15 U/L (10-36); POTASSIUM 3.6 mmol/L (3.5-5.1); SODIUM 142 mmol/L (136-145); TCO2 33 mmol/L (25-35); TOTAL BILIRUBIN 0.32 mg/dL (0.20-1.00); TOTAL PROTEIN 6.2 g/dL (6.3-8.3)
[2018-08-29 06:48] LABS: ALKALINE PHOSPHATASE 65 U/L (32-104)
--- NOTE | 2018-08-29 07:08 | Diag Imaging Result Doc PS360 ---
EXAM: CHEST-PORTABLE 08/29/2018 HISTORY: respiratory failure TECHNIQUE: AP portable at 0554 COMMENT: There is cardiomegaly. There is a PICC line with its tip in the superior vena cava on the right. The appearance of the chest has not changed appreciably since 08/28/2018. IMPRESSION: Stable chest. Electronically signed by Maykel Rodríguez 08/29/2018 7:06 AM
[2018-08-29] MEDS: MUCOMYST 20% INH SCH ×2 (07:49→19:38)
[2018-08-29] MEDS: ICAR-C PO SCH ×2 (08:27→20:03)
[2018-08-29] MEDS: ASPIRIN PO SCH (08:27)
[2018-08-29] MEDS: PROTONIX IV SCH ×2 (08:27→20:04)
[2018-08-29] MEDS: CENTRUM SILVER PO SCH (08:27)
[2018-08-29] MEDS: CARDIZEM PO SCH ×3 (08:28→17:56)
[2018-08-29] MEDS: LEXAPRO PO SCH (08:28)
[2018-08-29] MEDS: MYCAMINE 100 MG in NS 100 ML IV SCH (08:43)
[2018-08-29] MEDS: SANTYL OINT TOP SCH (09:42)
[2018-08-29] MEDS: VANCOMYCIN 1,500 MG in NS 250 ML IV SCH (12:00)
--- NOTE | 2018-08-29 12:52 | PROGRESS NOTE ---
DATE: 08/29/2018 SUBJECTIVE: The patient is very confused this morning. At first, she did not want to talk to me. She would open her eyes a little bit and when I did ask her to talk to me, she started talking about someone else outside the hospital the did not make a whole lot of sense. LABORATORY DATA: Blood gas shows a pH of 7.48, pCO2 52, PO2 73. That is on 30% FiO2 on the BiPAP earlier this morning. White count 5760, hemoglobin 10.1. Electrolytes are essentially normal. Blood sugar was high at 326. OBJECTIVE: HEENT: She is normocephalic. Neck: Supple. Lungs: Sound fairly clear to auscultation. Heart: Regular rate and rhythm without murmurs, gallops, or friction rubs. Abdomen: Soft. Active bowel sounds. No organomegaly or tenderness. Neurological: The patient is very confused this morning, not very responsive. Her O2 with nasal cannula was not in her nose. I put this back in her nose. Will see if this makes a difference. ASSESSMENT: 1. Respiratory distress. 2. Chronic obstructive pulmonary disease exacerbation. 3. Pneumonia, resolving. 4. Cellulitis of the lower extremities. 5. Infected ulcer, left heel. 6. Diabetes mellitus. PLAN: Continue care. Will watch mentation. cc: Wallace Meyer Jr, MD
[2018-08-29] MEDS: ELAVIL PO SCH (20:04)
[2018-08-29] MEDS: LOVENOX SUBQ SCH (20:04)
[2018-08-30] MEDS: SOLU-MEDROL IV SCH ×2 (00:14→14:00)
[2018-08-30] MEDS: HUMALOG SUBQ SCH ×7 (00:14→23:43)
[2018-08-30] MEDS: LOTRIMIN 1% CREAM TOP SCH ×2 (00:14→14:00)
[2018-08-30] MEDS: DUONEB (A & A) INH SCH ×6 (03:05→23:40)
[2018-08-30] MEDS: VANCOMYCIN 1,500 MG in NS 250 ML IV SCH ×2 (04:00→23:32)
[2018-08-30] MEDS: NEURONTIN PO SCH ×3 (04:00→20:11)
[2018-08-30 05:20] LABS: ALLEN TEST YES; BE 11.6 mmoll (-3.0-3.0); BLOOD TYPE ARTERIAL; O2(CT) 9.7 mL/dL (15.0-23.0); O2HB 93.8 % (95.0-99.0); PCO2(98.6) 50 mmHg (35-45); PO2(98.6) 68 mmHg (60-100); SAMPLE BLOOD; SAO2 96.6 % (95.0-100.0); THB 7.3 g/dL (11.5-17.4); pH(98.6) 7.47 (7.35-7.45)
[2018-08-30 05:22] LABS: MODALITY BI PAP
[2018-08-30 06:10] LABS: HEMATOCRIT 32.2 % (37.0-47.0); HEMOGLOBIN 9.9 g/dL (12.0-16.0); MCH 25.1 PG (27-31); MCHC 30.7 g/dL (33-37); MCV 81.5 FL (81-99); MPV 12.4 FL (7.4-10.4); RBC 3.95 XMIL (4.2-5.4); RDW 20.8 % (11.5-14.5); WBC 5.58 X1000 (4.8-10.8)
[2018-08-30 06:22] LABS: AGAP 11; ALB/GLOB RATIO 1.1; ALBUMIN 3.2 g/dL (3.5-5.0); ALKALINE PHOSPHATASE 64 U/L (32-104); BUN 22 mg/dL (8-22); CALCIUM 8.9 mg/dL (8.8-10.2); CHLORIDE 94 mmol/L (98-107); COSMO 284; CREATININE 0.6 mg/dL (0.5-0.9); ESTIMATED GFR > 60; GLUCOSE 226 mg/dL (70-104); GOT 36 U/L (10-30); GPT 33 U/L (10-36); POTASSIUM 3.6 mmol/L (3.5-5.1); SODIUM 137 mmol/L (136-145); TCO2 32 mmol/L (25-35); TOTAL BILIRUBIN 0.41 mg/dL (0.20-1.00); TOTAL PROTEIN 6.1 g/dL (6.3-8.3)
--- NOTE | 2018-08-30 07:29 | Diag Imaging Result Doc PS360 ---
EXAM: CHEST-PORTABLE 08/30/2018 HISTORY: respiratory failure TECHNIQUE: AP portable at 0432 COMMENT: The lungs are slightly better expanded and clearer than on the previous study of 08/29/2018. IMPRESSION: Improved pulmonary edema. Electronically signed by Maykel Rodríguez 08/30/2018 7:27 AM
[2018-08-30] MEDS: MUCOMYST 20% INH SCH ×2 (07:41→19:40)
[2018-08-30] MEDS: SANTYL OINT TOP SCH (09:01)
[2018-08-30] MEDS: MYCAMINE 100 MG in NS 100 ML IV SCH (09:02)
[2018-08-30] MEDS: CARDIZEM PO SCH ×3 (09:02→17:58)
[2018-08-30] MEDS: ASPIRIN PO SCH (09:02)
[2018-08-30] MEDS: ICAR-C PO SCH ×2 (09:03→20:11)
[2018-08-30] MEDS: PROTONIX IV SCH ×2 (09:03→20:12)
[2018-08-30] MEDS: LEXAPRO PO SCH (09:03)
[2018-08-30] MEDS: CENTRUM SILVER PO SCH (09:03)
--- NOTE | 2018-08-30 13:05 | PROGRESS NOTE ---
DATE: 08/30/2018 SUBJECTIVE: The patient is alert today. She has got her nasal cannula in place. Seems to be feeling better. She makes sense today. OBJECTIVE: Blood pressure is 125/61, respirations 18, pulse 77, temperature 98.3 degrees Fahrenheit. Oxygen saturation is 99% with 3 L. Chest x-ray shows lungs are slightly better expanded and clearer than on the previous study. Improved pulmonary edema.HEENT: She is normocephalic. EOMS intact. PERRLA. Throat clear. Lungs: A few rales anteriorly. Heart: Regular rate and rhythm without murmurs, gallops, or friction rubs. It sounds at this time as if she has gone into atrial fibrillation. The patient on the monitor is still in atrial fibrillation. Abdomen: Soft. Active bowel sounds. No organomegaly or tenderness. Neurologic: Exam intact. Cellulitis is improving on her lower extremities. She has a wound on her left heel with MRSA positive. Endocrine: The patient also has diabetes mellitus. PLAN: Continue current care. cc: Wallace Meyer Jr, MD
--- NOTE | 2018-08-30 13:42 | INFECTIOUS DISEASE PROGRESS NO ---
DATE: 08/30/2018 PRESENT ILLNESS: The patient has methicillin-resistant Staph aureus cellulitis of her legs. She also has a Molly dermatitis in intertriginous areas. MEDICATIONS: This is day 5 of treatment with IV vancomycin and day the 3 of treatment with micafungin. PHYSICAL EXAMINATION: Vital Signs: Temperature is 98.3 degrees, pulse 77, respirations 18, blood pressure 125/61. General: This is a chronically ill-appearing elderly female. She is alert. She is sitting in her bed and eating. She has no complaints at this time. Head, eyes, ears, nose, and throat: She can hear my spoken words and see near objects. She does not have any white coating on her tongue. Neck: No stiffness. Lungs: Clear to auscultation. Cardiovascular: Heart rate is irregular. Abdomen: Soft and nontender. Extremities: The patient has a PICC in her right arm. The site is not erythematous or draining. Both legs are less edematous and erythematous. Integument: The erythematous rash in intertriginous areas appears to be improving. Neurologic: Patient is alert. She is coherent. There is no tremor. LABORATORY AND X-RAY: CBC today shows a white count of 5580, hemoglobin 9.9, and platelet count 183,000. Blood gases show a pH of 7.47, a PO2 of 68, a pCO2 of 50. Creatinine is 0.6, GFR is greater than 60. Chest x-ray shows improvement in the patient's pulmonary edema. ASSESSMENT AND PLAN: 1. The patient has methicillin-resistant Staph aureus cellulitis of her legs for which she is on vancomycin and a Molly dermatitis in intertriginous areas for which the patient is on fluconazole. 2. Comorbidities: The patient is elderly. She is obese. She has diabetes mellitus, chronic leg edema and chronic obstructive pulmonary disease. cc: MD Wallace Serrano Jr, MD
[2018-08-30] MEDS: ELAVIL PO SCH (20:11)
[2018-08-30] MEDS: LOVENOX SUBQ SCH (20:12)
[2018-08-31] MEDS: LOTRIMIN 1% CREAM TOP SCH ×4 (01:46→21:40)
[2018-08-31] MEDS: SOLU-MEDROL IV SCH ×2 (01:46→16:21)
[2018-08-31] MEDS: DUONEB (A & A) INH SCH ×6 (03:09→23:40)
[2018-08-31 04:53] LABS: ALLEN TEST YES; BE 10.7 mmoll (-3.0-3.0); BLOOD TYPE ARTERIAL; HCO3-(ACT) 33.3 mmoll (20.0-26.0); O2(CT) 9.7 mL/dL (15.0-23.0); PCO2(98.6) 50 mmHg (35-45); PO2(98.6) 77 mmHg (60-100); SAMPLE BLOOD; SAO2 97.2 % (95.0-100.0); THB 7.2 g/dL (11.5-17.4); pH(98.6) 7.46 (7.35-7.45)
[2018-08-31 04:55] LABS: MODALITY BI PAP
[2018-08-31] MEDS: NEURONTIN PO SCH ×3 (05:08→21:27)
[2018-08-31] MEDS: HUMALOG SUBQ SCH ×5 (05:08→21:28)
[2018-08-31 05:19] LABS: HEMATOCRIT 30.7 % (37.0-47.0); HEMOGLOBIN 9.5 g/dL (12.0-16.0); MCH 25.1 PG (27-31); MCHC 30.9 g/dL (33-37); MPV 11.1 FL (7.4-10.4); RBC 3.79 XMIL (4.2-5.4); RDW 20.7 % (11.5-14.5); WBC 6.29 X1000 (4.8-10.8)
[2018-08-31 05:26] LABS: AGAP 11; ALB/GLOB RATIO 1.1; ALBUMIN 3.1 g/dL (3.5-5.0); ALKALINE PHOSPHATASE 61 U/L (32-104); BUN 23 mg/dL (8-22); CALCIUM 9.3 mg/dL (8.8-10.2); CHLORIDE 97 mmol/L (98-107); COSMO 288; CREATININE 0.8 mg/dL (0.5-0.9); ESTIMATED GFR > 60; GLUCOSE 218 mg/dL (70-104); GOT 43 U/L (10-30); GPT 56 U/L (10-36); POTASSIUM 3.6 mmol/L (3.5-5.1); SODIUM 139 mmol/L (136-145); TCO2 31 mmol/L (25-35); TOTAL BILIRUBIN 0.36 mg/dL (0.20-1.00); TOTAL PROTEIN 5.8 g/dL (6.3-8.3)
--- NOTE | 2018-08-31 06:18 | Diag Imaging Result Doc PS360 ---
EXAM: CHEST-PORTABLE HISTORY: respiratory failure TECHNIQUE: Portable chest single view COMPARISON: 08/30/2018 FINDINGS: Poor inspiratory effort. No change in the right-sided PICC line. The heart is enlarged. Mild pulmonary edema. No consolidation. No pleural effusions identified. IMPRESSION: Cardiomegaly with pulmonary edema Electronically signed by Frederic Lynn 08/31/2018 6:16 AM
[2018-08-31] MEDS: MUCOMYST 20% INH SCH ×2 (07:52→19:45)
--- NOTE | 2018-08-31 08:12 | EKG Report ---
Test Performed on : 08/29/2018 06:21:47 AM Test Reason : afib Blood Pressure : / mmHG Vent. Rate : 100 BPM Atrial Rate : 100 BPM P-R Int : 180 ms QRS Dur : 086 ms QT Int : 424 ms P-R-T Axes : 039 049 098 degrees QTc Int : 546 ms Sinus rhythm. with premature ventricular complexes. or fusion complexes Nonspecific ST and T wave abnormality Prolonged QT Abnormal ECG When compared with ECG of 29-AUG-2018 02:02, (Unconfirmed) fusion complexes are now present QT has lengthened Confirmed by Shama RIOS, Carlos Benoit ([id number]) on 08/31/2018 9:40:42 AM
--- NOTE | 2018-08-31 08:17 | EKG Report ---
Test Performed on : 08/29/2018 02:02:36 AM Test Reason : afib Blood Pressure : / mmHG Vent. Rate : 099 BPM Atrial Rate : 086 BPM P-R Int : 188 ms QRS Dur : 090 ms QT Int : 348 ms P-R-T Axes : 072 052 093 degrees QTc Int : 446 ms Sinus rhythm. with marked sinus arrhythmia. with frequent and consecutive premature ventricular compl exes. Nonspecific ST abnormality Abnormal ECG When compared with ECG of 29-AUG-2018 02:01, (Unconfirmed) Sinus rhythm. has replaced Atrial fibrillation. T wave inversion no longer evident in Lateral leads Rhythm may be SR with PACswith aberrant conduction Confirmed by Shama RIOS, Carlos Benoit ([id number]) on 08/31/2018 9:36:48 AM
--- NOTE | 2018-08-31 08:37 | INFECTIOUS DISEASE PROGRESS NO ---
DATE: 08/31/2018 PRESENT ILLNESS: Patient has methicillin-resistant Staph aureus cellulitis of her leg. She also has a Molly dermatitis in intertriginous areas and also in the vaginal area. MEDICATIONS: This is day 8 of treatment with IV vancomycin and day 6 of treatment with micafungin IV. PHYSICAL EXAMINATION: Vital Signs: Temperature is 98.8 degrees, pulse 58, respirations 17, blood pressure 116/66. General: This is a chronically ill-appearing elderly female. She is alert today. She is moving her extremities. There is no tremor. Head/eyes/ears/nose/throat: No drainage noted from the nose or ears. She does not have any white patches on her tongue. Neck: No meningismus. Lungs: Clear to auscultation. Cardiovascular: Regular heart rate. Abdomen: Soft and nontender. Neurologic: The patient is awake. She can move her extremities. There is no tremor. Integument: Patient's intertriginous rash is getting much better. Extremities: The patient's legs, the erythema is almost completely gone and the wound on the heel is clean and getting smaller. LABORATORY AND X-RAY: The chest x-ray shows pulmonary edema. CE CBC shows a white count of 6290, hemoglobin 9.5, and platelet count 182,000. Blood gases show a pH of 7.46, a PO2 of 77, a pCO2 of 50. Creatinine 0.8. GFR is greater than 60. The ALT is 56. ASSESSMENT AND PLAN: 1. As regarding the patient's methicillin-resistant Staph aureus infection of her legs, I have switched the patient to doxycycline for 5 more days and discontinued vancomycin. As for the patient's Molly dermatitis, I have discontinued micafungin and have ordered Lotrimin cream for the intertriginous areas, rashes and Gyne-Lotrimin for the Molly vaginitis. My plan now is I put a stop date on both of those new medications for after 5 days. I am signing off the patient's case. I am available to see the patient on a p.r.n. basis. 2. Comorbidities: The patient is elderly, she is obese and she has diabetes mellitus, chronic leg edema, chronic obstructive pulmonary disease. cc: MD Wallace Serrano Jr, MD
[2018-08-31] MEDS: DOXYCYCLINE PO SCH ×2 (09:00→21:27)
[2018-08-31] MEDS: PROTONIX IV SCH ×2 (09:00→21:27)
[2018-08-31] MEDS: SODIUM CHLORIDE 0.9% INJ SCH ×2 (09:00→21:27)
[2018-08-31] MEDS: CENTRUM SILVER PO SCH (09:00)
[2018-08-31] MEDS: ASPIRIN PO SCH (09:01)
[2018-08-31] MEDS: CARDIZEM PO SCH ×3 (09:01→16:21)
[2018-08-31] MEDS: LEXAPRO PO SCH (09:01)
[2018-08-31] MEDS: ICAR-C PO SCH ×2 (09:01→21:27)
[2018-08-31] MEDS: SANTYL OINT TOP SCH (09:18)
--- NOTE | 2018-08-31 10:12 | PROGRESS NOTE ---
DATE: 08/31/2018 SUBJECTIVE: The patient says she is hurting worse. She is aching all over, does not feel good. Aches down in her thighs. She wonders if she has the flu. Her heel is bothering her more. Actually, her heel is getting better and her cellulitis is clearing up. The nurse tells me that she has been confused and talking out of her head at times. Infectious disease has signed off because her cellulitis is improved so much. Still has trouble with her breathing at times. OBJECTIVE: Vital Signs: Blood pressure 116/66, respirations 17, pulse 58 and regular. She is afebrile. Laboratory: Shows a white count of 6290, hemoglobin 9.5. Blood gas 7.46 pH with a pCO2 of 50 and a PO2 77 on the BiPAP. Electrolytes essentially normal. Blood sugar 280. HEENT: She is normocephalic. EOMs intact. PERRLA. Throat clear. Lungs: Have a few scattered rales. Heart: Irregularly irregular. Abdomen: Soft. Active bowel sounds. No organomegaly or tenderness. Neurological Examination: The patient had some confusion. She is alert and at times makes sense and other times, does not. Her cellulitis seems to be just about gone. Very little redness at all on her lower extremities. Left heel ulcer with MRSA is getting smaller. ASSESSMENT: 1. Respiratory arrest. 2. Exacerbation of chronic obstructive pulmonary disease. 3. Pneumonia, resolved. 4. Cellulitis, lower extremities. 5. Heel ulceration with methicillin-resistant Staphylococcus aureus. 6. Diabetes mellitus. 7. Probable encephalopathy. PLAN: Continue care. We will check for flu. cc: Wallace Meyer Jr, MD
[2018-08-31] MEDS: ELAVIL PO SCH (21:27)
[2018-08-31] MEDS: LOVENOX SUBQ SCH (21:27)
[2018-08-31] MEDS: GYNE-LOTRIMIN VAGINAL CREAM VAG SCH (21:39)
[2018-09-01] MEDS: HUMALOG SUBQ SCH ×6 (01:24→22:05)
[2018-09-01] MEDS: SOLU-MEDROL IV SCH ×2 (01:25→12:51)
[2018-09-01] MEDS: LOTRIMIN 1% CREAM TOP SCH ×4 (01:32→22:05)
--- NOTE | 2018-09-01 01:47 | PULMONOLOGY PROGRESS NOTE ---
DATE: 08/31/2018 SUBJECTIVE: The patient is awake, alert and conversant. It is difficult following her thought pattern and she has some confusion. She has no increased work of breathing. She ate all her breakfast. OBJECTIVE: Vital Signs: The patient has been afebrile for the last 24 hours. Blood pressure 138/74, heart rate 58, respiration rate 20 and unlabored, oxygen saturation 98% on 2 L per nasal cannula. HEENT: Pupils are equal and reactive. Oropharynx is clear. Neck: Supple. Chest: Reveals prolonged expiratory phase with distant breath sounds. Abdomen: Obese and soft. Extremities: Without edema. Decreased erythema. LABORATORY DATA: White blood count 6.29, hemoglobin. 9.5, platelet count 182,000. Arterial blood gas this morning, pH 7.46, pCO2 of 50, PO2 of 77. IMPRESSION: The patient is a 68-year-old with severe chronic obstructive pulmonary disease, morbid obesity, acute hypoxemic and hypercapnic respiratory failure and pulmonary hypertension. The patient continues to smoke. The patient is doing well off mechanical ventilation for the last several days. She is now taking per oral intake without difficulty. RECOMMENDATION: 1. Continue to cycle BiPAP at bedtime and as needed. 2. Attempt to balance intake and output. 3. Wean oxygen as tolerated. 4. Initiate physical therapy. 5. Continue incentive spirometry. 6. The patient is a good candidate for transfer to the floor. Anticipate rehab at the time of discharge. cc: MD Wallace Lowe Jr, MD
[2018-09-01] MEDS: DUONEB (A & A) INH SCH ×6 (03:55→22:59)
[2018-09-01] MEDS: NEURONTIN PO SCH ×3 (05:47→22:04)
[2018-09-01] MEDS: MUCOMYST 20% INH SCH ×2 (07:39→19:51)
[2018-09-01 08:13] LABS: AGAP 16; ALB/GLOB RATIO 1.3; ALBUMIN 3.4 g/dL (3.5-5.0); ALKALINE PHOSPHATASE 71 U/L (32-104); BUN 25 mg/dL (8-22); CALCIUM 9.6 mg/dL (8.8-10.2); CHLORIDE 94 mmol/L (98-107); COSMO 287; CREATININE 0.8 mg/dL (0.5-0.9); ESTIMATED GFR > 60; GLUCOSE 254 mg/dL (70-104); GOT 39 U/L (10-30); GPT 71 U/L (10-36); SODIUM 137 mmol/L (136-145); TCO2 27 mmol/L (25-35); TOTAL BILIRUBIN 0.31 mg/dL (0.20-1.00)
[2018-09-01] MEDS: CARDIZEM PO SCH ×3 (09:00→17:59)
[2018-09-01] MEDS: ASPIRIN PO SCH (09:09)
[2018-09-01] MEDS: ICAR-C PO SCH ×2 (09:09→22:04)
[2018-09-01] MEDS: CENTRUM SILVER PO SCH (09:09)
[2018-09-01] MEDS: DOXYCYCLINE PO SCH ×2 (09:09→22:04)
[2018-09-01] MEDS: LEXAPRO PO SCH (09:09)
[2018-09-01] MEDS: SODIUM CHLORIDE 0.9% INJ SCH ×2 (09:10→22:05)
[2018-09-01] MEDS: PROTONIX IV SCH ×2 (09:11→22:04)
--- NOTE | 2018-09-01 09:13 | PROGRESS NOTE ---
DATE: 09/01/2018 SUBJECTIVE: The patient was very sleepy. When I walk in, her oxygen was off. Tried to arouse her, and she would wake up a little bit, but she could not answer my questions. She is very confused. I do not know whether this is because her oxygen saturation may been low since she pulled her oxygen off. Laboratory is essentially normal. Liver enzymes are slightly elevated at 39 for her AST and 71 for her ALT. Her blood sugar was 254. OBJECTIVE: Vital signs: On physical examination, vital signs show blood pressure 153/78, respirations 20, pulse 68, and irregular. Temp 98.3 degrees Fahrenheit. HEENT: She is normocephalic. EOMs intact. PERRLA. Throat clear. Lungs: Sound fairly clear to auscultation. Heart: Regular rate and rhythm without murmurs, gallops, or friction rubs. Abdomen: Soft. Active bowel sounds. No organomegaly or tenderness. Neurologic: Patient is confused. She keeps pulling her oxygen off. ASSESSMENT: 1. Respiratory failure. 2. Chronic obstructive pulmonary disease exacerbation. 3. Pneumonia, resolved. 4. Cellulitis, lower extremities, essentially resolved. 5. Methicillin-resistant Staphylococcus aureus infected ulcer, left heel, now healing. 6. Recurrence of atrial fibrillation. 7. Adult onset diabetes mellitus. 8. Pickwickian syndrome. 9. Lymphedema. 10. Morbid obesity. 11. Tobacco addiction. PLAN: We will continue to support. Will try keep her oxygen on. Start her on some physical therapy. cc: Wallace Meyer Jr, MD
[2018-09-01 09:49] LABS: HEMATOCRIT 33.5 % (37.0-47.0); HEMOGLOBIN 10.3 g/dL (12.0-16.0); MCH 24.8 PG (27-31); MCHC 30.7 g/dL (33-37); MCV 80.7 FL (81-99); RBC 4.15 XMIL (4.2-5.4); RDW 21.1 % (11.5-14.5); WBC 7.29 X1000 (4.8-10.8)
[2018-09-01] MEDS: SANTYL OINT TOP SCH (12:47)
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
[2018-09-01 18:53] LABS: URINE SOURCE CATH
[2018-09-01 18:58] LABS: BILIRUBIN URINE NEGATIVE (NEGATIVE); BLOOD URINE NEGATIVE (NEGATIVE); COLOR YELLOW; GLUCOSE URINE >1000 mg/dL (NEGATIVE); KETONE URINE NEGATIVE (NEGATIVE); LEUKOCYTES URINE NEGATIVE (NEGATIVE); NITRITE URINE NEGATIVE (NEGATIVE); PH URINE 6.5; PROTEIN URINE 100 mg/dL (NEGATIVE); SP GRAVITY URINE 1.032; TURBIDITY URINE CLEAR (CLEAR); UROBILINOGEN URINE NORMAL (NORMAL)
[2018-09-01 19:00] LABS: UR EPITHELIAL CELLS <10 /HPF (<10); URINE BACTERIA NEGATIVE /HPF; URINE RBC <10 /HPF (<10); URINE WBC <10 /HPF (<10)
[2018-09-01] MEDS: ELAVIL PO SCH (22:04)
[2018-09-01] MEDS: GYNE-LOTRIMIN VAGINAL CREAM VAG SCH (22:05)
[2018-09-01] MEDS: LOVENOX SUBQ SCH (22:06)
[2018-09-02] MEDS: HUMALOG SUBQ SCH ×6 (00:16→20:12)
[2018-09-02] MEDS: LOTRIMIN 1% CREAM TOP SCH ×4 (00:16→20:13)
[2018-09-02] MEDS: SOLU-MEDROL IV SCH ×2 (00:16→14:41)
[2018-09-02] MEDS: DUONEB (A & A) INH SCH ×6 (03:10→23:05)
--- NOTE | 2018-09-02 04:47 | PULMONOLOGY PROGRESS NOTE ---
DATE: 09/01/2018 SUBJECTIVE: The patient is awake, alert, and conversant. Mental status is more oriented than over the last few days. She is without increased work of breathing. She currently is using nasal cannula. OBJECTIVE: Vital Signs: The patient has been afebrile for the last 24 hours. Blood pressure 137/72, heart rate 88, respiratory rate 16, oxygen saturation 96% on nasal cannula. HEENT: Pupils are equal and reactive. Oropharynx is clear. Neck: Supple. Chest: Reveals prolonged expiratory phase. Cardiac Examination: S1 and S2. Abdomen: Obese and soft. Extremities: Without edema. Laboratories: White blood count 7.29, hemoglobin 10.3, platelet count 203,000. Sodium 137, potassium 4.0, chloride 94, bicarbonate 27, BUN 25, hematocrit. 0.8. Arterial blood gas with pH of 7.46, pCO2 of 50, PO2 of 77. IMPRESSION: A 68-year-old with severe chronic obstructive pulmonary disease, ongoing tobacco use, morbid obesity, acute hypoxemic respiratory failure, acute hypercapnic respiratory failure, and pulmonary hypertension. The patient has had difficulty with delirium. She continues to improve. RECOMMENDATIONS: 1. Continue to cycle BiPAP. 2. Encourage p.o. intake. 3. Wean oxygen as tolerated. 4. Continue physical therapy. 5. Continue bronchial hygiene. 6. Anticipate discharge to a rehab facility soon. cc: MD Wallace Lowe Jr, MD
[2018-09-02] MEDS: NEURONTIN PO SCH ×3 (04:59→20:11)
[2018-09-02] MEDS: MUCOMYST 20% INH SCH ×2 (07:30→19:25)
[2018-09-02] MEDS: DOXYCYCLINE PO SCH ×2 (07:54→20:11)
[2018-09-02 07:58] LABS: HEMATOCRIT 33.5 % (37.0-47.0); HEMOGLOBIN 10.4 g/dL (12.0-16.0); MCH 25.1 PG (27-31); MCV 80.9 FL (81-99); MPV 11.8 FL (7.4-10.4); RBC 4.14 XMIL (4.2-5.4); RDW 21.5 % (11.5-14.5); WBC 6.27 X1000 (4.8-10.8)
[2018-09-02] MEDS: PROTONIX IV SCH ×2 (08:02→20:11)
[2018-09-02] MEDS: CARDIZEM PO SCH ×3 (08:02→17:29)
[2018-09-02] MEDS: ICAR-C PO SCH ×2 (08:02→20:11)
[2018-09-02] MEDS: ASPIRIN PO SCH (08:02)
[2018-09-02] MEDS: CENTRUM SILVER PO SCH (08:02)
[2018-09-02] MEDS: LEXAPRO PO SCH (08:02)
[2018-09-02] MEDS: SODIUM CHLORIDE 0.9% INJ SCH ×2 (08:02→20:11)
[2018-09-02 08:17] LABS: AGAP 15; ALB/GLOB RATIO 1.1; ALBUMIN 3.3 g/dL (3.5-5.0); ALKALINE PHOSPHATASE 62 U/L (32-104); BUN 24 mg/dL (8-22); CALCIUM 9.6 mg/dL (8.8-10.2); CHLORIDE 98 mmol/L (98-107); COSMO 286; CREATININE 0.7 mg/dL (0.5-0.9); ESTIMATED GFR > 60; GLUCOSE 280 mg/dL (70-104); GOT 30 U/L (10-30); GPT 67 U/L (10-36); POTASSIUM 3.8 mmol/L (3.5-5.1); SODIUM 136 mmol/L (136-145); TCO2 23 mmol/L (25-35); TOTAL BILIRUBIN 0.31 mg/dL (0.20-1.00); TOTAL PROTEIN 6.3 g/dL (6.3-8.3)
--- NOTE | 2018-09-02 09:31 | PROGRESS NOTE ---
DATE: 09/02/2018 SUBJECTIVE: The patient is alert and appropriate at this point. I appreciate Dr. Cain from Neurology seeing her. I agree that she probably does have a global encephalopathy most likely related to her other conditions. I also wonder if sometimes she drops off her oxygen and that is what causes this as she may have some hypoxia. Her oxygen saturation is 99% this morning on 2 L. OBJECTIVE: Vital Signs: Temperature is 97.9 degrees Fahrenheit, pulse 79, respirations 21, blood pressure 159/87. HEENT: She is normocephalic. Extraocular movements intact. Throat clear. Lungs: Sound fairly clear to auscultation today. Heart: Regular rate and rhythm without murmurs, gallops, friction rubs. Abdomen: Soft. Active bowel sounds. No organomegaly or tenderness. Neurologic: Intact grossly. Cellulitis seems to have cleared. She still has an ulcer on her left heel that was growing MRSA. ASSESSMENT: 1. Respiratory distress. 2. Exacerbation of chronic obstructive pulmonary disease. 3. Pneumonia, resolved. 4. Infected ulcer left heel, getting better. 5. Cellulitis. 6. Altered mental status with encephalopathy. 7. Diabetes mellitus. 8. Morbid obesity. We did get a urinalysis on her yesterday because of her altered mental status, but it was normal. We will continue care. cc: Wallace Meyer Jr, MD
[2018-09-02] MEDS: SANTYL OINT TOP SCH (14:32)
--- NOTE | 2018-09-02 17:16 | PROGRESS NOTE ---
DATE: 09/02/2018 Dr. Cain saw Ms. Ndiaye for initial neurology consultation. She has a global encephalopathy and question of baseline cognitive impairment. I counted 19 entries on her home medication list. I discussed several of those with Ms. Ndiaye and she was not able to provide much detail. She believes that she has been taking amitriptyline, escitalopram, gabapentin for years without recent dose change. She believes lorazepam was added recently but she was not able to tell me whether she takes that t.i.d. as listed or if she takes it differently. She reports tramadol is on her list but she has not taken that recently. Today, she is awake, alert, attentive. She seems appropriate in her conversation with me. She does seem uncertain about some of her prior history and I think baseline mild cognitive impairment is possible. I did not test her cognitive function thoroughly here today. I do not have any new suggestion and nothing to add to Dr. Cain's earlier recommendations. I will be glad to see her as an outpatient if needed. Thanks for asking neurology to see Ms. Ndiaye. cc: MD Wallace Evans III, Jr, MD
[2018-09-02] MEDS: LOVENOX SUBQ SCH (20:11)
[2018-09-02] MEDS: GYNE-LOTRIMIN VAGINAL CREAM VAG SCH (20:11)
[2018-09-02] MEDS: ELAVIL PO SCH (20:11)
[2018-09-03] MEDS: LOTRIMIN 1% CREAM TOP SCH ×4 (00:21→21:08)
[2018-09-03] MEDS: SOLU-MEDROL IV SCH ×2 (00:21→13:41)
[2018-09-03] MEDS: HUMALOG SUBQ SCH ×6 (00:21→21:09)
[2018-09-03] MEDS: DUONEB (A & A) INH SCH ×6 (03:05→23:23)
[2018-09-03] MEDS: NEURONTIN PO SCH ×3 (06:54→21:08)
[2018-09-03 07:07] LABS: HEMATOCRIT 33.8 % (37.0-47.0); HEMOGLOBIN 10.5 g/dL (12.0-16.0); MCH 25.4 PG (27-31); MCHC 31.1 g/dL (33-37); MCV 81.8 FL (81-99); MPV 12.2 FL (7.4-10.4); RBC 4.13 XMIL (4.2-5.4); RDW 21.5 % (11.5-14.5); WBC 8.71 X1000 (4.8-10.8)
[2018-09-03 07:37] LABS: AGAP 16; ALB/GLOB RATIO 1.2; ALBUMIN 3.5 g/dL (3.5-5.0); ALKALINE PHOSPHATASE 64 U/L (32-104); BUN 24 mg/dL (8-22); CALCIUM 9.6 mg/dL (8.8-10.2); CHLORIDE 97 mmol/L (98-107); COSMO 290; CREATININE 0.7 mg/dL (0.5-0.9); ESTIMATED GFR > 60; GLUCOSE 315 mg/dL (70-104); GOT 24 U/L (10-30); GPT 65 U/L (10-36); SODIUM 137 mmol/L (136-145); TCO2 24 mmol/L (25-35); TOTAL BILIRUBIN 0.29 mg/dL (0.20-1.00); TOTAL PROTEIN 6.4 g/dL (6.3-8.3)
[2018-09-03] MEDS: MUCOMYST 20% INH SCH ×2 (07:43→20:00)
[2018-09-03] MEDS: CARDIZEM PO SCH ×3 (08:13→17:13)
[2018-09-03] MEDS: LEXAPRO PO SCH (08:13)
[2018-09-03] MEDS: ICAR-C PO SCH ×2 (08:13→21:08)
[2018-09-03] MEDS: ASPIRIN PO SCH (08:13)
[2018-09-03] MEDS: CENTRUM SILVER PO SCH (08:13)
[2018-09-03] MEDS: DOXYCYCLINE PO SCH ×2 (08:13→21:08)
[2018-09-03] MEDS: SODIUM CHLORIDE 0.9% INJ SCH ×2 (08:13→21:08)
[2018-09-03] MEDS: PROTONIX IV SCH ×2 (08:13→21:08)
--- NOTE | 2018-09-03 09:22 | PROGRESS NOTE ---
DATE: 09/03/2018 SUBJECTIVE: The patient is alert, feeling a little bit better, has had periods of confusion, but some of this is better now. Will stop her amitriptyline and see if this helps. Will keep her off of her clonidine. OBJECTIVE: Vital Signs: Blood pressure of 159/87, respirations 21, pulse 79, temperature 97.9 degrees. HEENT: She is normocephalic. EOMS intact. PERRLA. Throat clear. Lungs: Have a few scattered rales. Heart: Irregularly irregular without murmurs, gallops, or friction rubs. Telemetry still shows atrial fibrillation, but she does go in and out of sinus rhythm. Abdomen: Soft, with active bowel sounds. No organomegaly or tenderness. Neurological: Intact grossly. ASSESSMENT: 1. Exacerbation of chronic obstructive pulmonary disease. 2. Pneumonia, resolved. 3. Atrial fibrillation, intermittent. 4. Cellulitis of lower extremities, resolved. 5. Methicillin-resistant staphylococcus aureus infected ulcer, left heel, improving. 6. The patient also has diabetes mellitus, hypertension, and morbid obesity, as well as neuropathy. PLAN: Will continue care. Consider rehab soon. She is still on IV Solu-Medrol. She is on oral antibiotics now. Will try to simplify medication list for anything that might be causing some of her cognitive impairment at times. cc: Wallace Meyer Jr, MD
--- NOTE | 2018-09-03 11:58 | PROGRESS NOTE ---
DATE: 09/03/2018 Ms. Ndiaye remains awake, alert, attentive. She had some appropriate conversation with me. She is oriented. She appears stable neurologically. Agree with stopping amitriptyline. I do not have any new suggestion from Neurology standpoint. Thanks for asking us to see Ms. Ndiaye. cc: MD Wallace Evans III, Jr, MD MTDD
[2018-09-03] MEDS: SANTYL OINT TOP SCH (13:39)
[2018-09-03] MEDS: LOVENOX SUBQ SCH (21:08)
[2018-09-03] MEDS: GYNE-LOTRIMIN VAGINAL CREAM VAG SCH (21:08)
[2018-09-03] MEDS: ULTRAM PO PRN (21:16)
[2018-09-04] MEDS: HUMALOG SUBQ SCH ×7 (00:16→23:56)
[2018-09-04] MEDS: TYLENOL PR PRN (00:17)
[2018-09-04] MEDS: SOLU-MEDROL IV SCH ×3 (01:56→23:56)
[2018-09-04] MEDS: LOTRIMIN 1% CREAM TOP SCH ×4 (01:56→21:45)
[2018-09-04] MEDS: DUONEB (A & A) INH SCH ×6 (03:29→23:39)
[2018-09-04] MEDS: NEURONTIN PO SCH ×3 (04:29→21:45)
[2018-09-04 07:02] LABS: HEMOGLOBIN 10.9 g/dL (12.0-16.0); MCH 25.1 PG (27-31); MCHC 31.1 g/dL (33-37); MCV 80.6 FL (81-99); MPV 12.3 FL (7.4-10.4); RBC 4.34 XMIL (4.2-5.4); RDW 21.3 % (11.5-14.5); WBC 10.12 X1000 (4.8-10.8)
[2018-09-04 07:27] LABS: AGAP 15; ALB/GLOB RATIO 1.2; ALBUMIN 3.6 g/dL (3.5-5.0); ALKALINE PHOSPHATASE 65 U/L (32-104); BUN 27 mg/dL (8-22); CHLORIDE 95 mmol/L (98-107); COSMO 284; CREATININE 0.8 mg/dL (0.5-0.9); ESTIMATED GFR > 60; GLUCOSE 260 mg/dL (70-104); GOT 21 U/L (10-30); GPT 53 U/L (10-36); SODIUM 135 mmol/L (136-145); TCO2 25 mmol/L (25-35); TOTAL BILIRUBIN 0.31 mg/dL (0.20-1.00); TOTAL PROTEIN 6.5 g/dL (6.3-8.3)
[2018-09-04] MEDS: MUCOMYST 20% INH SCH ×2 (07:34→19:17)
[2018-09-04] MEDS: SODIUM CHLORIDE 0.9% INJ SCH ×2 (08:39→21:44)
[2018-09-04] MEDS: LEXAPRO PO SCH (08:39)
[2018-09-04] MEDS: PROTONIX IV SCH ×2 (08:39→21:44)
[2018-09-04] MEDS: ICAR-C PO SCH ×2 (08:39→21:44)
[2018-09-04] MEDS: CARDIZEM PO SCH ×3 (08:39→21:44)
[2018-09-04] MEDS: DOXYCYCLINE PO SCH ×2 (08:40→21:44)
[2018-09-04] MEDS: ASPIRIN PO SCH (08:40)
[2018-09-04] MEDS: CENTRUM SILVER PO SCH (08:40)
[2018-09-04] MEDS: SANTYL OINT TOP SCH (08:41)
--- NOTE | 2018-09-04 12:08 | PROGRESS NOTE ---
DATE: 09/04/2018 SUBJECTIVE: The patient is alert. She is feeling better. We are working on rehab placement for her. It looks like it will be the first of next week. OBJECTIVE: Vital signs: Blood pressure is 146/86, respirations 20, pulse 92, temperature 98.1 degrees Fahrenheit. Oxygen saturation is 100% on room air. HEENT: She is normocephalic. EOMS intact. PERRLA. Throat clear. Lungs: Are fairly clear to auscultation and percussion without rhonchi, rales, or wheezes. Heart: Irregularly irregular without murmurs, gallops or friction rubs. Abdomen: Soft. Active bowel sounds. No organomegaly or tenderness. Neurological: Cranial nerves 2-12 intact grossly. Sensory, motor intact. Reflexes 1+ all. Cellulitis has resolved. Ulcer on left heel is healing. ASSESSMENT: 1. Respiratory distress. 2. Exacerbation of chronic obstructive pulmonary disease. 3. Pneumonia resolved. 4. Atrial fibrillation. 5. History of gastrointestinal bleed. 6. Adult onset diabetes mellitus. 7. Cellulitis of lower extremities, now resolved. 8. Left heel ulceration. 9. Tobacco addiction. The patient states that she will not smoke any more. 10. Morbid obesity. PLAN: We will continue care. Have stopped amitriptyline. She does look brighter. I am not sure whether it was because of the amitriptyline or not. We will hold off clonidine and anything else that may cause mental confusion. cc: Wallace Meyer Jr, MD
[2018-09-04] MEDS: LOVENOX SUBQ SCH (21:44)
[2018-09-04] MEDS: GYNE-LOTRIMIN VAGINAL CREAM VAG SCH (21:45)
[2018-09-04] MEDS: ULTRAM PO PRN (23:55)
--- NOTE | 2018-09-05 02:07 | PULMONOLOGY PROGRESS NOTE ---
DATE: 09/04/2018 SUBJECTIVE: The patient is awake, alert and conversant. She reports she continues to feel better with less shortness of breath. She has walked a few steps in the room. OBJECTIVE: Vital Signs: The patient has been afebrile for the last 24 hours. She remains on 2 L per nasal cannula. Blood pressure 148/82, heart rate 63, respiratory rate 20, oxygen saturation 97. HEENT: Pupils are equal and reactive. Oropharynx is clear. Neck: Supple. Chest: Reveals prolonged expiratory phase without wheezing or rhonchi. Cardiac: S1 and S2. Abdomen: Obese and soft. Extremities: Without edema. LABORATORY DATA: White blood count 10.12, hemoglobin 10.9, platelet count 198,000. Sodium 135, potassium 4.0, chloride 95, bicarbonate 25, BUN 27, creatinine 0.8. IMPRESSION: A 68-year-old with severe chronic obstructive pulmonary disease, acute hypoxemic respiratory failure, acute hypercapnic respiratory failure, morbid obesity, pulmonary hypertension, and tobacco use on admission. Her delirium is resolving. Her pulmonary status continues to improve and she has likely returned to her baseline. RECOMMENDATIONS: 1. Continue O2 for chronic hypoxemic respiratory failure. 2. Continue physical therapy. 3. Continue bronchial hygiene. 4. Smoking cessation was discussed. She reports she will not return to smoking. cc: MD Wallace Lowe Jr, MD
[2018-09-05] MEDS: SOLU-MEDROL IV SCH ×2 (03:12→16:27)
[2018-09-05] MEDS: DUONEB (A & A) INH SCH ×6 (03:25→23:43)
[2018-09-05] MEDS: HUMALOG SUBQ SCH ×5 (05:23→22:50)
[2018-09-05] MEDS: NEURONTIN PO SCH ×3 (05:23→22:34)
--- NOTE | 2018-09-05 06:55 | PROGRESS NOTE ---
DATE: 09/05/2018 SUBJECTIVE: The patient is feeling better. She did get up and walk in the room a little bit. She does not have her oxygen on right now. She says there are times when she does not need it. She seems alert. She is still very weak but, overall, doing better. OBJECTIVE: Vital signs are stable. HEENT: She is normocephalic. EOM intact. PERRLA. Throat clear. Lungs have a few scattered rales in the bases bilaterally. No wheezing. Heart is slightly irregular. She does have atrial fibrillation. Abdomen soft. Active bowel sounds. No organomegaly or tenderness. Neurological: Cranial nerves 2-12 intact grossly. Sensory and motor intact. Reflexes 1+ all. ASSESSMENT: 1. Respiratory distress. 2. Exacerbation of chronic obstructive pulmonary disease. 3. Pneumonia, resolved. 4. Recurrence of atrial fibrillation. 5. History of gastrointestinal bleed. 6. Adult onset diabetes mellitus. 7. Cellulitis of the lower extremities, now resolved. 8. Left heel ulceration, improving. 9. Tobacco addiction. The patient states that she is not going to smoke anymore. 10. Morbid obesity. 11. Altered mental status, much improved. PLAN: We will continue her care, and we are trying to make arrangements for rehab. Vital signs did show temperature of 98 degrees Fahrenheit, pulse 94, blood pressure 124/63. Oxygen saturation on room air was 93%. It may be that she just wants to wear her oxygen when she is sleeping. I have discussed with her the importance of stopping smoking and to losing weight. cc: Wallace Meyer Jr, MD MTDD
[2018-09-05 07:38] LABS: HEMATOCRIT 33.4 % (37.0-47.0); HEMOGLOBIN 10.4 g/dL (12.0-16.0); MCH 25.2 PG (27-31); MCHC 31.1 g/dL (33-37); MCV 81.1 FL (81-99); RBC 4.12 XMIL (4.2-5.4); RDW 21.9 % (11.5-14.5); WBC 9.05 X1000 (4.8-10.8)
[2018-09-05 07:51] LABS: AGAP 16; ALB/GLOB RATIO 1.3; ALBUMIN 3.5 g/dL (3.5-5.0); ALKALINE PHOSPHATASE 65 U/L (32-104); BUN 33 mg/dL (8-22); CALCIUM 9.7 mg/dL (8.8-10.2); CHLORIDE 96 mmol/L (98-107); COSMO 297; CREATININE 0.9 mg/dL (0.5-0.9); ESTIMATED GFR > 60; GLUCOSE 360 mg/dL (70-104); GOT 18 U/L (10-30); GPT 52 U/L (10-36); POTASSIUM 3.7 mmol/L (3.5-5.1); SODIUM 138 mmol/L (136-145); TCO2 26 mmol/L (25-35); TOTAL BILIRUBIN 0.24 mg/dL (0.20-1.00); TOTAL PROTEIN 6.1 g/dL (6.3-8.3)
[2018-09-05] MEDS: MUCOMYST 20% INH SCH ×2 (08:02→20:32)
[2018-09-05] MEDS: PROTONIX IV SCH ×2 (10:19→22:35)
[2018-09-05] MEDS: SODIUM CHLORIDE 0.9% INJ SCH (10:19)
[2018-09-05] MEDS: ASPIRIN PO SCH (10:20)
[2018-09-05] MEDS: DOXYCYCLINE PO SCH ×2 (10:20→22:33)
[2018-09-05] MEDS: LEXAPRO PO SCH (10:20)
[2018-09-05] MEDS: CARDIZEM PO SCH ×3 (10:20→22:34)
[2018-09-05] MEDS: CENTRUM SILVER PO SCH (10:20)
[2018-09-05] MEDS: ICAR-C PO SCH ×2 (10:20→22:33)
[2018-09-05] MEDS: SANTYL OINT TOP SCH (10:21)
[2018-09-05] MEDS: LOTRIMIN 1% CREAM TOP SCH ×3 (10:21→16:27)
[2018-09-05] MEDS ORDERED: GAVISCON LIQUID PO PRN (18:27)
[2018-09-05] MEDS: LOVENOX SUBQ SCH (22:50)
[2018-09-06] MEDS: SOLU-MEDROL IV SCH ×2 (01:21→15:33)
[2018-09-06] MEDS: HUMALOG SUBQ SCH ×6 (01:45→21:01)
[2018-09-06] MEDS: GYNE-LOTRIMIN VAGINAL CREAM VAG SCH (02:22)
[2018-09-06] MEDS: LOTRIMIN 1% CREAM TOP SCH ×5 (02:22→21:01)
[2018-09-06] MEDS: DUONEB (A & A) INH SCH ×6 (03:26→23:00)
[2018-09-06] MEDS: NEURONTIN PO SCH ×3 (05:22→21:00)
[2018-09-06 07:22] LABS: HEMOGLOBIN 10.2 g/dL (12.0-16.0); MCH 26.2 PG (27-31); MCHC 31.9 g/dL (33-37); MCV 82.1 FL (81-99); MPV 12.3 FL (7.4-10.4); RBC 3.9 XMIL (4.2-5.4); RDW 22.2 % (11.5-14.5); WBC 10.26 X1000 (4.8-10.8)
[2018-09-06] MEDS: MUCOMYST 20% INH SCH ×2 (07:45→19:41)
[2018-09-06 07:58] LABS: AGAP 13; ALB/GLOB RATIO 1.3; ALBUMIN 3.3 g/dL (3.5-5.0); ALKALINE PHOSPHATASE 60 U/L (32-104); BUN 26 mg/dL (8-22); CALCIUM 9.4 mg/dL (8.8-10.2); CHLORIDE 99 mmol/L (98-107); COSMO 290; CREATININE 0.7 mg/dL (0.5-0.9); ESTIMATED GFR > 60; GLUCOSE 246 mg/dL (70-104); GOT 21 U/L (10-30); GPT 52 U/L (10-36); POTASSIUM 4.1 mmol/L (3.5-5.1); SODIUM 139 mmol/L (136-145); TCO2 27 mmol/L (25-35); TOTAL BILIRUBIN 0.26 mg/dL (0.20-1.00); TOTAL PROTEIN 5.9 g/dL (6.3-8.3)
[2018-09-06] MEDS: CARDIZEM PO SCH ×3 (09:20→21:00)
[2018-09-06] MEDS: ICAR-C PO SCH ×2 (09:20→21:00)
[2018-09-06] MEDS: LEXAPRO PO SCH (09:20)
[2018-09-06] MEDS: CENTRUM SILVER PO SCH (09:20)
[2018-09-06] MEDS: SODIUM CHLORIDE 0.9% INJ SCH ×2 (09:20→21:01)
[2018-09-06] MEDS: PROTONIX IV SCH ×2 (09:20→21:01)
[2018-09-06] MEDS: ASPIRIN PO SCH (09:20)
[2018-09-06] MEDS: SANTYL OINT TOP SCH (09:21)
--- NOTE | 2018-09-06 11:10 | PROGRESS NOTE ---
DATE: 09/06/2018 SUBJECTIVE: The patient is feeling better. She did not wear her oxygen to sleep in last night. She says her breathing seems to be doing fine. She has not really gotten up and done a whole lot with physical therapy yet, but she did go to the bathroom and said she was not short of breath doing that. OBJECTIVE: Vital Signs: Stable. HEENT: She is normocephalic. EOMS intact. PERRLA. Throat clear. Lungs: Sound clear to auscultation today. Heart: irregularly irregular without murmurs, gallops, friction rubs. Abdomen: Soft. Active bowel sounds. No organomegaly or tenderness. Neurological: Intact grossly. Cellulitis has cleared. Ulceration left heel is improving. ASSESSMENT: 1. Respiratory distress. 2. Exacerbation of chronic obstructive pulmonary disease. 3. Pneumonia, resolved. 4. Recurrence of atrial fibrillation. 5. History of GI bleed. 6. Adult onset diabetes mellitus. 7. Cellulitis of lower extremities. Now resolved. 8. Heel ulceration with MRSA, improving. 9. Tobacco addiction. 10. Morbid obesity. 11. Altered mental status. Much improved. 12. Sleep disturbance. Patient took some Ativan last night to help sleep. I stopped her amitriptyline, trying to get her off medications that might alter her mental status. PLAN: We will continue care. I have tried to arrange for rehab. cc: Wallace Meyer Jr, MD
[2018-09-06] MEDS: ZOFRAN IV PRN (17:41)
[2018-09-06] MEDS: LOVENOX SUBQ SCH (21:08)
[2018-09-07] MEDS: SOLU-MEDROL IV SCH (00:42)
[2018-09-07] MEDS: LOTRIMIN 1% CREAM TOP SCH ×4 (00:42→23:00)
[2018-09-07] MEDS: HUMALOG SUBQ SCH ×6 (00:42→22:21)
[2018-09-07] MEDS: DUONEB (A & A) INH SCH ×6 (03:30→23:10)
[2018-09-07] MEDS: NEURONTIN PO SCH ×3 (05:12→22:22)
[2018-09-07] MEDS: ZOFRAN IV PRN (06:35)
[2018-09-07 07:05] LABS: HEMATOCRIT 35.3 % (37.0-47.0); HEMOGLOBIN 10.8 g/dL (12.0-16.0); MCH 25.2 PG (27-31); MCHC 30.6 g/dL (33-37); MCV 82.3 FL (81-99); MPV 12.2 FL (7.4-10.4); RBC 4.29 XMIL (4.2-5.4); RDW 22.1 % (11.5-14.5); WBC 12.63 X1000 (4.8-10.8)
[2018-09-07 07:18] LABS: AGAP 13; ALB/GLOB RATIO 1.3; ALBUMIN 3.5 g/dL (3.5-5.0); ALKALINE PHOSPHATASE 64 U/L (32-104); BUN 24 mg/dL (8-22); CALCIUM 9.8 mg/dL (8.8-10.2); CHLORIDE 99 mmol/L (98-107); COSMO 289; CREATININE 0.6 mg/dL (0.5-0.9); ESTIMATED GFR > 60; GLUCOSE 191 mg/dL (70-104); GOT 26 U/L (10-30); GPT 62 U/L (10-36); POTASSIUM 4.4 mmol/L (3.5-5.1); SODIUM 140 mmol/L (136-145); TCO2 28 mmol/L (25-35); TOTAL BILIRUBIN 0.22 mg/dL (0.20-1.00); TOTAL PROTEIN 6.2 g/dL (6.3-8.3)
[2018-09-07] MEDS: MUCOMYST 20% INH SCH ×2 (07:56→19:30)
--- NOTE | 2018-09-07 09:06 | PROGRESS NOTE ---
DATE: 09/07/2018 SUBJECTIVE: The patient is feeling better. She is breathing better. Still very weak. Physical therapy worked with her yesterday, but did not get her up to walk. She did sit up in a chair. I do think she would benefit from rehab. Her oxygen saturation has gone down this morning to 84%. She was 97 before that. Sometimes hypoxia can cause nausea as well. She has complained of nausea, but she usually at nighttime. She does not always want to wear her oxygen. OBJECTIVE: HEENT: She is normocephalic. EOMS intact. PERRLA. Nose and throat clear. Lungs: Clear to auscultation and percussion without rhonchi, rales, or wheezes. Heart: Regular rate rhythm without murmurs, gallops, or friction rubs. She has a sinus tachycardia. Not in atrial fibrillation at this time. Abdomen: Soft. Active bowel sounds. No organomegaly or tenderness. Neurologic: Intact grossly. Skin: Cellulitis has cleared. Vital Signs: Show blood pressure 141/64, respirations 18, pulse 95, temperature 98 degrees Fahrenheit. ASSESSMENT: 1. Respiratory distress. 2. Exacerbation of chronic obstructive pulmonary disease. 3. Pneumonia, resolved. 4. Cellulitis, resolved. 5. Ulceration to left heel healing. This did grow out methicillin-resistant Staphylococcus aureus. 6. Adult onset diabetes mellitus. 7. Hypertension. 8. Intermittent atrial fibrillation. 9. History of gastrointestinal bleed. 10. Morbid obesity. 11. Dependent edema, now improved. PLAN: Trying to arrange for rehab, could be sent out tomorrow if bed is available. Still working on this. I am not sure why she is getting nauseated in the middle of the night. Before she came in the hospital, she had bouts of nausea at different times, even during the day. It is better. I do not know whether it could be from some of her medication, but we will watch this. She is on tramadol, but she says she does not like it and has not been taking it much and does not think that is what is causing her nausea. cc: Wallace Meyer Jr, MD
[2018-09-07] MEDS: LEXAPRO PO SCH (09:39)
[2018-09-07] MEDS: PROTONIX IV SCH ×2 (09:39→22:22)
[2018-09-07] MEDS: ASPIRIN PO SCH (09:39)
[2018-09-07] MEDS: CARDIZEM PO SCH ×3 (09:39→22:22)
[2018-09-07] MEDS: SODIUM CHLORIDE 0.9% INJ SCH ×2 (09:39→22:22)
[2018-09-07] MEDS: CENTRUM SILVER PO SCH (09:40)
[2018-09-07] MEDS: SANTYL OINT TOP SCH (09:40)
[2018-09-07] MEDS: ICAR-C PO SCH ×2 (09:40→22:22)
[2018-09-07] MEDS: PREDNISONE PO SCH ×2 (09:45→22:22)
[2018-09-07] MEDS: LOVENOX SUBQ SCH (22:22)
[2018-09-08] MEDS: LOTRIMIN 1% CREAM TOP SCH ×4 (02:30→22:01)
[2018-09-08] MEDS: DUONEB (A & A) INH SCH ×6 (03:10→23:44)
[2018-09-08] MEDS: NEURONTIN PO SCH ×3 (06:33→22:01)
[2018-09-08] MEDS: HUMALOG SUBQ SCH ×6 (06:33→22:00)
[2018-09-08 06:59] LABS: HEMATOCRIT 34.9 % (37.0-47.0); HEMOGLOBIN 10.6 g/dL (12.0-16.0); MCH 25.6 PG (27-31); MCHC 30.4 g/dL (33-37); MCV 84.3 FL (81-99); RBC 4.14 XMIL (4.2-5.4); WBC 10.62 X1000 (4.8-10.8)
[2018-09-08 07:25] LABS: AGAP 11; ALB/GLOB RATIO 1.2; ALBUMIN 3.4 g/dL (3.5-5.0); ALKALINE PHOSPHATASE 63 U/L (32-104); BUN 27 mg/dL (8-22); CALCIUM 8.9 mg/dL (8.8-10.2); CHLORIDE 97 mmol/L (98-107); COSMO 289; CREATININE 0.7 mg/dL (0.5-0.9); ESTIMATED GFR > 60; GLUCOSE 238 mg/dL (70-104); GOT 24 U/L (10-30); GPT 62 U/L (10-36); POTASSIUM 4.4 mmol/L (3.5-5.1); SODIUM 138 mmol/L (136-145); TCO2 30 mmol/L (25-35); TOTAL BILIRUBIN 0.27 mg/dL (0.20-1.00); TOTAL PROTEIN 6.2 g/dL (6.3-8.3)
[2018-09-08] MEDS: MUCOMYST 20% INH SCH ×2 (08:03→19:45)
[2018-09-08] MEDS: CENTRUM SILVER PO SCH (08:18)
[2018-09-08] MEDS: ASPIRIN PO SCH (08:18)
[2018-09-08] MEDS: CARDIZEM PO SCH ×3 (08:18→17:02)
[2018-09-08] MEDS: PREDNISONE PO SCH ×2 (08:18→22:00)
[2018-09-08] MEDS: PROTONIX IV SCH ×2 (08:18→22:01)
[2018-09-08] MEDS: SODIUM CHLORIDE 0.9% INJ SCH (08:18)
[2018-09-08] MEDS: ICAR-C PO SCH ×2 (08:18→22:01)
[2018-09-08] MEDS: LEXAPRO PO SCH (08:18)
[2018-09-08] MEDS: SANTYL OINT TOP SCH (08:19)
--- NOTE | 2018-09-08 09:06 | PROGRESS NOTE ---
DATE: 09/08/2018 SUBJECTIVE: The patient is feeling better, slept a little better last night. Still gets nausea in the middle of the night on occasion, using her oxygen now without difficulty. OBJECTIVE: Vital Signs: Blood pressure of 127/63, respirations 18, pulse 77 and regular, temperature 98.3 degrees Fahrenheit. Oxygen saturation is 96% on 2 L oxygen per nasal cannula. HEENT: She is normocephalic. EOMS intact. PERRLA. Throat clear. Lungs: Have a few scattered rales which she did not have yesterday. Heart: Regular rate and rhythm without murmurs, gallops, or friction rubs. So seems to be still in a sinus rhythm. Abdomen: Soft. Active bowel sounds. No organomegaly or tenderness. Neurological: Intact grossly. Altered mental status problems seem to have resolved. ASSESSMENT: 1. Respiratory distress. 2. Chronic obstructive pulmonary disease. 3. Pneumonia. 4. New rales. 5. Morbid obesity. 6. Adult onset diabetes mellitus. 7. Cellulitis now resolved. 8. Pneumonia resolved. 9. Ulceration left heel improving. This ulceration was infected with MRSA but has looked good for several days. PLAN: Working on rehab. We will get a chest x-ray since she has new rales today. cc: Wallace Meyer Jr, MD
--- NOTE | 2018-09-08 09:29 | Diag Imaging Result Doc PS360 ---
EXAM: CHEST-2 VIEWS 09/08/2018 HISTORY: pneumonia TECHNIQUE: PA and lateral chest COMMENT: The inspiration is slightly suboptimal. There is a PICC line with its tip in the superior vena cava. The lungs are actually better expanded than on 08/31/2018. There are no focal pulmonary opacities. There is some fluid in the major fissure on the left. Slightly increased interstitial markings are present generally. Compared to 08/30/2018 there has been no appreciable change. IMPRESSION: The possibility of mild pulmonary edema cannot be excluded. Electronically signed by Maykel Rodríguez 09/08/2018 9:27 AM
[2018-09-08] MEDS: LOVENOX SUBQ SCH (22:00)
[2018-09-08] MEDS: ULTRAM PO PRN (22:00)
[2018-09-09] MEDS: HUMALOG SUBQ SCH ×5 (02:43→16:11)
[2018-09-09] MEDS: DUONEB (A & A) INH SCH ×2 (03:39→08:20)
[2018-09-09 06:54] LABS: AGAP 12; ALB/GLOB RATIO 1.2; ALBUMIN 3.3 g/dL (3.5-5.0); ALKALINE PHOSPHATASE 65 U/L (32-104); BUN 21 mg/dL (8-22); CALCIUM 8.7 mg/dL (8.8-10.2); CHLORIDE 95 mmol/L (98-107); COSMO 288; CREATININE 0.6 mg/dL (0.5-0.9); ESTIMATED GFR > 60; GLUCOSE 327 mg/dL (70-104); GOT 27 U/L (10-30); GPT 62 U/L (10-36); POTASSIUM 4.3 mmol/L (3.5-5.1); SODIUM 136 mmol/L (136-145); TCO2 29 mmol/L (25-35); TOTAL BILIRUBIN 0.31 mg/dL (0.20-1.00); TOTAL PROTEIN 6.1 g/dL (6.3-8.3)
[2018-09-09 07:15] LABS: HEMATOCRIT 33.4 % (37.0-47.0); HEMOGLOBIN 10.4 g/dL (12.0-16.0); MCH 25.7 PG (27-31); MCHC 31.1 g/dL (33-37); MCV 82.7 FL (81-99); MPV 12.7 FL (7.4-10.4); RBC 4.04 XMIL (4.2-5.4); RDW 22.1 % (11.5-14.5); WBC 7.05 X1000 (4.8-10.8)
[2018-09-09] MEDS: LEXAPRO PO SCH (08:07)
[2018-09-09] MEDS: NEURONTIN PO SCH ×2 (08:07→13:11)
[2018-09-09] MEDS: PREDNISONE PO SCH (08:07)
[2018-09-09] MEDS: ASPIRIN PO SCH (08:08)
[2018-09-09] MEDS: CARDIZEM PO SCH ×3 (08:08→16:11)
[2018-09-09] MEDS: PROTONIX IV SCH (08:08)
[2018-09-09] MEDS: ICAR-C PO SCH (08:08)
[2018-09-09] MEDS: CENTRUM SILVER PO SCH (08:08)
[2018-09-09] MEDS: SODIUM CHLORIDE 0.9% INJ SCH (08:08)
[2018-09-09] MEDS: LOTRIMIN 1% CREAM TOP SCH ×2 (08:12→13:11)
[2018-09-09] MEDS: MUCOMYST 20% INH SCH (08:20)
--- NOTE | 2018-09-09 09:35 | DISCHARGE SUMMARY ---
DATE: 09/09/2018 FINAL DIAGNOSES: 1. Respiratory distress. 2. Exacerbation of chronic obstructive pulmonary disease. 3. Left lower lobe pneumonia. 4. Cellulitis lower extremities. 5. Ulceration of left heel with methicillin-resistant Staphylococcus aureus, now resolved. 6. Adult onset diabetes mellitus. 7. Morbid obesity. 8. Diastolic heart failure. 9. Hypertension. 10. Anxiety. 11. Chronic anemia. 12. Pulmonary hypertension. Patient has diabetes and neuropathy as well. The patient did have altered mental status while in the hospital. She is not much better. Recently, we stopped her amitriptyline and her clonidine. Vital signs today show temperature of 97.5 degrees Fahrenheit. Pulse 86 and regular, respirations 18, blood pressure 153/78. She did go into atrial fibrillation while she was in the hospital but is back to normal sinus rhythm. She has had a GI bleed in the past and did not follow up on her GI workup, so, she has had her anticoagulants withheld. She understands this risk. She is not interested in having the studies done. She has continued to smoke until she came into the hospital this time and she has been encouraged to stop smoking forever and not use tobacco any form. Consultations were made with 1. Infectious Disease, Dr. Sumit Polanco. 2. GI, Dr. Jer Bejarano. 3. Cardiology, Dr. Cristofer Caraballo. 4. Hem/Onc, Dr. Yuly Melo. 5. Neurology, Dr. Precious Cain. 6. Pulmonology, Dr. Jhon Mir. Patient is somewhat debilitated. She does not exercise much at home anyway. Now that she has been in the hospital, she has been very weak. During her hospital course, she was given antibiotics. Her pneumonia cleared up. Her cellulitis cleared up. Ulceration of the left heel was just about healed. She did have MRSA there. This is all healed now, and I do not think that she is contagious at all. PHYSICAL EXAMINATION: General: She is an obese, 68-year-old, white female in no apparent distress. She is feeling better. HEENT: She is normocephalic. EOMS intact. PERRLA. Throat clear. Lungs clear to auscultation and percussion without rhonchi, rales, or wheezes. Heart: Regular rate and rhythm without murmurs, gallops, or friction rubs. Abdomen is soft. Active bowel sounds. No organomegaly or tenderness. Neurological exam intact grossly. Sensory and motor intact. Cellulitis has cleared. Ulcer has almost completely healed in. PLAN: We will send to rehab with her home medicines but will leave off her amitriptyline and her clonidine. Please see medication list. She will be on prednisone 40 tapering. She will also be on Symbicort and Spiriva. cc: Wallace Meyer Jr, MD
[2018-09-09] MEDS: SANTYL OINT TOP SCH (11:02)
[2018-09-09 14:27] VITALS: BP 145/82
== END 2018-09-09 18:14 | disposition swing bed (61) | DRG 207 ==
LOC: ED 15:29 → SUATTDRO 21:28 → EDIPHOLD 21:28 → ICU 08-13 05:22 → 4N 08-31 12:12 → 3N 08-31 21:56
PROVIDERS: ADMIT Emergency Medicine; ATTEND Emergency Medicine
CPT/HCPCS: 36415; 36430; 36569; 51702; 70450; 71010; 71020; 71045; 71046; 71250; 74000; 74018; 74177; 76000; 76770; 78582; 80048; 80053; 80069; 80202; 81001; 82040; 82270; 82550; 82570; 82607; 82728; 82746; 82805; 82948; 83540; 83550; 83605; 83735; 83880; 84100; 84132; 84134; 84145; 84156; 84300; 84484; 85025; 85027; 85379; 85610; 85730; 86850; 86900; 86901; 86920; 87015; 87040; 87070; 87077; 87102; 87116; 87147; 87186; 87205; 87206; 87275; 87276; 87804; 88112; 88305; 88312; 88313; 93005; 93010; 93306; 93308; 93970; 94002; 94003; 94150; 94640; 94660; 94667; 94668; 94761; 94762; 94799; 96365; 96366; 96367; 96375; 97110; 97162; 97530; 99285; A9270; A9539; A9540; C8929; C9113; J0171; J0330; J0690; J0696; J0712; J1160; J1630; J1650; J1815; J1940; J2175; J2248; J2250; J2405; J2543; J2920; J3370; J3475; J3480; J7030; J7040; J7050; J7506; J7512; P9016; P9047; Q9957; Q9966; Q9967; S0164; XXXXX